=== PATIENT | male | born 1970 | race Caucasian/White ===

== ENCOUNTER → 2016-12-04 | Outpatient (REF) ==
--- NOTE | 2016-12-04 15:22 | REP ---
LUMBAR SPINE SERIES: Three views. HISTORY: Degenerative disc disease. Comparison study is from December 08, 2007. FINDINGS: Lumbar vertebral body heights are preserved. Disc spaces are maintained. Alignment is normal. There is minimal discogenic spurring anteriorly at L3-4 and L5-S1 . Pedicles and posterior elements are intact. Psoas margins are symmetric. Sacrum and SI joints are unremarkable. IMPRESSION: Minimal discogenic spurring anteriorly at L3-4 and L5-S1 . Otherwise negative. Signed by Geronimo Roger MD 12/04/2016 05:04 P
== END ==
LOC: M SMT 14:45
PROVIDERS: ATTEND Internal Medicine
DX: M54.16 Radiculopathy, lumbar region (principal)

== ENCOUNTER 2018-01-02 22:17 | Inpatient (IN) | payer OTHER ==
[2018-01-02 23:32] LABS: BASO % 0.4 % (0.0-1.0); EOS # 0.2 10^3/uL (0.0-0.50); IMMATURE GRANULOCYTE % 0.2 % (0-3.0); LYMPH # 2.9 10^3/uL (1.5-4.5); LYMPH % 31.8 % (24.0-44.0); MEAN CORPUSCULAR HEMOGLOBIN 30.8 pg (27.0-33.0); MEAN CORPUSCULAR HGB CONC 33.3 g/dl (32.0-36.5); MEAN CORPUSCULAR VOLUME 92.3 fl (80.0-96.0); MONO # 0.7 10^3/uL (0.0-0.8); MONO % 7.6 % (0.0-5.0); NEUTROPHILS # 5.3 10^3/uL (1.8-7.7); PLATELET COUNT, AUTOMATED 261 10^3/uL (150-450); RED BLOOD COUNT 4.55 10^6/uL (4.30-6.10); RED CELL DISTRIBUTION WIDTH 12.7 % (11.5-14.5); WHITE BLOOD COUNT 9.1 10^3/uL (4.0-10.0)
[2018-01-02 23:45] LABS: ALBUMIN 4.1 GM/DL (3.2-5.2); ALKALINE PHOSPHATASE 58 U/L (45-117); ALT/SGPT 14 U/L (12-78); ANION GAP 7 MEQ/L (8-16); AST/SGOT 13 U/L (7-37); BILIRUBIN,DIRECT < 0.1 MG/DL (0.0-0.2); BILIRUBIN,TOTAL 0.5 MG/DL (0.2-1.0); BLOOD UREA NITROGEN 20 MG/DL (7-18); CALCIUM LEVEL 9.2 MG/DL (8.5-10.1); CARBON DIOXIDE LEVEL 28 MEQ/L (21-32); CHLORIDE LEVEL 109 MEQ/L (98-107); CPK CREATINE PHOSPHOKINASE 137 U/L (39-308); CREATININE FOR GFR 0.88 MG/DL (0.70-1.30); ETHYL ALCOHOL (ETHANOL) 0.004 % (0.000-0.010); GLOMERULAR FILTRATION RATE > 60.0 (>60); GLUCOSE, FASTING 97 MG/DL (70-100); POTASSIUM SERUM 3.8 MEQ/L (3.5-5.1); SALICYLATE LEVEL < 1.7 MG/DL (5.0-30.0); SODIUM LEVEL 144 MEQ/L (136-145); TOTAL PROTEIN 8.2 GM/DL (6.4-8.2); TROPONIN I < 0.02 NG/ML (< 0.10)
[2018-01-02 23:51] LABS: CK-MB VALUE MASS 2.1 NG/ML (<3.6); MB/CK RELATIVE INDEX 1.53 (< OR =4)
[2018-01-02 23:53] LABS: ACETAMINOPHEN LEVEL < 2.0 UG/ML (10.0-30.0)
[2018-01-03 01:03] LABS: KETONE, URINE AUTO RFX TRACE mg/dL (NEGATIVE); LEUKOCYTE ESTERASE UR AUTO RFX NEGATIVE (NEGATIVE); MUCUS, URINE RFX SMALL (NEGATIVE); NITRITE, URINE AUTO RFX NEGATIVE (NEGATIVE); RBC, URINE AUTO RFX 4 /HPF (0-3); SPECIFIC GRAVITY UR AUTO RFX 1.025 (1.002-1.035); SQUAM EPITHELIAL CELL UR AURFX 0 /HPF (0-6); WBC, URINE AUTO RFX 0 /HPF (0-3)
[2018-01-03 01:06] LABS: AMMONIA < 10 uMOL/L (<32)
[2018-01-03 01:19] LABS: AMPHETAMINES LEVEL URINE NEGATIVE (NEGATIVE); BARBITURATES URINE NEGATIVE (NEGATIVE); BENZODIAZEPINES URINE NEGATIVE (NEGATIVE); CANNABINOIDS URINE NEGATIVE (NEGATIVE); COCAINE METABOLITE URINE NEGATIVE (NEGATIVE); METHADONE URINE NEGATIVE (NEGATIVE); OPIATES URINE NEGATIVE (NEGATIVE); PHENCYCLIDINE URINE NEGATIVE (NEGATIVE)
[2018-01-03] MEDS ORDERED: MOM 30ML SUSPENSION UDC PO (02:15)
[2018-01-03] MEDS ORDERED: traZODone 50 MG TAB PO (02:15)
[2018-01-03] MEDS ORDERED: ACETAMINOPHEN TAB 650MG DOSE (2X325MG) PO (02:15)
[2018-01-03] MEDS ORDERED: MAALOX 30 ML SUSP *UDC PO (02:15)
[2018-01-03] MEDS ORDERED: OLANZapine ORAL DISINTEGRATING TAB 5MG PO (15:30)
[2018-01-03] MEDS: PALIPERIDONE 3 MG ER TAB (INVEGA) PO (21:00)
[2018-01-04] MEDS: PALIPERIDONE 3 MG ER TAB (INVEGA) PO ×2 (08:52→21:00)
[2018-01-05] MEDS: PALIPERIDONE 3 MG ER TAB (INVEGA) PO ×2 (09:00→21:00)
[2018-01-06] MEDS: PALIPERIDONE 3 MG ER TAB (INVEGA) PO ×2 (09:00→20:47)
[2018-01-07] MEDS: PALIPERIDONE 3 MG ER TAB (INVEGA) PO ×2 (09:00→21:00)
[2018-01-07] MEDS: PALIPERIDONE 6 MG ER TAB (INVEGA) PO (12:30)
[2018-01-08] MEDS: PALIPERIDONE 3 MG ER TAB (INVEGA) PO ×3 (08:43→21:00)
[2018-01-08 11:10] LABS: BEDSIDE GLUCOSE 88 MG/DL (70-105)
[2018-01-09] MEDS: PALIPERIDONE 3 MG ER TAB (INVEGA) PO ×2 (08:51→21:00)
[2018-01-10] MEDS: PALIPERIDONE 3 MG ER TAB (INVEGA) PO ×2 (08:56→21:00)
[2018-01-11] MEDS: PALIPERIDONE 3 MG ER TAB (INVEGA) PO ×2 (08:19→20:04)
[2018-01-12] MEDS: PALIPERIDONE 3 MG ER TAB (INVEGA) PO ×2 (09:00→20:17)
[2018-01-13] MEDS: PALIPERIDONE 3 MG ER TAB (INVEGA) PO ×4 (09:00→21:00)
[2018-01-14] MEDS: PALIPERIDONE PALMITATE 234 MG/1.5 ML INJ (INVEGA SUSTENNA)(J2426) IM (11:00)
[2018-01-14] MEDS: PALIPERIDONE 3 MG ER TAB (INVEGA) PO (21:00)
[2018-01-15] MEDS: PALIPERIDONE 3 MG ER TAB (INVEGA) PO (21:00)
== END 2018-01-16 07:05 | disposition home or self-care (01) | DRG 750 ==
LOC: M PSY 01-12 19:11 → M ED 22:17 → M ED INP 01-03 02:06 → M PSY 01-03 02:51
DX: F20.9 Schizophrenia, unspecified (principal); Z91.14 Patient's other noncompliance with medication regimen; F41.9 Anxiety disorder, unspecified; Z65.2 Problems related to release from prison; Z88.0 Allergy status to penicillin

== ENCOUNTER 2018-02-23 15:20 | Inpatient (IN) | payer MEDICARE, MEDICAID, OTHER ==
[2018-02-23 17:42] LABS: HEMATOCRIT 41.4 % (42.0-52.0); HEMOGLOBIN 13.7 g/dl (13.5-17.5); MEAN CORPUSCULAR HGB CONC 33.1 g/dl (32.0-36.5); MEAN CORPUSCULAR VOLUME 90.8 fl (80.0-96.0); PLATELET COUNT, AUTOMATED 241 10^3/uL (150-450); RED BLOOD COUNT 4.56 10^6/uL (4.30-6.10); RED CELL DISTRIBUTION WIDTH 12.5 % (11.5-14.5); WHITE BLOOD COUNT 9.4 10^3/uL (4.0-10.0)
[2018-02-23 18:16] LABS: ALBUMIN 4.3 GM/DL (3.2-5.2); ALKALINE PHOSPHATASE 54 U/L (45-117); ALT/SGPT 24 U/L (12-78); ANION GAP 6 MEQ/L (8-16); AST/SGOT 9 U/L (7-37); BILIRUBIN,DIRECT 0.2 MG/DL (0.0-0.2); BILIRUBIN,TOTAL 0.6 MG/DL (0.2-1.0); BLOOD UREA NITROGEN 13 MG/DL (7-18); CALCIUM LEVEL 9.4 MG/DL (8.5-10.1); CARBON DIOXIDE LEVEL 28 MEQ/L (21-32); CHLORIDE LEVEL 109 MEQ/L (98-107); CREATININE FOR GFR 0.82 MG/DL (0.70-1.30); ETHYL ALCOHOL (ETHANOL) 0.003 % (0.000-0.010); GLOMERULAR FILTRATION RATE > 60.0 (>60); GLUCOSE, FASTING 82 MG/DL (70-100); POTASSIUM SERUM 4.5 MEQ/L (3.5-5.1); SALICYLATE LEVEL < 1.7 MG/DL (5.0-30.0); SODIUM LEVEL 143 MEQ/L (136-145); THYROID STIMULATING HORMONE 0.722 uIU/ML (0.358-3.740); TOTAL PROTEIN 7.6 GM/DL (6.4-8.2)
[2018-02-23 18:22] LABS: ACETAMINOPHEN LEVEL < 2.0 UG/ML (10.0-30.0)
[2018-02-23 19:57] LABS: AMPHETAMINES LEVEL URINE NEGATIVE (NEGATIVE); BARBITURATES URINE NEGATIVE (NEGATIVE); BENZODIAZEPINES URINE NEGATIVE (NEGATIVE); CANNABINOIDS URINE NEGATIVE (NEGATIVE); COCAINE METABOLITE URINE NEGATIVE (NEGATIVE); METHADONE URINE NEGATIVE (NEGATIVE); OPIATES URINE NEGATIVE (NEGATIVE); PHENCYCLIDINE URINE NEGATIVE (NEGATIVE)
[2018-02-23] MEDS ORDERED: MAALOX 30 ML SUSP *UDC PO (20:15)
[2018-02-23] MEDS ORDERED: OLANZapine ORAL DISINTEGRATING TAB 5MG PO (20:15)
[2018-02-23] MEDS ORDERED: ACETAMINOPHEN TAB 650MG DOSE (2X325MG) PO (20:15)
[2018-02-23] MEDS ORDERED: LORazepam 1 MG TAB PO (20:15)
[2018-02-23] MEDS ORDERED: MOM 30ML SUSPENSION UDC PO (20:15)
[2018-02-24] MEDS: risperiDONE 1 MG M-TAB PO ×3 (12:35→20:36)
[2018-02-25] MEDS: risperiDONE 1 MG M-TAB PO ×4 (09:00→21:05)
[2018-02-25] MEDS: traZODone 50 MG TAB PO (21:05)
[2018-02-26] MEDS: risperiDONE 1 MG M-TAB PO ×3 (09:07→21:00)
[2018-02-27] MEDS: risperiDONE 1 MG M-TAB PO ×2 (08:55→20:35)
[2018-02-27] MEDS: TUBERCULIN PPD 5 UNITS/0.1 ML ID (12:22)
[2018-02-28] MEDS: risperiDONE 1 MG M-TAB PO ×2 (08:56→20:25)
[2018-03-01] MEDS: risperiDONE 1 MG M-TAB PO ×2 (09:00→21:00)
[2018-03-01] MEDS: PPD DOCUMENTATION ENTRY MISC XX (13:56)
[2018-03-02] MEDS: risperiDONE 1 MG M-TAB PO ×2 (09:00→21:00)
[2018-03-03] MEDS: risperiDONE 1 MG M-TAB PO ×2 (08:39→21:00)
[2018-03-04] MEDS: risperiDONE 1 MG M-TAB PO ×2 (09:00→20:12)
[2018-03-05] MEDS: risperiDONE 1 MG M-TAB PO ×2 (08:42→20:53)
[2018-03-06] MEDS: risperiDONE 1 MG M-TAB PO ×2 (08:56→21:00)
[2018-03-07] MEDS: risperiDONE 1 MG M-TAB PO ×2 (09:00→20:15)
[2018-03-08] MEDS: risperiDONE 1 MG M-TAB PO ×2 (08:35→21:00)
[2018-03-09] MEDS: risperiDONE 1 MG M-TAB PO ×2 (09:00→21:00)
[2018-03-10] MEDS: risperiDONE 1 MG M-TAB PO ×2 (09:00→21:00)
[2018-03-11] MEDS: risperiDONE 1 MG M-TAB PO ×2 (09:00→21:00)
[2018-03-11] MEDS ORDERED: chlorproMAZINE INJ 50MG/2ML AMP (J3230) IM (11:25)
[2018-03-11] MEDS ORDERED: diphenhydrAMINE INJ 50MG/ML VIAL (J1200) IM (11:25)
[2018-03-11] MEDS: diphenhydrAMINE INJ 50MG/ML VIAL (J1200) IM (11:53)
[2018-03-11] MEDS: chlorproMAZINE INJ 50MG/2ML AMP (J3230) IM (11:53)
[2018-03-12] MEDS: risperiDONE 1 MG M-TAB PO ×2 (09:00→21:00)
[2018-03-13] MEDS: risperiDONE 1 MG M-TAB PO ×2 (08:15→21:00)
[2018-03-14] MEDS: risperiDONE 1 MG M-TAB PO ×2 (09:00→20:14)
[2018-03-15] MEDS: risperiDONE 1 MG M-TAB PO ×2 (08:53→21:00)
[2018-03-16] MEDS: risperiDONE 1 MG M-TAB PO ×2 (08:36→21:00)
[2018-03-17] MEDS: risperiDONE 1 MG M-TAB PO ×2 (08:41→20:41)
[2018-03-18] MEDS: risperiDONE 1 MG M-TAB PO ×2 (09:00→20:48)
[2018-03-19] MEDS: risperiDONE 1 MG M-TAB PO ×2 (09:00→21:55)
[2018-03-19] MEDS: HALOPERIDOL 5 MG/ML VIAL (J1630) IM (10:57)
[2018-03-19] MEDS ORDERED: BENZTROPINE 2 MG TAB PO ×2 (16:00)
[2018-03-19] MEDS ORDERED: diphenhydrAMINE INJ 50MG/ML VIAL (J1200) IM (16:15)
[2018-03-19] MEDS ORDERED: BENZTROPINE MESYLATE 2MG/2ML VIAL IM (16:15)
[2018-03-19] MEDS ORDERED: diphenhydrAMINE 50 MG CAP PO (16:15)
[2018-03-20] MEDS: risperiDONE 1 MG M-TAB PO ×2 (08:55→21:50)
[2018-03-21] MEDS: risperiDONE 1 MG M-TAB PO ×2 (09:11→21:39)
[2018-03-22] MEDS: risperiDONE 1 MG M-TAB PO ×2 (09:05→21:13)
[2018-03-23] MEDS: risperiDONE 1 MG M-TAB PO ×2 (08:42→21:55)
[2018-03-24] MEDS: risperiDONE 1 MG M-TAB PO ×2 (09:40→22:11)
[2018-03-25] MEDS: risperiDONE 1 MG M-TAB PO ×2 (08:35→21:00)
[2018-03-25] MEDS: risperiDONE 2 MG TAB PO (21:46)
[2018-03-26] MEDS: risperiDONE 1 MG M-TAB PO (11:46)
== END 2018-03-26 15:00 | DRG 885 ==
LOC: M PSY 02-26 15:00 → M ED 15:20 → M ED INP 20:10 → M PSY 21:07
DX: F20.0 Paranoid schizophrenia (principal); Z79.899 Other long term (current) drug therapy; Z88.0 Allergy status to penicillin

== ENCOUNTER 2019-05-21 12:54 | Inpatient (IN) | payer MEDICARE, MEDICAID ==
[~2019-05-21] VITALS: Ht 172.7 cm; Wt 93.6 kg
[~2019-05-21 12:54] MED LIST: PATIENT COMMENTS
[2019-05-21 14:31] LABS: HEMATOCRIT 50.9 % (42.0-52.0); HEMOGLOBIN 16.7 g/dl (13.5-17.5); MEAN CORPUSCULAR HEMOGLOBIN 29.9 pg (27.0-33.0); MEAN CORPUSCULAR HGB CONC 32.8 g/dl (32.0-36.5); MEAN CORPUSCULAR VOLUME 91.1 fl (80.0-96.0); PLATELET COUNT, AUTOMATED 298 10^3/uL (150-450); RED BLOOD COUNT 5.59 10^6/uL (4.30-6.10); WHITE BLOOD COUNT 16.5 10^3/uL (4.0-10.0)
[2019-05-21 15:32] LABS: ACETAMINOPHEN LEVEL < 2.0 UG/ML (10.0-30.0); ALT/SGPT 20 U/L (12-78); BILIRUBIN,DIRECT < 0.1 MG/DL (0.0-0.2); BILIRUBIN,TOTAL 0.4 MG/DL (0.2-1.0); BLOOD UREA NITROGEN 9 MG/DL (7-18); CALCIUM LEVEL 9.3 MG/DL (8.5-10.1); CARBON DIOXIDE LEVEL 25 MEQ/L (21-32); CHLORIDE LEVEL 106 MEQ/L (98-107); CREATININE FOR GFR 0.98 MG/DL (0.70-1.30); ETHYL ALCOHOL (ETHANOL) < 0.003 % (0.000-0.010); GLOMERULAR FILTRATION RATE > 60.0 (>60); GLUCOSE, FASTING 83 MG/DL (70-100); POTASSIUM SERUM 3.9 MEQ/L (3.5-5.1); SALICYLATE LEVEL 2.4 MG/DL (5.0-30.0); SODIUM LEVEL 140 MEQ/L (136-145); THYROID STIMULATING HORMONE 0.639 uIU/ML (0.358-3.740); TOTAL PROTEIN 8.3 GM/DL (6.4-8.2)
[2019-05-21 18:05] LABS: AMPHETAMINES LEVEL URINE NEGATIVE (NEGATIVE); BARBITURATES URINE NEGATIVE (NEGATIVE); BENZODIAZEPINES URINE NEGATIVE (NEGATIVE); CANNABINOIDS URINE NEGATIVE (NEGATIVE); COCAINE METABOLITE URINE NEGATIVE (NEGATIVE); METHADONE URINE NEGATIVE (NEGATIVE); OPIATES URINE NEGATIVE (NEGATIVE); PHENCYCLIDINE URINE NEGATIVE (NEGATIVE)
[2019-05-21] MEDS ORDERED: ACETAMINOPHEN TAB 650MG DOSE (2X325MG) PO PRN (18:45)
[2019-05-21] MEDS ORDERED: OLANZapine ORAL DISINTEGRATING TAB 5MG PO PRN (18:45)
[2019-05-21] MEDS ORDERED: MOM 30ML SUSPENSION UDC PO PRN (18:45)
[2019-05-21] MEDS ORDERED: MAALOX 30 ML SUSP *UDC PO PRN (18:45)
[2019-05-21] MEDS ORDERED: traZODone 50 MG TAB PO PRN (18:45)
[2019-05-21] MEDS: PALIPERIDONE 3 MG ER TAB (INVEGA) PO SCH (22:00)
[2019-05-21 23:44] VITALS: BP 125/89
[2019-05-21 23:56] VITALS: BP 125/89
[2019-05-22] MEDS: PALIPERIDONE 3 MG ER TAB (INVEGA) PO SCH ×2 (09:28→21:58)
[2019-05-22] MEDS: ITRACONAZOLE 100 MG CAP (SPORANOX) PO SCH (10:00)
--- NOTE | 2019-05-22 10:04 | HPEPDOC ---
[facility] Medical History & Physical Date of Admission May 22, 2019 Date of Service: May 22, 2019 History and Physical CONSULT FOR: Psych medical H&P HISTORY OF PRESENT ILLNESS: This is a 48-year-old man who sees Jose C Carmona in [place] reveals this with her sister has some long documented history of schizophrenia. Was referred to the emergency room by his sister after was noted he had stopped taking his medication. The evening. He is seen and examined in the inpatient mental health unit today where he provides one-word yes or no answers and is agreeable for medical care. He tells me that he is feeling well other than some itching of his feet. Otherwise patient denies weigh t loss, hair loss, headache, visual changes, chest pain, shortness of breath, cough, nausea, vomiting, diarrhea, abdominal pain, muscle aches, worsening arthritis, change in mood PAST MEDICAL HISTORY: 1. Schizophrenia. 2. Anxiety depression. 3. Bipolar disorder 4. Psychosis. HOME MEDICATIONS: Please see below. ALLERGIES: Please see below PAST SURGICAL HISTORY: 1. None. SOCIAL HISTORY: Lives with: Sr., Employment: Not currently working, Tobacco use: Denies. ETOH: Denies, Illicit drug use: Denies, CODE STATUS: Full code FAMILY HISTORY:Reviewed and noncontributory REVIEW OF SYSTEMS: 10 systems reviewed and negative other than HPI PHYSICAL EXAMINATION: VITAL SIGNS: Please see below GENERAL: Flat affect man appears older than stated agesitting up in bed awake alert speaking in one-word answers] HEENT: Moist mucous membranes no elevation in CVP, port indentation CARDIOVASCULAR: S1 S2 regular no additional heart sounds appreciated. RESPIRATORY: Clear to auscultation bilaterally. ABDOMINAL: Bowel sounds present abdomen soft and nontender, obese EXTREMITIES: No clubbing cyanosis or edema, poor nail care, diffuse tenia pedis NEUROLOGICAL: Spontaneously moves all 4 extremities cranial 2 through 12 grossly intact no gross focal deficits appreciated PSYCHOLOGICAL: Flat LABORATORY DATA: See below. MICROBIOLOGY: Please see below. IMAGING: None ASSESSMENT & PLAN: This is a 48-year-old man admitted with schizophrenia medical nonadherence. PROBLEMS: 1. Schizophrenia: Management as per psychiatry. 2. Tenia pedis. Onychomycosis: We'll start itraconazole 200 mg daily likely 12 weeks. She would likely benefit from close outpatient follow-up with podiatry. We'll check EKG and monitor QT while patient receiving first few doses DVT PROPHYLAXIS: Ambulating Thank you for this interesting consult, we will continue to follow along with you. Please Vocera secure text or call with any specific questions. Vital Signs Vital Signs Date Time Temp Pulse Resp B/P (MAP) Pulse Ox O2 Delivery O2 Flow Rate FiO2 05/22/19 08:48 Room Air 05/21/19 23:56 98.6 82 16 125/89 (101) 99 Laboratory Data Labs 24H Laboratory Tests 2 05/21/19 14:15: Nucleated Red Blood Cells % (auto) 0.0, Anion Gap 9, Glomerular Filtration Rate > 60.0, Calcium Level 9.3, Aspartate Amino Transf (AST/SGOT) 14, Alanine Aminotransferase (ALT/SGPT) 20, Alkaline Phosphatase 75, Total Bilirubin 0.4, Direct Bilirubin < 0.1, Total Protein 8.3H, Albumin 4.0, Albumin/Globulin Ratio 0.93L, Thyroid Stimulating Hormone (TSH) 0.639, Salicylates Level 2.4L, Acetaminophen Level < 2.0L, Ethyl Alcohol Level < 0.003 05/21/19 15:40: Urine Color YELLOW, Urine Appearance CLEAR, Urine pH 5.0, Urine Specific [place] 1.013, Urine Protein NEGATIVE, Urine Glucose (UA) NEGATIVE, Urine Ketones NEGATIVE, Urine Blood 1+H, Urine Nitrite NEGATIVE, Urine Bilirubin NEGATIVE, Urine Urobilinogen 0.2, Urine Leukocyte Esterase NEGATIVE, Urine WBC (Auto) 1, Urine RBC (Auto) 1, Urine Hyaline Casts (Auto) 0, Urine Bacteria (Auto) NEGATIVE, Urine Squamous Epithelial Cells 0, Urine Mucus (Auto) SMALL, Urine Sperm (Auto) , Urine Amphetamines Screen NEGATIVE, Urine Benzodiazepines Screen NEGATIVE, Urine Opiates Screen NEGATIVE, Urine Methadone Screen NEGATIVE, Urine Barbiturates Screen NEGATIVE, Urine Phencyclidine Screen NEGATIVE, Urine Cocaine Metabolite Screen NEGATIVE, Urine Cannabinoids Screen NEGATIVE CBC/BMP Laboratory Tests 05/21/19 14:15 Red Blood Count 5.59, Mean Corpuscular Volume 91.1, Mean Corpuscular Hemoglobin 29.9, Mean Corpuscular Hemoglobin Concent 32.8, Red Cell Distribution Width 14.2 Home Medications No Active Prescriptions or Reported Meds Allergies Coded Allergies: Penicillins (Verified Allergy, Severe, hives, 05/21/19) A-FIB/CHADSVASC A-FIB History Current/History of A-Fib/PAF?: No YARELIS CHRISTIANSON MD May 22, 2019 10:04
[2019-05-22] MEDS ORDERED: LORazepam 1 MG TAB PO STA (14:44)
[2019-05-22] MEDS ORDERED: LORazepam 1 MG TAB PO PRN (14:45)
[2019-05-22 16:05] VITALS: BP 104/68
--- NOTE | 2019-05-22 16:13 | ECGEPIP ---
[facility] Test Date: 2019-05-22 Pat Name: VAL CONTRERAS Department: Room: [place] [address] Gender: Male Security Delivery Specialist: JEANNETTE : 1970 Requested By: YARELIS CHRISTIANSON Order Number: [id number] Reading MD: Parveen Santiago Measurements Intervals [place] Rate: 58 P: 48 SC: 181 QRS: 5 QRSD: 91 T: 40 QT: 387 QTc: 381 Interpretive Statements Sinus bradycardia Somewhat prominent R waves in V1 through V3; consider Right ventricular hypertrophy versus prior PWMI. Normal QT interval No change from 01/03/18 Electronically Signed on 05-22-2019 16:13:11 EDT by Parveen Santiago
[2019-05-23 06:40] VITALS: BP 117/71
[2019-05-23] MEDS: ITRACONAZOLE 100 MG CAP (SPORANOX) PO SCH (08:00)
[2019-05-23] MEDS: PALIPERIDONE 3 MG ER TAB (INVEGA) PO SCH ×2 (08:39→21:00)
[2019-05-23] MEDS: FLUoxetine 10 MG CAP PO SCH (09:00)
--- NOTE | 2019-05-23 12:48 | MHIPNPDOC ---
[facility] Progress Note Progress Note DATE OF SERVICE: 05/23/19 HISTORY: Patient is a 48 year old male who was previously admitted to our Unit (twice in 2018) and transferred the last time to [facility], where he remai modesta hospitalized until January, when he was discharged. According to PSA evaluation in the ED: "Pt. sister requested order picker/assembler order. Pt. has dx of Schizophrenia, has been living with his sister. Sister reported bizarre behavior, pt. decompensating, not taking meds, not showering, verbally aggressive and physically aggressive. Pt. states 'no' when asked if he knows why he is here. He does not communicate besides an occasional 'no'. he is calm and cooperative. He is quite unkempt, stares out of door window, does not show any emotion, blank stare. Pt. was d/c from [facility] 01/2019 after 10 months there. Pt. has not been keeping appt or seeing his AP worker." VITAL SIGNS: See below. NEW TEST RESULTS: New ECG from 05/23/19 shows Sinus rhythm with sinus Arrhythmia, Normal EC G, Unconfirmed Report. Qt-Qtc is 367/392. CURRENT MEDICATIONS: See below. MENTAL STATUS EXAMINATION: Patient is a 48 year old male, who is alert, walking the hallways, wearing hospital clothes, disheveled, with poor hygiene. Speech: Is almost none. He responds with a single word and that word is mostly "no". Impoverished speech. Language skills are impaired at this time Thought processes including: very disorganized, he is psychotic Thought content: Delusional, psychotic, he responds to internal stimuli. Abstract reasoning, and computation: Poor Description of associations: Poor, loose Description of abnormal or psychotic thoughts: Delusional, disorganized, he responds to internal stimuli. Denies HI/SI. Judgment: poor. Insight: poor. Orientation: not oriented, his thought is disorganized. Recent and remote memory: impaired. Attention span and concentration: poor. Fund of knowledge: unable to assess Mood: "i don't know". Affect: flat, constricted DIAGNOSES: 1. Schizophrenia, chronic, severe ASSESSMENT: Patient's presentation is similar to previous hospitalizations. he has not been aggressive or violent,. He can be re directed. He seems to be depressed. I will start treatment with Prozac 10 mgs PO daily. MANAGEMENT PLAN: 1. Paliperidone 3 mgs PO BID 2. Prozac 10 mgs PO daily TIME SPENT: 30 minutes. Vital Signs Vital Signs Date Time Temp Pulse Resp B/P (MAP) Pulse Ox O2 Delivery O2 Flow Rate FiO2 05/23/19 06:40 97.4 61 16 117/71 (86) 05/22/19 08:48 Room Air 05/21/19 23:56 99 Current Medications Current Medications Medications (Trade) Dose Ordered Sig/Ana Route PRN Reason Start Time Stop Time Status Last Admin Dose Admin Acetaminophen (Tylenol Tab) 650 mg Q6HP PRN PO HEADACHE or DISCOMFORT 05/21/19 18:45 Al Hydrox/Mg Hydrox/Simethicone (Mylanta) 30 ml Q4HP PRN PO HEARTBURN/INDIGESTION 05/21/19 18:45 Home Med (Med Rec Complete!) ASDIRECTED XX 05/21/19 18:00 05/21/19 17:58 DC Home Med (Med Rec Complete!) ASDIRECTED XX 05/21/19 19:30 05/21/19 19:31 DC Itraconazole (Sporanox) 200 mg DAILY@0800 PO 05/22/19 10:00 05/29/19 09:59 Lorazepam (Ativan) 1 mg STAT STAT PO 05/22/19 14:44 05/22/19 14:45 Cancel Lorazepam (Ativan) 1 mg TID PRN PO ANXIETY 05/22/19 14:45 Cancel Magnesium Hydroxide (Milk Of Magnesia) 30 ml DAILYPRN PRN PO CONSTIPATION 05/21/19 18:45 Olanzapine (ZyPREXA ZYDIS) 5 mg Q6HP PRN PO ANXIETY/AGITATION 05/21/19 18:45 Paliperidone (Invega) 3 mg BID PO 05/21/19 21:00 05/23/19 08:39 Trazodone HCl (Desyrel) 50 mg QHSP PRN PO INSOMNIA 05/21/19 18:45 Allergies Coded Allergies: Penicillins (Verified Allergy, Severe, hives, 05/21/19) ZURI BASSETT MD May 23, 2019 12:47
--- NOTE | 2019-05-23 12:49 | MHHPEPDOC ---
[facility] History & Physical History and Physical DATE OF ADMISSION: May 21, 2019 at 18:38 LEGAL STATUS AT ADMISSION: . CHIEF COMPLAINT: genetic supervisor order issued from [facility] for dangerous behavior History of Present Illness HISTORY OF THE PRESENT ILLNESS: Patient is a 48 year old male who was previously admitted to our Unit (twice in 2018) and transferred the last time to [facility], where he remained hospitalized until January, when he was discharged. According to PSA evaluation in the ED: "Pt. sister requested supervisor picking crew order. Pt. has dx of Schizophrenia, has been living with his sister. Sister reported bizarre behavior, pt. decompensating, not taking meds, not showering, verbally aggressive and physically aggressive. Pt. states 'no' when asked if he knows why he is here. He does not communicate besides an occassional 'no'. he is calm and cooperative. He is quite unkempt, stares out of door window, does not show any emotion, blank stare. Pt. was d/c from [facility] 01/2019 after 10 months there. Pt. has not been keeping appt or seeing his AP worker." Psychiatric Review of Systems Depression (2 or more weeks): denies (Patient is a por historian but he says he is not depressed and has not been depressed. He denies having suicidal thoughts or intentions and added: How would I kill myself? How do you that?) Trish (4 or more days of): other (Patient is a poor historian) Psychosis: denies PTSD: other (Patient is a poor historian, he is not answering to all the questions) Anxiety: other (Patient is a poor historian, he didn't answer most of the questions ) Anxiety/ 6 months or more of: other (Patient is appor historian) Past Psychiatric History Previous Psychiatric Diagnosis: Previous diagnosis of schizophrenia Previous Psychiatric Admissions: Twice during 2018, the last time, he was transferred to [facility], where he was treated for 10 months and recently (January 2019) discharged. Suicide Attempts: "No" Psychiatric Follow-up: According to h/o he has not been compliant with medications, nor f/u appointments Psychiatric medications: Unknown, he has not been compliant. Past Medical History Medical Problems Patient is a poor historian, Family Medical/Psychiatric HX Medical Problems Denies Psychiatric Disorders: H/O Schizophrenia, medications and f/u non compliance. Addiction: No Suicide Attemps/Completions: "No" Addiction History denies Social History Childhood: Patient is a poor historian, he denies having problems with his parents or his siblings as a child Abuse/Trauma: Denies Current Living Situation: He was living with his sister since he was d/c/d from [facility] in January 2019 but apparently he became aggressive and she became concerned, called the Police because she felt unsafe with him being decompensated. Education: According to previous records, he dropped out of school while he was in 10th. grade. Employment: Unemployed Social Support: Until recently, his sister and last year. Legal: Last year he was in penitentiary because apparently he was aggressive towards fam rosmery members. Marital: Not , has 23 year old daughter Mental Status Examination Mental Status Examination General Appearance: unkempt, disheveled, ds/not appear stated age (He looks older than stated), hospital scubs/clothing Build: thin Demeanor: mistrustful, withdrawn, preoccupied Eye Contact: avoidant Activity: slowed, anxious Behavior: cooperative, resistant Speech: non-spontaneous, impoverished, mild Mood "Nervous" Affect: constricted, anxious Thought Process: blocked, slow Thought Content (Delusions): none reported Thought Content (Other): preoccupied, internal-stimuli Thought Content (Aggressive): none reported Perception (Hallucinations): none reported Perception (Other): none reported Cognition (Impairment of): memory Cognition(Intelligence Est.): other (Patient seems unable to answers most of the questions during his psychiatric interview but he is capable of answering others, and he is oriented x 3. ) Oriented: Awake, Alert, Oriented times three Insight: poor Judgment: Poor Psychosis: Denies Diagnoses 1. R/O Unspecified psychotic disorder 2. R/O Schizophrenia, residual type 3. R/O Anxiety disorder Assement/Plan Assessment Patient has been walking in the hallway,he has not been aggressive or violent. He follows directions. he seems to be responding to internal stimuli. he has not had a shower since he was discharged from [facility] in January and this morning, he went to the shower, got in and got out immediately, he didn't shower. He is very ill and this is very similar to previous presentations. patient has a h/o non compliance. Initial Treatment Plan 1. Patient was admitted on a 9.39 status. 2. Complete history was obtained. 3. With patients permission, family will be contacted and database will be expanded. 4. Patients medication regimen will be reviewed and changed accordingly. 5. Patient will be provided with protected environment. 6. Patient will be treated with individual, group, and milieu therapies. 7. Patient will receive supportive psych-education. 8. Discharge planning will commence immediately. 9. Outpatient follow-up treatment will be strongly recommended. 10. The initial treatment plan will focus initially on: * Depression. * Risk for suicide. * Anxiety * Risk for harming others * Poor impulse control * Altered perceptions? ESTIMATED LENGTH OF STAY: 7-10 DAYS. Vital Signs Vital Signs Date Time Temp Pulse Resp B/P (MAP) Pulse Ox O2 Delivery O2 Flow Rate FiO2 05/22/19 08:48 Room Air 05/21/19 23:56 98.6 82 16 125/89 (101) 99 Laboratory Data 24H Labs Laboratory Tests 2 05/21/19 14:15: Nucleated Red Blood Cells % (auto) 0.0, Anion Gap 9, Glomerular Filtration Rate > 60.0, Calcium Level 9.3, Aspartate Amino Transf (AST/SGOT) 14, Alanine Aminotransferase (ALT/SGPT) 20, Alkaline Phosphatase 75, Total Bilirubin 0.4, Direct Bilirubin < 0.1, Total Protein 8.3H, Albumin 4.0, Albumin/Globulin Ratio 0.93L, Thyroid Stimulating Hormone (TSH) 0.639, Salicylates Level 2.4L, Acetaminophen Level < 2.0L, Ethyl Alcohol Level < 0.003 05/21/19 15:40: Urine Color YELLOW, Urine Appearance CLEAR, Urine pH 5.0, Urine Specific [place] 1.013, Urine Protein NEGATIVE, Urine Glucose (UA) NEGATIVE, Urine Ketones NEGATIVE, Urine Blood 1+H, Urine Nitrite NEGATIVE, Urine Bilirubin NEGATIVE, Urine Urobilinogen 0.2, Urine Leukocyte Esterase NEGATIVE, Urine WBC (Auto) 1, Urine RBC (Auto) 1, Urine Hyaline Casts (Auto) 0, Urine Bacteria (Auto) NEGATIVE, Urine Squamous Epithelial Cells 0, Urine Mucus (Auto) SMALL, Urine Sperm (Auto) , Urine Amphetamines Screen NEGATIVE, Urine Benzodiazepines Screen NEGATIVE, Urine Opiates Screen NEGATIVE, Urine Methadone Screen NEGATIVE, Urine Barbiturates Screen NEGATIVE, Urine Phencyclidine Screen NEGATIVE, Urine Cocaine Metabolite Screen NEGATIVE, Urine Cannabinoids Screen NEGATIVE CBC/BMP Laboratory Tests 05/21/19 14:15 Red Blood Count 5.59, Mean Corpuscular Volume 91.1, Mean Corpuscular Hemoglobin 29.9, Mean Corpuscular Hemoglobin Concent 32.8, Red Cell Distribution Width 14.2 Medications No Active Prescriptions or Reported Meds Allergies Coded Allergies: Penicillins (Verified Allergy, Severe, hives, 05/21/19) A-FIB/CHADSVASC A-FIB History Current/History of A-Fib/PAF?: No Current PO Anticoag Therapy: No Age/Risk Factor Scoring CHADSVASC: CHADSVASC Response (Comments) Value Age Risk Factor Age < 65 years old 0 Gender Risk Factor Male 0 Hx of CHF No 0 Hx of HTN No 0 Hx of Stroke/TIA/or VTE No 0 Hx of Diabetes No 0 Hx of Vascular Disease No 0 Total 0 Treatment Treatment ordered: NONE Reason Anticoagulant not given: Not indicated/[id number] ZURI BASSETT MD May 22, 2019 14:08
--- NOTE | 2019-05-23 15:49 | ECGEPIP ---
[facility] Test Date: 2019-05-23 Pat Name: VAL CONTRERAS Department: Room: [place] [address] Gender: Male Control Systems Specialist: JEANNETTE : 1970 Requested By: YARELIS CHRISTIANSON Order Number: [id number] Reading MD: Parveen Santiago Measurements Intervals [place] Rate: 72 P: 60 MO: 169 QRS: 12 QRSD: 93 T: 43 QT: 367 QTc: 404 Interpretive Statements SINUS RHYTHM WITH SINUS ARRHYTHMIA Incomplete Right bundle branch block with prominent R waves in V1 through V3; consider Right ventricular hypertrophy versus prior PWMI. Increased rate but otherwise unchanged from 05/22/19 Electronically Signed on 05-23-2019 15:48:50 EDT by Parveen Santiago
[2019-05-23 16:05] VITALS: BP 108/68
[2019-05-24 06:23] VITALS: BP 119/78
[2019-05-24] MEDS: ITRACONAZOLE 100 MG CAP (SPORANOX) PO SCH (09:19)
[2019-05-24] MEDS: FLUoxetine 10 MG CAP PO SCH (09:19)
[2019-05-24] MEDS: PALIPERIDONE 3 MG ER TAB (INVEGA) PO SCH ×2 (09:19→23:38)
--- NOTE | 2019-05-24 09:29 | MHIPNPDOC ---
[facility] Progress Note Progress Note Inpatient Progress Note Efren Bettencourt MRN: N/A Date of : N/A Date of Service: 05/24/2019 History of Present Illness The patient is a 48-year-old man who previously was admitted to the inpatient unit in 2018 and transferred last time to [place], presented initially on a pickup order as he had been living with his sister and he had become increasingly bizarre, decompensated, not taking his medications, becoming verbally and physically aggressive. He is noted to be unkempt and had been staring into the window on until assessment in the ER fairly psychotic. Interval History I attempted to meet with the patient, however, he refused to get out of bed. He declined pleasantly, but say that he was "good." I had asked if he has any suicidal or homicidal thoughts and he declined or medication interactions. He has declined to meet with the majority of his treatment team even after significant prompting. He has had no major behavioral problems overnight, but he has been noted to be fairly bizarre, meandering around the unit, not attending groups and has in general been unable to keep his hygiene as he even with prompting is unable to engage. Review Of Systems As above. Psychotherapy None on this visit. Vital Signs Reviewed. Mental Status Examination General: Poor hygiene Speech: Sparse Thought processes: Appears linear MSK: Smooth and coordinated gait, no signs of tremors or involuntary orofacial movements Thought content: Unclear Abstract reasoning, and computation: Impaired Description of associations: Impaired Description of abnormal or psychotic thoughts: Denies any suicidal or homicidal ideation. Denies any auditory or visual hallucinations. Does not appear to be responding to internal stimuli. Judgment: Poor Insight: Poor Orientation: Alert and orientated 3 Cognition: Grossly normal Recent and remote memory: Intact Attention span and concentration: Intact Fund of knowledge: Adequate Mood: "Fine" Affect: Flat with little reactivity Diagnoses Unspecified psychotic disorder. Rule out schizophrenia. Assessment and Plan Unspecified psychotic disorder: Continue the paliperidone 3 mg BID and 10 mg of Prozac started by Dr. Powell over the weekend. Further observation as he appears to have a fairly long and protracted course in the past. Disposition The patient will need a further admission as he is still fairly psychotic and unable to care for himself. He remains unkempt and unable to cooperate with even the most basic prompting to care for himself. Time Spent 10 minutes. Friday Vital Signs Vital Signs Date Time Temp Pulse Resp B/P (MAP) Pulse Ox O2 Delivery O2 Flow Rate FiO2 05/24/19 06:23 98.0 73 18 119/78 (92) 05/22/19 08:48 Room Air 05/21/19 23:56 99 Current Medications Current Medications Medications (Trade) Dose Ordered Sig/Ana Route PRN Reason Start Time Stop Time Status Last Admin Dose Admin Acetaminophen (Tylenol Tab) 650 mg Q6HP PRN PO HEADACHE or DISCOMFORT 05/21/19 18:45 Al Hydrox/Mg Hydrox/Simethicone (Mylanta) 30 ml Q4HP PRN PO HEARTBURN/INDIGESTION 05/21/19 18:45 Fluoxetine HCl (PROzac) 10 mg DAILY PO 05/23/19 09:00 05/24/19 09:19 Home Med (Med Rec Complete!) ASDIRECTED XX 05/21/19 18:00 05/21/19 17:58 DC Home Med (Med Rec Complete!) ASDIRECTED XX 05/21/19 19:30 05/21/19 19:31 DC Itraconazole (Sporanox) 200 mg DAILY@0800 PO 05/22/19 10:00 05/29/19 09:59 05/24/19 09:19 Lorazepam (Ativan) 1 mg STAT STAT PO 05/22/19 14:44 05/22/19 14:45 Cancel Lorazepam (Ativan) 1 mg TID PRN PO ANXIETY 05/22/19 14:45 Cancel Magnesium Hydroxide (Milk Of Magnesia) 30 ml DAILYPRN PRN PO CONSTIPATION 05/21/19 18:45 Olanzapine (ZyPREXA ZYDIS) 5 mg Q6HP PRN PO ANXIETY/AGITATION 05/21/19 18:45 Paliperidone (Invega) 3 mg BID PO 05/21/19 21:00 05/24/19 09:19 Trazodone HCl (Desyrel) 50 mg QHSP PRN PO INSOMNIA 05/21/19 18:45 Allergies Coded Allergies: Penicillins (Verified Allergy, Severe, hives, 05/21/19) RAMIRO VANN DO May 24, 2019 09:29
[2019-05-24 15:44] VITALS: BP 101/62
[2019-05-25 06:29] VITALS: BP 123/84
[2019-05-25] MEDS: ITRACONAZOLE 100 MG CAP (SPORANOX) PO SCH (08:33)
[2019-05-25] MEDS: PALIPERIDONE 3 MG ER TAB (INVEGA) PO SCH ×2 (08:33→23:31)
[2019-05-25] MEDS: FLUoxetine 10 MG CAP PO SCH (08:33)
--- NOTE | 2019-05-25 12:10 | MHIPNPDOC ---
[facility] Progress Note Progress Note Inpatient Progress Note Efren Bettencourt MRN: N/A Date of : N/A Date of Service: 05/25/2019 History of Present Illness The patient is a 48-year-old man who previously was admitted to the inpatient unit in 2018 and transferred last time to [place], presented initially on a pickup order as he had been living with his sister and he had become increasingly bizarre, decompensated, not taking his medications, becoming verbally and physically aggressive. He is noted to be unkempt and had been staring into the window on until assessment in the ER fairly psychotic. Interval History Attempted again to meet with patient today, he declined, sitting in his bed staring unusually into the wall. The patient has been fairly isolative for staff, has not been attending groups, but has no major behavioral problems. When asked if the patient had any medication problems, he declined stating that he did not, however, still attempted to get basic clinical information from patient as he sat in bed. He did not appear to resist my further questioning. He reports that he feels "fine here." Review Of Systems General: Denies fever or appetite changes Cardiovascular: Denies Chest pain or palpitations GI: Denies Nausea, vomiting, or bowel changes Respiratory: Denies shortness of breath or cough Neuro: Denies dizziness, tremors Derm: Denies any rashes or pruritus : Denies any dysuria or urinary problem MSK: Denies any muscle tightness or stiffness HEENT: Denies any vision changes or headaches Heme/Lymph: denies any bruising or bleeding Endo: denies any cold/heat intolerance or water intake changes Psychotherapy None on this visit. Vital Signs Reviewed. Mental Status Examination General: Poor hygiene Speech: Sparse Thought processes: Appears linear MSK: Smooth and coordinated gait, no signs of tremors or involuntary orofacial movements Thought content: Unclear Abstract reasoning, and computation: Impaired Description of associations: Impaired Description of abnormal or psychotic thoughts: Denies any suicidal or homicidal ideation. Denies any auditory or visual hallucinations. Does not appear to be responding to internal stimuli. Judgment: Poor Insight: Poor Orientation: Alert and orientated 3 Cognition: Grossly normal Recent and remote memory: Intact Attention span and concentration: Intact Fund of knowledge: Adequate Mood: "Fine" Affect: Flat with little reactivity Diagnoses Unspecified psychotic disorder. Rule out schizophrenia. Assessment and Plan Unspecified psychotic disorder: Continue paliperidone 3 mg BID. We will consider adding six at night. Later if patient does not make improvement, continue Prozac 10 mg. Disposition The patient will need a further admission as he is still fairly psychotic and unable to care for himself. He remains unkempt and unable to cooperate with even the most basic prompting to care for himself. Time Spent 15 minutes. Friday Vital Signs Vital Signs Date Time Temp Pulse Resp B/P (MAP) Pulse Ox O2 Delivery O2 Flow Rate FiO2 05/25/19 06:29 97.0 60 18 123/84 (97) 05/22/19 08:48 Room Air 05/21/19 23:56 99 Current Medications Current Medications Medications (Trade) Dose Ordered Sig/Ana Route PRN Reason Start Time Stop Time Status Last Admin Dose Admin Acetaminophen (Tylenol Tab) 650 mg Q6HP PRN PO HEADACHE or DISCOMFORT 05/21/19 18:45 Al Hydrox/Mg Hydrox/Simethicone (Mylanta) 30 ml Q4HP PRN PO HEARTBURN/INDIGESTION 05/21/19 18:45 Fluoxetine HCl (PROzac) 10 mg DAILY PO 05/23/19 09:00 05/25/19 08:33 Home Med (Med Rec Complete!) ASDIRECTED XX 05/21/19 18:00 05/21/19 17:58 DC Home Med (Med Rec Complete!) ASDIRECTED XX 05/21/19 19:30 05/21/19 19:31 DC Itraconazole (Sporanox) 200 mg DAILY@0800 PO 05/22/19 10:00 05/29/19 09:59 05/25/19 08:33 Lorazepam (Ativan) 1 mg STAT STAT PO 05/22/19 14:44 05/22/19 14:45 Cancel Lorazepam (Ativan) 1 mg TID PRN PO ANXIETY 05/22/19 14:45 Cancel Magnesium Hydroxide (Milk Of Magnesia) 30 ml DAILYPRN PRN PO CONSTIPATION 05/21/19 18:45 Olanzapine (ZyPREXA ZYDIS) 5 mg Q6HP PRN PO ANXIETY/AGITATION 05/21/19 18:45 Paliperidone (Invega) 3 mg BID PO 05/21/19 21:00 05/25/19 08:33 Trazodone HCl (Desyrel) 50 mg QHSP PRN PO INSOMNIA 05/21/19 18:45 Allergies Coded Allergies: Penicillins (Verified Allergy, Severe, hives, 05/21/19) RAMIRO VANN DO May 25, 2019 12:10
[2019-05-25 17:57] VITALS: BP 111/73
[2019-05-26 06:34] VITALS: BP 122/76
--- NOTE | 2019-05-26 08:12 | ECGEPIP ---
[facility] Test Date: 2019-05-24 Pat Name: VAL CONTRERAS Department: Room: [place] [address] Gender: Male [employer] Letter [employer]rier: DARREN : 1970 Requested By: YARELIS CHRISTIANSON Order Number: [id number] Reading MD: Sade Mckinnon Measurements Intervals [place] Rate: 73 P: 62 IA: 169 QRS: 37 QRSD: 89 T: 44 QT: 340 QTc: 375 Interpretive Statements SINUS RHYTHM INCOMPLETE RIGHT BUNDLE BRANCH BLOCK EARLY R WAVE PROGRESSION SIMILAR TO 05/23/19 Electronically Signed on 05-26-2019 8:12:23 EDT by Sade Mckinnon
[2019-05-26] MEDS: FLUoxetine 10 MG CAP PO SCH (08:47)
[2019-05-26] MEDS: ITRACONAZOLE 100 MG CAP (SPORANOX) PO SCH (08:47)
[2019-05-26] MEDS: PALIPERIDONE 3 MG ER TAB (INVEGA) PO SCH ×2 (08:47→21:00)
--- NOTE | 2019-05-26 16:33 | MHIPNPDOC ---
[facility] Progress Note Progress Note Inpatient Progress Note Efren Bettencourt MRN: N/A Date of : N/A Date of Service: 05/26/2019 History of Present Illness The patient is a 48-year-old man who previously was admitted to the inpatient unit in 2018 and transferred last time to [place], presented initially on a pickup order as he had been living with his sister and he had become increasingly bizarre, decompensated, not taking his medications, becoming verbally and physically aggressive. He is noted to be unkempt and had been staring into the window on until assessment in the ER fairly psychotic. Interval History The patient was attempted to be met with today. However, he declines to meet with this provider. He still remains odd, walks around the unit. Has had no behavioral problems, but at times appears volitional in terms of who he will not interact with. He does not attend groups, but has been noted to be fairly unusual in his affect. He's denies any side effects of medications or other concerns. Review Of Systems As above. Psychotherapy None on this visit. Vital Signs Reviewed. Mental Status Examination General: Poor hygiene Speech: Sparse Thought processes: Appears linear MSK: Smooth and coordinated gait, no signs of tremors or involuntary orofacial movements Thought content: Unclear Abstract reasoning, and computation: Impaired Description of associations: Impaired Description of abnormal or psychotic thoughts: Denies any suicidal or homicidal ideation. Denies any auditory or visual hallucinations. Does not appear to be responding to internal stimuli. Judgment: Poor Insight: Poor Orientation: Alert and orientated 3 Cognition: Grossly normal Recent and remote memory: Intact Attention span and concentration: Intact Fund of knowledge: Adequate Mood: "Fine" Affect: Flat with little reactivity Diagnoses Unspecified psychotic disorder. Rule out schizophrenia. Assessment and Plan Unspecified psychotic disorder: Increase paliperidone to 9 mg QHS. Continue Prozac 10 mg daily. Disposition The patient will need a further admission as he is still fairly psychotic and unable to care for himself. He remains unkempt and unable to cooperate with even the most basic prompting to care for himself. Time Spent 10 minutes [id number]. Friday Vital Signs Vital Signs Date Time Temp Pulse Resp B/P (MAP) Pulse Ox O2 Delivery O2 Flow Rate FiO2 05/26/19 06:34 97.2 74 18 122/76 (91) 05/22/19 08:48 Room Air 05/21/19 23:56 99 Current Medications Current Medications Medications (Trade) Dose Ordered Sig/Ana Route PRN Reason Start Time Stop Time Status Last Admin Dose Admin Acetaminophen (Tylenol Tab) 650 mg Q6HP PRN PO HEADACHE or DISCOMFORT 05/21/19 18:45 Al Hydrox/Mg Hydrox/Simethicone (Mylanta) 30 ml Q4HP PRN PO HEARTBURN/INDIGESTION 05/21/19 18:45 Fluoxetine HCl (PROzac) 10 mg DAILY PO 05/23/19 09:00 05/26/19 08:47 Home Med (Med Rec Complete!) ASDIRECTED XX 05/21/19 18:00 05/21/19 17:58 DC Home Med (Med Rec Complete!) ASDIRECTED XX 05/21/19 19:30 05/21/19 19:31 DC Itraconazole (Sporanox) 200 mg DAILY@0800 PO 05/22/19 10:00 05/29/19 09:59 05/26/19 08:47 Lorazepam (Ativan) 1 mg STAT STAT PO 05/22/19 14:44 05/22/19 14:45 Cancel Lorazepam (Ativan) 1 mg TID PRN PO ANXIETY 05/22/19 14:45 Cancel Magnesium Hydroxide (Milk Of Magnesia) 30 ml DAILYPRN PRN PO CONSTIPATION 05/21/19 18:45 Olanzapine (ZyPREXA ZYDIS) 5 mg Q6HP PRN PO ANXIETY/AGITATION 05/21/19 18:45 Paliperidone (Invega) 3 mg BID PO 05/21/19 21:00 05/26/19 08:47 Trazodone HCl (Desyrel) 50 mg QHSP PRN PO INSOMNIA 05/21/19 18:45 Allergies Coded Allergies: Penicillins (Verified Allergy, Severe, hives, 05/21/19) RAMIRO VANN DO May 26, 2019 16:33
[2019-05-26 17:52] VITALS: BP 103/66
[2019-05-27 06:45] VITALS: BP 105/63
[2019-05-27] MEDS: ITRACONAZOLE 100 MG CAP (SPORANOX) PO SCH (08:58)
[2019-05-27] MEDS: FLUoxetine 10 MG CAP PO SCH (08:59)
[2019-05-27] MEDS: PALIPERIDONE 3 MG ER TAB (INVEGA) PO SCH ×2 (08:59→20:52)
--- NOTE | 2019-05-27 10:52 | MHIPNPDOC ---
[facility] Progress Note Progress Note Inpatient Progress Note Efren Bettencourt MRN: N/A Date of : N/A Date of Service: 05/27/2019 History of Present Illness The patient is a 48-year-old man who previously was admitted to the inpatient unit in 2018 and transferred last time to [place], presented initially on a pickup order as he had been living with his sister and he had become increasingly bizarre, decompensated, not taking his medications, becoming verbally and physically aggressive. He is noted to be unkempt and had been staring into the window on until assessment in the ER fairly psychotic. Interval History The patient was attempted to be met with, however, he declines meeting with this provider. He still walks bizarrely around the unit. Denying any side effects from medications or any acute issues. Observation on the unit appears to show the patient interacts at times, but remains isolative to his room. He has not attended groups and generally remains fairly distorted, needing significant prompting in order to take care of basic necessities or feed himself. Review Of Systems Unknown. Psychotherapy None on this visit. Vital Signs Reviewed. Mental Status Examination General: Poor hygiene Speech: Sparse Thought processes: Appears linear MSK: Smooth and coordinated gait, no signs of tremors or involuntary orofacial movements Thought content: Unclear Abstract reasoning, and computation: Impaired Description of associations: Impaired Description of abnormal or psychotic thoughts: Denies any suicidal or homicidal ideation. Denies any auditory or visual hallucinations. Does not appear to be responding to internal stimuli. Judgment: Poor Insight: Poor Orientation: Alert and orientated 3 Cognition: Grossly normal Recent and remote memory: Intact Attention span and concentration: Intact Fund of knowledge: Adequate Mood: "Fine" Affect: Flat with little reactivity Diagnoses Unspecified psychotic disorder. Rule out schizophrenia. Assessment and Plan Unspecified psychotic disorder: Increase paliperidone to 9 mg QHS. Continue Prozac 10 mg daily. Disposition The patient will need a further admission as he is still fairly psychotic and unable to care for himself. He remains unkempt and unable to cooperate with even the most basic prompting to care for himself. Time Spent 10 minutes. Vital Signs Vital Signs Date Time Temp Pulse Resp B/P (MAP) Pulse Ox O2 Delivery O2 Flow Rate FiO2 05/27/19 06:45 97.8 62 12 105/63 (77) 05/22/19 08:48 Room Air 05/21/19 23:56 99 Current Medications Current Medications Medications (Trade) Dose Ordered Sig/Ana Route PRN Reason Start Time Stop Time Status Last Admin Dose Admin Acetaminophen (Tylenol Tab) 650 mg Q6HP PRN PO HEADACHE or DISCOMFORT 05/21/19 18:45 Al Hydrox/Mg Hydrox/Simethicone (Mylanta) 30 ml Q4HP PRN PO HEARTBURN/INDIGESTION 05/21/19 18:45 Fluoxetine HCl (PROzac) 10 mg DAILY PO 05/23/19 09:00 05/27/19 08:59 Home Med (Med Rec Complete!) ASDIRECTED XX 05/21/19 18:00 05/21/19 17:58 DC Home Med (Med Rec Complete!) ASDIRECTED XX 05/21/19 19:30 05/21/19 19:31 DC Itraconazole (Sporanox) 200 mg DAILY@0800 PO 05/22/19 10:00 05/29/19 09:59 05/27/19 08:58 Lorazepam (Ativan) 1 mg STAT STAT PO 05/22/19 14:44 05/22/19 14:45 Cancel Lorazepam (Ativan) 1 mg TID PRN PO ANXIETY 05/22/19 14:45 Cancel Magnesium Hydroxide (Milk Of Magnesia) 30 ml DAILYPRN PRN PO CONSTIPATION 05/21/19 18:45 Olanzapine (ZyPREXA ZYDIS) 5 mg Q6HP PRN PO ANXIETY/AGITATION 05/21/19 18:45 Paliperidone (Invega) 3 mg BID PO 05/21/19 21:00 05/27/19 08:59 Trazodone HCl (Desyrel) 50 mg QHSP PRN PO INSOMNIA 05/21/19 18:45 Allergies Coded Allergies: Penicillins (Verified Allergy, Severe, hives, 05/21/19) RMAIRO VANN DO May 27, 2019 10:52
[2019-05-28 06:11] VITALS: BP 121/68
[2019-05-28] MEDS: FLUoxetine 10 MG CAP PO SCH (09:25)
[2019-05-28] MEDS: ITRACONAZOLE 100 MG CAP (SPORANOX) PO SCH (09:25)
[2019-05-28 17:28] VITALS: BP 110/72
[2019-05-28] MEDS: PALIPERIDONE 3 MG ER TAB (INVEGA) PO SCH (21:54)
[2019-05-29 06:27] VITALS: BP 110/65
[2019-05-29] MEDS: ITRACONAZOLE 100 MG CAP (SPORANOX) PO SCH (08:00)
[2019-05-29] MEDS: FLUoxetine 10 MG CAP PO SCH (08:50)
[2019-05-29 15:57] VITALS: BP 98/59
[2019-05-29] MEDS: PALIPERIDONE 3 MG ER TAB (INVEGA) PO SCH (21:00)
[2019-05-30 06:19] VITALS: BP 128/86
[2019-05-30] MEDS: FLUoxetine 10 MG CAP PO SCH (08:51)
[2019-05-30 15:53] VITALS: BP 111/67
[2019-05-30] MEDS: PALIPERIDONE 3 MG ER TAB (INVEGA) PO SCH (21:00)
[2019-05-31 06:04] VITALS: BP 117/76
[2019-05-31] MEDS: FLUoxetine 10 MG CAP PO SCH (09:00)
--- NOTE | 2019-05-31 10:19 | MHIPNPDOC ---
[facility] Progress Note Progress Note Inpatient Progress Note Efren Bettencourt MRN: N/A Date of : N/A Date of Service: 05/31/2019 History of Present Illness The patient is a 48-year-old man who previously was admitted to the inpatient unit in 2018 and transferred last time to [place], presented initially on a pickup order as he had been living with his sister and he had become increasingly bizarre, decompensated, not taking his medications, becoming verbally and physically aggressive. He is noted to be unkempt and had been staring into the window on until assessment in the ER fairly psychotic. Interval History The patient is attempted to be met with today. He initially declines, however, he does allow me to ask a few questions. He has been laying in bed, however, he does get up to interact with staff at times. He has been denying any symptoms other than saying "I like it here." He has at times answered appropriately and other times has been bizarre, walking around the unit. He is attending to his very basic needs, but needs significant prompting for hygiene and other activities of daily living. He describes that he is not having any trouble with the medications and has been sleeping well. Review Of Systems General: Denies fever or appetite changes Cardiovascular: Denies chest pain or palpitations GI: Denies Nausea, vomiting, or bowel changes Respiratory: Denies shortness of breath or cough Neuro: Denies dizziness, tremors Derm: Denies any rashes or pruritus : Denies any dysuria or urinary dysfunction MSK: Denies any muscle tightness or stiffness HEENT: Denies any vision changes or headaches Heme/Lymph: Denies any bruising or bleeding Endo: Denies any cold/heat intolerance or water intake changes Psychotherapy None on this visit. Vital Signs Reviewed. Mental Status Examination General: Poor hygiene Speech: Sparse Thought processes: Appears linear MSK: Smooth and coordinated gait, no signs of tremors or involuntary orofacial movements Thought content: Unclear Abstract reasoning, and computation: Impaired Description of associations: Impaired Description of abnormal or psychotic thoughts: Denies any suicidal or homicidal ideation. Denies any auditory or visual hallucinations. Does not appear to be r esponding to internal stimuli. Judgment: Poor Insight: Poor Orientation: Alert and orientated 3 Cognition: Grossly normal Recent and remote memory: Intact Attention span and concentration: Intact Fund of knowledge: Adequate Mood: "Okay" Affect: Flat with little reactivity Diagnoses Unspecified psychotic disorder. Rule out schizophrenia. Assessment and Plan Unspecified psychotic disorder: Continue paliperidone 9 mg QHS and Prozac 10 mg daily. Possible augmentation of clozapine. Considering referral for long-term treatment. Disposition The patient will need a further admission as he is still fairly psychotic and unable to care for himself. He remains unkempt and unable to cooperate with even the most basic prompting to care for himself. Time Spent 15 minutes Friday Vital Signs Vital Signs Date Time Temp Pulse Resp B/P (MAP) Pulse Ox O2 Delivery O2 Flow Rate FiO2 05/31/19 06:04 97.4 67 14 117/76 (90) Current Medications Current Medications Medications (Trade) Dose Ordered Sig/Ana Route PRN Reason Start Time Stop Time Status Last Admin Dose Admin Acetaminophen (Tylenol Tab) 650 mg Q6HP PRN PO HEADACHE or DISCOMFORT 05/21/19 18:45 Al Hydrox/Mg Hydrox/Simethicone (Mylanta) 30 ml Q4HP PRN PO HEARTBURN/INDIGESTION 05/21/19 18:45 Fluoxetine HCl (PROzac) 10 mg DAILY PO 05/23/19 09:00 05/28/19 09:25 Home Med (Med Rec Complete!) ASDIRECTED XX 05/21/19 18:00 05/21/19 17:58 DC Home Med (Med Rec Complete!) ASDIRECTED XX 05/21/19 19:30 05/21/19 19:31 DC Itraconazole (Sporanox) 200 mg DAILY@0800 PO 05/22/19 10:00 05/29/19 09:59 DC 05/28/19 09:25 Lorazepam (Ativan) 1 mg STAT STAT PO 05/22/19 14:44 05/22/19 14:45 Cancel Lorazepam (Ativan) 1 mg TID PRN PO ANXIETY 05/22/19 14:45 Cancel Magnesium Hydroxide (Milk Of Magnesia) 30 ml DAILYPRN PRN PO CONSTIPATION 05/21/19 18:45 Olanzapine (ZyPREXA ZYDIS) 5 mg Q6HP PRN PO ANXIETY/AGITATION 05/21/19 18:45 Paliperidone (Invega) 3 mg BID PO 05/21/19 21:00 05/27/19 10:56 DC 05/27/19 08:59 Paliperidone (Invega) 9 mg QHS PO 05/27/19 21:00 05/28/19 21:54 Trazodone HCl (Desyrel) 50 mg QHSP PRN PO INSOMNIA 05/21/19 18:45 Allergies Coded Allergies: Penicillins (Verified Allergy, Severe, hives, 05/21/19) RAMIRO VANN DO May 31, 2019 10:19
[2019-05-31 15:37] VITALS: BP 95/56
[2019-05-31] MEDS: PALIPERIDONE 3 MG ER TAB (INVEGA) PO SCH (21:25)
[2019-06-01 06:43] VITALS: BP 121/73
[2019-06-01] MEDS: FLUoxetine 10 MG CAP PO SCH (09:15)
--- NOTE | 2019-06-01 11:55 | MHIPNPDOC ---
[facility] Progress Note Progress Note Efren Bettencourt Inpatient Progress Note Efren Bettencourt Select Gender MRN: N/A Date of : MM/DD/YYYY Date of Service: 06/01/2019 History of Present Illness The patient is a 48-year-old man who previously was admitted to the inpatient unit in 2018 and transferred last time to [place], presented initially on a pickup order as he had been living with his sister and he had become increasingly bizarre, decompensated, not taking his medications, becoming verbally and physically aggressive. He is noted to be unkempt and had been staring into the window on initial assessment in the ER, fairly psychotic. Interval History The patient is met with today, he appears to be much more amenable to meeting in the provider's office. He reportedly has been still bizarre, isolative to his room. The patient meets but does not sit down. He stares blankly, answering questions in a yes or no fashion, very concrete in his thought process. The patient reports that he does not know why he is here but does not appear to be overly upset about being here. He has been noted to be sitting in his room bizarrely staring at han, generally not interacting, has not been attending groups. Review Of Systems General: Denies fever or appetite changes Cardiovascular: Denies chest pain or palpitations GI: Denies Nausea, vomiting, or bowel changes Respiratory: Denies shortness of breath or cough Neuro: Denies dizziness, tremors Derm: Denies any rashes or pruritus : Denies any dysuria or urinary dysfunction MSK: Denies any muscle tightness or stiffness HEENT: Denies any vision changes or headaches Heme/Lymph: Denies any bruising or bleeding Endo: Denies any cold/heat intolerance or water intake changes Psychotherapy None on this visit. Vital Signs Reviewed. Mental Status Examination General: Poor hygiene Speech: Sparse Thought processes: Appears linear MSK: Smooth and coordinated gait, no signs of tremors or involuntary orofacial movements Thought content: Unclear Abstract reasoning, and computation: Impaired Description of associations: Impaired Description of abnormal or psychotic thoughts: Denies any suicidal or homicidal ideation. Denies any auditory or visual hallucinations. Does not appear to be responding to internal stimuli. Judgment: Poor Insight: Poor Orientation: Alert and orientated 3 Cognition: Grossly normal Recent and remote memory: Intact Attention span and concentration: Intact Fund of knowledge: Adequate Mood: "Okay" Affect: Flat with little reactivity Diagnoses Unspecified psychotic disorder. Rule out schizophrenia. Assessment and Plan Unspecified psychotic disorder: Continue paliperidone 9 mg QHS and Prozac 10 mg daily. Possible augmentation of clozapine. Considering referral for long-term treatment. Disposition The patient will need a further admission, as he is still fairly psychotic and unable to care for himself. He remains unkempt and unable to cooperate with even the most basic prompting to care for himself. Time Spent 15 minutes [id number]. Vital Signs Vital Signs Date Time Temp Pulse Resp B/P (MAP) Pulse Ox O2 Delivery O2 Flow Rate FiO2 06/01/19 06:43 97.1 58 14 121/73 (89) Current Medications Current Medications Medications (Trade) Dose Ordered Sig/Ana Route PRN Reason Start Time Stop Time Status Last Admin Dose Admin Acetaminophen (Tylenol Tab) 650 mg Q6HP PRN PO HEADACHE or DISCOMFORT 05/21/19 18:45 Al Hydrox/Mg Hydrox/Simethicone (Mylanta) 30 ml Q4HP PRN PO HEARTBURN/INDIGESTION 05/21/19 18:45 Fluoxetine HCl (PROzac) 10 mg DAILY PO 05/23/19 09:00 06/01/19 09:15 Home Med (Med Rec Complete!) ASDIRECTED XX 05/21/19 18:00 05/21/19 17:58 DC Home Med (Med Rec Complete!) ASDIRECTED XX 05/21/19 19:30 05/21/19 19:31 DC Itraconazole (Sporanox) 200 mg DAILY@0800 PO 05/22/19 10:00 05/29/19 09:59 DC 05/28/19 09:25 Lorazepam (Ativan) 1 mg STAT STAT PO 05/22/19 14:44 05/22/19 14:45 Cancel Lorazepam (Ativan) 1 mg TID PRN PO ANXIETY 05/22/19 14:45 Cancel Magnesium Hydroxide (Milk Of Magnesia) 30 ml DAILYPRN PRN PO CONSTIPATION 05/21/19 18:45 Olanzapine (ZyPREXA ZYDIS) 5 mg Q6HP PRN PO ANXIETY/AGITATION 05/21/19 18:45 Paliperidone (Invega) 3 mg BID PO 05/21/19 21:00 05/27/19 10:56 DC 05/27/19 08:59 Paliperidone (Invega) 9 mg QHS PO 05/27/19 21:00 05/31/19 21:25 Trazodone HCl (Desyrel) 50 mg QHSP PRN PO INSOMNIA 05/21/19 18:45 Allergies Coded Allergies: Penicillins (Verified Allergy, Severe, hives, 05/21/19) RAMIRO VANN DO Jun 01, 2019 11:55
[2019-06-01 16:03] VITALS: BP 98/60
[2019-06-01] MEDS: PALIPERIDONE 3 MG ER TAB (INVEGA) PO SCH (21:43)
[2019-06-02 06:20] VITALS: BP 131/72
[2019-06-02] MEDS: FLUoxetine 10 MG CAP PO SCH (09:00)
--- NOTE | 2019-06-02 10:57 | MHIPNPDOC ---
[facility] Progress Note Progress Note Efren Bettencourt Inpatient Progress Note Efren Bettencourt Select Gender MRN: N/A Date of : MM/DD/YYYY Date of Service: 06/02/2019 History of Present Illness The patient is a 48-year-old man who previously was admitted to the inpatient unit in 2018 and transferred last time to [place], presented initially on a pickup order as he had been living with his sister and he had become increasingly bizarre, decompensated, not taking his medications, becoming verbally and physically aggressive. He is noted to be unkempt and had been staring into the window on initial assessment in the ER, fairly psychotic. Interval History The patient is attempted to be met with today. He still remains quite psychotic, not attending groups. He was found to have been taking his medications and disposing off them in the wastebasket. The patient declined to meet with this provider as he stared into the wall near his bed. He did answer a few questions, but appears to continue to be very concrete, answering questions in only a "yes or no" fashion. The patient has not had any major behavioral problems other than the aforementioned disposal of his medications. He reports that he is "fine." Review Of Systems General: Denies fever or appetite changes Cardiovascular: Denies chest pain or palpitations GI: Denies Nausea, vomiting, or bowel changes Respiratory: Denies shortness of breath or cough Neuro: Denies dizziness, tremors Derm: Denies any rashes or pruritus : Denies any dysuria or urinary dysfunction MSK: Denies any muscle tightness or stiffness HEENT: Denies any vision changes or headaches Heme/Lymph: Denies any bruising or bleeding Endo: Denies any cold/heat intolerance or water intake changes Psychotherapy None on this visit. Vital Signs Reviewed. Mental Status Examination General: Poor hygiene Speech: Sparse Thought processes: Appears linear MSK: Smooth and coordinated gait, no signs of tremors or involuntary orofacial movements Thought content: Unclear Abstract reasoning, and computation: Impaired Description of associations: Impaired Description of abnormal or psychotic thoughts: Denies any suicidal or homicidal ideation. Denies any auditory or visual hallucinations. Does not appear to be r esponding to internal stimuli. Judgment: Poor Insight: Poor Orientation: Alert and orientated 3 Cognition: Grossly normal Recent and remote memory: Intact Attention span and concentration: Intact Fund of knowledge: Adequate Mood: "Okay" Affect: Flat with little reactivity Diagnoses Unspecified psychotic disorder. Rule out schizophrenia. Assessment and Plan Unspecified psychotic disorder: Continue paliperidone 9 mg QHS and Prozac 10 mg daily. Possible augmentation of clozapine. Considering referral for long-term treatment. his medications. If he continues to do this we'll consider alternatives such as dissolving or liquid forms, but would require changing him off of the previously well-tolerated paliperidone. Disposition The patient will need a further admission, as he is still fairly psychotic and unable to care for himself. He remains unkempt and unable to cooperate with even the most basic prompting to care for himself. Time Spent 15 minutes. Vital Signs Vital Signs Date Time Temp Pulse Resp B/P (MAP) Pulse Ox O2 Delivery O2 Flow Rate FiO2 06/02/19 08:19 Room Air 06/02/19 06:20 97.4 61 14 131/72 (91) Current Medications Current Medications Medications (Trade) Dose Ordered Sig/Ana Route PRN Reason Start Time Stop Time Status Last Admin Dose Admin Acetaminophen (Tylenol Tab) 650 mg Q6HP PRN PO HEADACHE or DISCOMFORT 05/21/19 18:45 Al Hydrox/Mg Hydrox/Simethicone (Mylanta) 30 ml Q4HP PRN PO HEARTBURN/INDIGESTION 05/21/19 18:45 Fluoxetine HCl (PROzac) 10 mg DAILY PO 05/23/19 09:00 06/01/19 09:15 Home Med (Med Rec Complete!) ASDIRECTED XX 05/21/19 18:00 05/21/19 17:58 DC Home Med (Med Rec Complete!) ASDIRECTED XX 05/21/19 19:30 05/21/19 19:31 DC Itraconazole (Sporanox) 200 mg DAILY@0800 PO 05/22/19 10:00 05/29/19 09:59 DC 05/28/19 09:25 Lorazepam (Ativan) 1 mg STAT STAT PO 05/22/19 14:44 05/22/19 14:45 Cancel Lorazepam (Ativan) 1 mg TID PRN PO ANXIETY 05/22/19 14:45 Cancel Magnesium Hydroxide (Milk Of Magnesia) 30 ml DAILYPRN PRN PO CONSTIPATION 05/21/19 18:45 Olanzapine (ZyPREXA ZYDIS) 5 mg Q6HP PRN PO ANXIETY/AGITATION 05/21/19 18:45 Paliperidone (Invega) 3 mg BID PO 05/21/19 21:00 05/27/19 10:56 DC 05/27/19 08:59 Paliperidone (Invega) 9 mg QHS PO 05/27/19 21:00 06/01/19 21:43 Trazodone HCl (Desyrel) 50 mg QHSP PRN PO INSOMNIA 05/21/19 18:45 Allergies Coded Allergies: Penicillins (Verified Allergy, Severe, hives, 05/21/19) RAMIRO VANN DO Jun 02, 2019 10:57
[2019-06-02 16:09] VITALS: BP 103/66
[2019-06-02] MEDS: PALIPERIDONE 3 MG ER TAB (INVEGA) PO SCH (21:00)
[2019-06-03 06:00] VITALS: BP 107/63
[2019-06-03] MEDS: FLUoxetine 10 MG CAP PO SCH (09:00)
--- NOTE | 2019-06-03 11:44 | MHIPNPDOC ---
[facility] Progress Note Progress Note Efren Bettencourt Inpatient Progress Note Efren Bettencourt Select Gender MRN: N/A Date of : MM/DD/YYYY Date of Service: 06/03/2019 History of Present Illness The patient is a 48-year-old man who previously was admitted to the inpatient unit in 2018 and transferred last time to [place], presented initially on a pickup order as he had been living with his sister and he had become increasingly bizarre, decompensated, not taking his medications, becoming verbally and physically aggressive. He is noted to be unkempt and had been staring into the window on initial assessment in the ER, fairly psychotic. Interval History The patient is met with today. He refuses to meet, instead stares off into the distance. He answers only a few questions before refusing to answer any more questions. He is laying in his bed. He generally only comes out to eat. He still remains difficult, as he has been starting to refuse his medications and has been noted to cheek them. The patient has been still bizarre, unable to care for himself, and takes significant prompting for basic hygiene or other activities of daily living. No major behavioral problems overnight. Review Of Systems Patient declines to answer. Psychotherapy None on this visit. Vital Signs Reviewed. Mental Status Examination General: Poor hygiene Speech: Sparse Thought processes: Appears linear MSK: Smooth and coordinated gait, no signs of tremors or involuntary orofacial movements Thought content: Unclear Abstract reasoning, and computation: Impaired Description of associations: Impaired Description of abnormal or psychotic thoughts: Denies any suicidal or homicidal ideation. Denies any auditory or visual hallucinations. Does not appear to be responding to internal stimuli. Judgment: Poor Insight: Poor Orientation: Alert and orientated 3 Cognition: Grossly normal Recent and remote memory: Intact Attention span and concentration: Intact Fund of knowledge: Adequate Mood: "Okay" Affect: Flat with little reactivity Diagnoses Unspecified psychotic disorder. Rule out schizophrenia. Assessment and Plan Unspecified psychotic disorder: Discontinue paliperidone at this time. Will start Zyprexa Zydis 5 mg BID. Will likely need treatment over objection. Will consider discontinuing Prozac, as likely unhelpful. Disposition The patient will need a further admission, as he is still fairly psychotic and unable to care for himself. He remains unkempt and unable to cooperate with even the most basic prompting to care for himself. Time Spent 10 minutes [id number]. Vital Signs Vital Signs Date Time Temp Pulse Resp B/P (MAP) Pulse Ox O2 Delivery O2 Flow Rate FiO2 06/03/19 06:00 98.4 65 14 107/63 (78) 06/02/19 08:19 Room Air Current Medications Current Medications Medications (Trade) Dose Ordered Sig/Ana Route PRN Reason Start Time Stop Time Status Last Admin Dose Admin Acetaminophen (Tylenol Tab) 650 mg Q6HP PRN PO HEADACHE or DISCOMFORT 05/21/19 18:45 Al Hydrox/Mg Hydrox/Simethicone (Mylanta) 30 ml Q4HP PRN PO HEARTBURN/INDIGESTION 05/21/19 18:45 Fluoxetine HCl (PROzac) 10 mg DAILY PO 05/23/19 09:00 06/01/19 09:15 Home Med (Med Rec Complete!) ASDIRECTED XX 05/21/19 18:00 05/21/19 17:58 DC Home Med (Med Rec Complete!) ASDIRECTED XX 05/21/19 19:30 05/21/19 19:31 DC Itraconazole (Sporanox) 200 mg DAILY@0800 PO 05/22/19 10:00 05/29/19 09:59 DC 05/28/19 09:25 Lorazepam (Ativan) 1 mg STAT STAT PO 05/22/19 14:44 05/22/19 14:45 Cancel Lorazepam (Ativan) 1 mg TID PRN PO ANXIETY 05/22/19 14:45 Cancel Magnesium Hydroxide (Milk Of Magnesia) 30 ml DAILYPRN PRN PO CONSTIPATION 05/21/19 18:45 Olanzapine (ZyPREXA ZYDIS) 5 mg Q6HP PRN PO ANXIETY/AGITATION 05/21/19 18:45 Paliperidone (Invega) 3 mg BID PO 05/21/19 21:00 05/27/19 10:56 DC 05/27/19 08:59 Paliperidone (Invega) 9 mg QHS PO 05/27/19 21:00 06/01/19 21:43 Trazodone HCl (Desyrel) 50 mg QHSP PRN PO INSOMNIA 05/21/19 18:45 Allergies Coded Allergies: Penicillins (Verified Allergy, Severe, hives, 05/21/19) RAMIRO VANN DO Jun 03, 2019 11:44
[2019-06-03 17:40] VITALS: BP 110/66
[2019-06-03] MEDS: OLANZapine ORAL DISINTEGRATING TAB 5MG PO SCH (21:00)
[2019-06-04 06:10] VITALS: BP 120/82
[2019-06-04] MEDS: OLANZapine ORAL DISINTEGRATING TAB 5MG PO SCH ×2 (09:00→20:51)
[2019-06-04] MEDS: FLUoxetine 10 MG CAP PO SCH (09:00)
--- NOTE | 2019-06-04 09:52 | MHIPNPDOC ---
[facility] Progress Note Progress Note Efren Bettencourt Inpatient Progress Note Efren Bettencourt Select Gender MRN: N/A Date of : MM/DD/YYYY Date of Service: 06/04/2019 History of Present Illness The patient is a 48-year-old man who previously was admitted to the inpatient unit in 2018 and transferred last time to [place], presented initially on a pickup order as he had been living with his sister and he had become increasingly bizarre, decompensated, not taking his medications, becoming verbally and physically aggressive. He is noted to be unkempt and had been staring into the window on initial assessment in the ER, fairly psychotic. Interval History The patient is attempted to be met with today. He still reports that he does not want to take the medications, but cannot give a reason why. He reports it makes him feel "different." He lays on his bed, refusing to get out of his bed to meet with this provider. He answers some questions and otherwise stares into the wall. He describes that he feels "fine," but has refused transfer to [place]. Review Of Systems General: Denies fever or appetite changes Cardiovascular: Denies chest pain or palpitations GI: Denies Nausea, vomiting, or bowel changes Respiratory: Denies shortness of breath or cough Neuro: Denies dizziness, tremors Derm: Denies any rashes or pruritus : Denies any dysuria or sexual dysfunction MSK: Denies any muscle tightness or stiffness HEENT: Denies any vision changes or headaches Heme/Lymph: Denies any bruising or bleeding Endo: Denies any cold/heat intolerance or water intake changes Psychotherapy None on this visit. Vital Signs Reviewed. Mental Status Examination General: Well dressed with good hygiene Speech: Spontaneous and fluid Thought processes: Linear and logical MSK: Smooth and coordinated gait, no signs of tremors or involuntary orofacial movements Thought content: Future orientated Abstract reasoning, and computation: Intact Description of associations: Intact Description of abnormal or psychotic thoughts: Denies any suicidal or homicidal ideation. Denies any auditory or visual hallucinations. Does not appear to be responding to internal stimuli. Does not appear to be endorsing any bizarre or paranoid ideation. Judgment: fair Insight: fair Orientation: Alert and orientated 3 Cognition: Grossly normal Recent and remote memory: Intact Attention span and concentration: Intact Fund of knowledge: Adequate Mood: "okay" Affect: Euthymic with a full range Diagnoses Unspecified psychotic disorder. Rule out schizophrenia. Assessment and Plan Unspecified psychotic disorder: Discontinue paliperidone at this time. Will start Zyprexa Zydis 5 mg BID. Will likely need treatment over objection. Will consider discontinuing Prozac, as likely unhelpful. Disposition The patient will need a further admission, as he is still fairly psychotic and unable to care for himself. He remains unkempt and unable to cooperate with even the most basic prompting to care for himself. Time Spent 10 minutes [id number]. Vital Signs Vital Signs Date Time Temp Pulse Resp B/P (MAP) Pulse Ox O2 Delivery O2 Flow Rate FiO2 06/04/19 06:10 97.4 68 14 120/82 (95) Room Air Current Medications Current Medications Medications (Trade) Dose Ordered Sig/Ana Route PRN Reason Start Time Stop Time Status Last Admin Dose Admin Acetaminophen (Tylenol Tab) 650 mg Q6HP PRN PO HEADACHE or DISCOMFORT 05/21/19 18:45 Al Hydrox/Mg Hydrox/Simethicone (Mylanta) 30 ml Q4HP PRN PO HEARTBURN/INDIGESTION 05/21/19 18:45 Fluoxetine HCl (PROzac) 10 mg DAILY PO 05/23/19 09:00 06/01/19 09:15 Home Med (Med Rec Complete!) ASDIRECTED XX 05/21/19 18:00 05/21/19 17:58 DC Home Med (Med Rec Complete!) ASDIRECTED XX 05/21/19 19:30 05/21/19 19:31 DC Itraconazole (Sporanox) 200 mg DAILY@0800 PO 05/22/19 10:00 05/29/19 09:59 DC 05/28/19 09:25 Lorazepam (Ativan) 1 mg STAT STAT PO 05/22/19 14:44 05/22/19 14:45 Cancel Lorazepam (Ativan) 1 mg TID PRN PO ANXIETY 05/22/19 14:45 Cancel Magnesium Hydroxide (Milk Of Magnesia) 30 ml DAILYPRN PRN PO CONSTIPATION 05/21/19 18:45 Olanzapine (ZyPREXA ZYDIS) 5 mg BID PO 06/03/19 21:00 Olanzapine (ZyPREXA ZYDIS) 5 mg Q6HP PRN PO ANXIETY/AGITATION 05/21/19 18:45 Paliperidone (Invega) 3 mg BID PO 05/21/19 21:00 05/27/19 10:56 DC 05/27/19 08:59 Paliperidone (Invega) 9 mg QHS PO 05/27/19 21:00 06/03/19 19:34 DC 06/01/19 21:43 Trazodone HCl (Desyrel) 50 mg QHSP PRN PO INSOMNIA 05/21/19 18:45 Allergies Coded Allergies: Penicillins (Verified Allergy, Severe, hives, 05/21/19) RAMIRO VANN DO Jun 04, 2019 09:52
[2019-06-04 16:39] VITALS: BP 106/79
[2019-06-05 06:49] VITALS: BP 122/75
[2019-06-05] MEDS: FLUoxetine 10 MG CAP PO SCH (08:47)
[2019-06-05] MEDS: OLANZapine ORAL DISINTEGRATING TAB 5MG PO SCH ×2 (08:48→21:00)
[2019-06-05 16:28] VITALS: BP 98/58
[2019-06-06 06:35] VITALS: BP 122/81
[2019-06-06] MEDS: OLANZapine ORAL DISINTEGRATING TAB 5MG PO SCH ×2 (09:00→20:49)
[2019-06-06] MEDS: FLUoxetine 10 MG CAP PO SCH (09:00)
[2019-06-06 16:36] VITALS: BP 100/58
[2019-06-07 06:38] VITALS: BP 113/66
[2019-06-07] MEDS: FLUoxetine 10 MG CAP PO SCH (08:35)
[2019-06-07] MEDS: OLANZapine ORAL DISINTEGRATING TAB 5MG PO SCH ×2 (08:35→20:47)
--- NOTE | 2019-06-07 09:51 | MHIPNPDOC ---
[facility] Progress Note Progress Note Efren Bettencourt Inpatient Progress Note Efren Bettencourt Select Gender MRN: N/A Date of : MM/DD/YYYY Date of Service: 06/07/2019 History of Present Illness The patient is a 48-year-old man who previously was admitted to the inpatient unit in 2018 and transferred last time to [place], presented initially on a pickup order as he had been living with his sister and he had become increasingly bizarre, decompensated, not taking his medications, becoming verbally and physically aggressive. He is noted to be unkempt and had been staring into the window on initial assessment in the ER, fairly psychotic. Interval History The patient is met with today with his party planner. The patient has not been taking medications over the weekend, he has refused. He stays in his room, he is isolative and does not engage with nursing staff for his 1:1 or attend groups. When he is met with, he is still fairly bizarre, staring, without any coherent answers to any questions posed to him. He has not had any major behavioral problems or has lashed out at anyone, however he still remains fairly bizarre. He is unable to describe any symptoms and does not answer direct questions when posed today. We informed him that he would likely need treatment over objection if he does not participate in treatment, he had no response. Review Of Systems Patient declines to respond. Psychotherapy None on this visit. Vital Signs Reviewed. Mental Status Examination General: Poor hygiene Speech: Sparse Thought processes: Appears linear MSK: Smooth and coordinated gait, no signs of tremors or involuntary orofacial movements Thought content: Unclear Abstract reasoning, and computation: Impaired Description of associations: Impaired Description of abnormal or psychotic thoughts: Unknown. Judgment: Poor Insight: Poor Orientation: Alert and orientated 3 Cognition: Grossly normal Recent and remote memory: Intact Attention span and concentration: Intact Fund of knowledge: Adequate Mood: "..." Affect: Flat with little reactivity Diagnoses Unspecified psychotic disorder. Rule out schizophrenia. Assessment and Plan Unspecified psychotic disorder: Continue to offer Zyprexa Zydis 5 mg BID. Will pursue treatment over objection. Continue Prozac as possibly helpful once he resumes taking medications. Disposition The patient will need a further admission, as he is still fairly psychotic and unable to care for himself. He remains unkempt and unable to cooperate with even the most basic prompting to care for himself. Time Spent 10 minutes [id number], 30 minutes coordinating care. Vital Signs Vital Signs Date Time Temp Pulse Resp B/P (MAP) Pulse Ox O2 Delivery O2 Flow Rate FiO2 06/07/19 06:38 97.0 59 16 113/66 (82) 06/06/19 06:35 Room Air Current Medications Current Medications Medications (Trade) Dose Ordered Sig/Ana Route PRN Reason Start Time Stop Time Status Last Admin Dose Admin Acetaminophen (Tylenol Tab) 650 mg Q6HP PRN PO HEADACHE or DISCOMFORT 05/21/19 18:45 Al Hydrox/Mg Hydrox/Simethicone (Mylanta) 30 ml Q4HP PRN PO HEARTBURN/INDIGESTION 05/21/19 18:45 Fluoxetine HCl (PROzac) 10 mg DAILY PO 05/23/19 09:00 06/01/19 09:15 Home Med (Med Rec Complete!) ASDIRECTED XX 05/21/19 18:00 05/21/19 17:58 DC Home Med (Med Rec Complete!) ASDIRECTED XX 05/21/19 19:30 05/21/19 19:31 DC Itraconazole (Sporanox) 200 mg DAILY@0800 PO 05/22/19 10:00 05/29/19 09:59 DC 05/28/19 09:25 Lorazepam (Ativan) 1 mg STAT STAT PO 05/22/19 14:44 05/22/19 14:45 Cancel Lorazepam (Ativan) 1 mg TID PRN PO ANXIETY 05/22/19 14:45 Cancel Magnesium Hydroxide (Milk Of Magnesia) 30 ml DAILYPRN PRN PO CONSTIPATION 05/21/19 18:45 Olanzapine (ZyPREXA ZYDIS) 5 mg BID PO 06/03/19 21:00 Olanzapine (ZyPREXA ZYDIS) 5 mg Q6HP PRN PO ANXIETY/AGITATION 05/21/19 18:45 Paliperidone (Invega) 3 mg BID PO 05/21/19 21:00 05/27/19 10:56 DC 05/27/19 08:59 Paliperidone (Invega) 9 mg QHS PO 05/27/19 21:00 06/03/19 19:34 DC 06/01/19 21:43 Trazodone HCl (Desyrel) 50 mg QHSP PRN PO INSOMNIA 05/21/19 18:45 Allergies Coded Allergies: Penicillins (Verified Allergy, Severe, hives, 05/21/19) RAMIRO VANN DO Jun 07, 2019 09:51
[2019-06-07 15:28] VITALS: BP 105/66
[2019-06-08 06:53] VITALS: BP 119/74
[2019-06-08] MEDS: FLUoxetine 10 MG CAP PO SCH (08:36)
[2019-06-08] MEDS: OLANZapine ORAL DISINTEGRATING TAB 5MG PO SCH ×2 (08:37→21:00)
--- NOTE | 2019-06-08 09:34 | MHIPNPDOC ---
[facility] Progress Note Progress Note Efren Bettencourt Inpatient Progress Note Efren Bettencourt Select Gender MRN: N/A Date of : MM/DD/YYYY Date of Service: 06/08/2019 History of Present Illness The patient is a 48-year-old man who previously was admitted to the inpatient unit in 2018 and transferred last time to [place], presented initially on a pickup order as he had been living with his sister and he had become increasingly bizarre, decompensated, not taking his medications, becoming verbally and physically aggressive. He is noted to be unkempt and had been staring into the window on initial assessment in the ER, fairly psychotic. Interval History The patient is met with today. He refuses to answer the majority of the questions posed to him, especially when speaking to him about the potential for a court hearing related to treatment over objection as he has made poor progress. He continues to refuse the medication, offering no reason as to why he refuses it. He continues to remain in bed without any engagement and appears generally lifeless without prompting he would likely starve to . The patient appears generally apathetic per staff report for the majority of any interventions, although has had no major behavioral problems overnight. Review Of Systems Patient declines to respond. Psychotherapy None on this visit. Vital Signs Reviewed. Mental Status Examination General: Poor hygiene Speech: Sparse Thought processes: Appears linear MSK: Smooth and coordinated gait, no signs of tremors or involuntary orofacial movements Thought content: Unclear Abstract reasoning, and computation: Impaired Description of associations: Impaired Description of abnormal or psychotic thoughts: Unknown. Judgment: Poor Insight: Poor Orientation: Alert and orientated 3 Cognition: Grossly normal Recent and remote memory: Intact Attention span and concentration: Intact Fund of knowledge: Adequate Mood: "..." Affect: Flat with little reactivity Diagnoses Schizophrenia. Assessment and Plan Unspecified psychotic disorder: Continue to offer Zyprexa Zydis 5 mg BID. Will pursue treatment over objection. Continue Prozac as possibly helpful once he resumes taking medications. Disposition Treatment over objection being pursued due to severe impairment in self-care putting the patient in danger of . Time Spent 10 minutes [id number]. Vital Signs Vital Signs Date Time Temp Pulse Resp B/P (MAP) Pulse Ox O2 Delivery O2 Flow Rate FiO2 06/08/19 06:53 96.8 58 14 119/74 (89) 10/20/19 06:35 Room Air Current Medications Current Medications Medications (Trade) Dose Ordered Sig/Ana Route PRN Reason Start Time Stop Time Status Last Admin Dose Admin Acetaminophen (Tylenol Tab) 650 mg Q6HP PRN PO HEADACHE or DISCOMFORT 05/21/19 18:45 Al Hydrox/Mg Hydrox/Simethicone (Mylanta) 30 ml Q4HP PRN PO HEARTBURN/INDIGESTION 05/21/19 18:45 Fluoxetine HCl (PROzac) 10 mg DAILY PO 05/23/19 09:00 06/01/19 09:15 Home Med (Med Rec Complete!) ASDIRECTED XX 05/21/19 18:00 05/21/19 17:58 DC Home Med (Med Rec Complete!) ASDIRECTED XX 05/21/19 19:30 05/21/19 19:31 DC Itraconazole (Sporanox) 200 mg DAILY@0800 PO 05/22/19 10:00 05/29/19 09:59 DC 05/28/19 09:25 Lorazepam (Ativan) 1 mg STAT STAT PO 05/22/19 14:44 05/22/19 14:45 Cancel Lorazepam (Ativan) 1 mg TID PRN PO ANXIETY 05/22/19 14:45 Cancel Magnesium Hydroxide (Milk Of Magnesia) 30 ml DAILYPRN PRN PO CONSTIPATION 05/21/19 18:45 Olanzapine (ZyPREXA ZYDIS) 5 mg BID PO 06/03/19 21:00 Olanzapine (ZyPREXA ZYDIS) 5 mg Q6HP PRN PO ANXIETY/AGITATION 05/21/19 18:45 Paliperidone (Invega) 3 mg BID PO 05/21/19 21:00 05/27/19 10:56 DC 05/27/19 08:59 Paliperidone (Invega) 9 mg QHS PO 05/27/19 21:00 06/03/19 19:34 DC 06/01/19 21:43 Trazodone HCl (Desyrel) 50 mg QHSP PRN PO INSOMNIA 05/21/19 18:45 Allergies Coded Allergies: Penicillins (Verified Allergy, Severe, hives, 05/21/19) RAMIRO VANN DO Jun 08, 2019 09:34
[2019-06-08 18:00] VITALS: BP 110/59
[2019-06-09 07:31] VITALS: BP 113/77
[2019-06-09] MEDS: FLUoxetine 10 MG CAP PO SCH (09:00)
[2019-06-09] MEDS: OLANZapine ORAL DISINTEGRATING TAB 5MG PO SCH ×2 (09:00→21:00)
--- NOTE | 2019-06-09 10:07 | MHIPNPDOC ---
[facility] Progress Note Progress Note Inpatient Progress Note Efren Bettencourt MRN: N/A Date of : N/A Date of Service: 06/09/2019 History of Present Illness The patient is a 48-year-old man who previously was admitted to the inpatient unit in 2018 and transferred last time to [place], presented initially on a pickup order as he had been living with his sister and he had become increasingly bizarre, decompensated, not taking his medications, becoming verbally and physically aggressive. He is noted to be unkempt and had been staring into the window on initial assessment in the ER, fairly psychotic. Interval History The patient was attempted to be met with, however, he was laying in bed. He has not gotten out of bed for anything other than food. He refuses to meet, refusing to answer any of my questions. Staff note that he does not bathe or engage in any hygiene behavior. A TOO is being pursued at this time due to the patient's significant impairment. He does not attend to ADLs and appear still quite psychotic. Other patients have been reporting that he stares at them in a bizarre away. No major behavioral problems overnight. Review Of Systems Refuses to answer. Psychotherapy None on this visit. Vital Signs Reviewed. Mental Status Examination General: Poor hygiene Speech: Sparse Thought processes: Appears linear MSK: Smooth and coordinated gait, no signs of tremors or involuntary orofacial movements Thought content: Unclear Abstract reasoning, and computation: Impaired Description of associations: Impaired Description of abnormal or psychotic thoughts: Unknown. Judgment: Poor Insight: Poor Orientation: Alert and orientated 3 Cognition: Grossly normal Recent and remote memory: Intact Attention span and concentration: Intact Fund of knowledge: Adequate Mood: "..." Affect: Flat with little reactivity Diagnoses Schizophrenia. Assessment and Plan Unspecified psychotic disorder: Continue to offer Zyprexa Zydis 5 mg BID. Will pursue treatment over objection. Continue Prozac as possibly helpful once he resumes taking medications. Disposition Treatment over objection being pursued due to severe impairment in self-care putting the patient in danger of . Time Spent 10 minutes [id number]. Friday Vital Signs Vital Signs Date Time Temp Pulse Resp B/P (MAP) Pulse Ox O2 Delivery O2 Flow Rate FiO2 06/09/19 07:49 Room Air 06/09/19 07:31 96.8 66 14 113/77 (89) Current Medications Current Medications Medications (Trade) Dose Ordered Sig/Ana Route PRN Reason Start Time Stop Time Status Last Admin Dose Admin Acetaminophen (Tylenol Tab) 650 mg Q6HP PRN PO HEADACHE or DISCOMFORT 05/21/19 18:45 Al Hydrox/Mg Hydrox/Simethicone (Mylanta) 30 ml Q4HP PRN PO HEARTBURN/INDIGESTION 05/21/19 18:45 Fluoxetine HCl (PROzac) 10 mg DAILY PO 05/23/19 09:00 06/01/19 09:15 Home Med (Med Rec Complete!) ASDIRECTED XX 05/21/19 18:00 05/21/19 17:58 DC Home Med (Med Rec Complete!) ASDIRECTED XX 05/21/19 19:30 05/21/19 19:31 DC Itraconazole (Sporanox) 200 mg DAILY@0800 PO 05/22/19 10:00 05/29/19 09:59 DC 05/28/19 09:25 Lorazepam (Ativan) 1 mg STAT STAT PO 05/22/19 14:44 05/22/19 14:45 Cancel Lorazepam (Ativan) 1 mg TID PRN PO ANXIETY 05/22/19 14:45 Cancel Magnesium Hydroxide (Milk Of Magnesia) 30 ml DAILYPRN PRN PO CONSTIPATION 05/21/19 18:45 Olanzapine (ZyPREXA ZYDIS) 5 mg BID PO 06/03/19 21:00 Olanzapine (ZyPREXA ZYDIS) 5 mg Q6HP PRN PO ANXIETY/AGITATION 05/21/19 18:45 Paliperidone (Invega) 3 mg BID PO 05/21/19 21:00 05/27/19 10:56 DC 05/27/19 08:59 Paliperidone (Invega) 9 mg QHS PO 05/27/19 21:00 06/03/19 19:34 DC 06/01/19 21:43 Trazodone HCl (Desyrel) 50 mg QHSP PRN PO INSOMNIA 05/21/19 18:45 Allergies Coded Allergies: Penicillins (Verified Allergy, Severe, hives, 05/21/19) RAMIRO VANN DO Jun 09, 2019 10:07
[2019-06-09 18:01] VITALS: BP 101/60
[2019-06-10 06:33] VITALS: BP 110/68
--- NOTE | 2019-06-10 07:54 | MHIPNPDOC ---
[facility] Progress Note Progress Note TREATMENT OVER OBJECTION DATE OF ADMISSION: 05/21/19 DATE OF SERVICE: 06/10/19 ATTENDING DOCTOR: Ramiro Sam DO FAMILY CONTACTS: Sister, AP worker SECTION I: CLINICAL SUMMARY: The patient a 48-year-old man with a history of schizophrenia presents after engaging in dangerous and aggressive behavior after leaving a long-term psychiatric care facility, he had refused to follow up with any outpatient treatment and decompensated becoming bizarre and had stop showering unable to engage in even the most basic everyday care for himself. The patient presented to [facility] on a pickup order, where he was unable to engage in a meaningful interview to psychotic in order to understand. He has been refusing medications, at first he appeared to be taking medications but had in actuality been collecting them and throwing them into the garbage until we found them when he confronted him he refused to take the medication that was given to him that would not allow him to do this. DIAGNOSIS: Schizophrenia SECTION II: Proposed Treatment. 1. Course of treatment recommended by treating physician: To prescribe either an antipsychotic or mood stabilizer or both - Invega 3 mg twice a day with the option of increasing this dose progressively up to 6 or 9 mg twice a day as tolerated for signs and symptoms of psychosis. Initiate Invega Sustenna 234mg loading dose IM injection and then, pending medication tolerance, Invega Sustenna 156mg maintenance dose IM injection for medication compliance 3 days later. If the patient refuses treatment by mouth, the patient should receive Zyprexa IM 10 mg at various doses up to a total of 30 mg per day. The patient will then be maintained on Invega Sustenna monthly injection with doses up to 234 mg IM every month once he is discharged - Cogentin 0.5 to 1mg daily up to a total of 4 mg per day in divided doses if Parkinsonian symptoms are evident. 2. Reasonable alternatives if any are: Haldol 5 to 10mg IM and Ativan 2mg IM in the event patient becomes a danger to herself or others during her treatment. The patient requires an antipsychotic medication for the treatment of her bipolar condition. 3. Reasonable alternatives if any are: Thorazine 50-100mg IM and Ativan 2mg IM in the event patient becomes a danger to herself or others during her treatment. The patient requires an antipsychotic medication for the treatment of her bipolar condition. Has the patient been tried on the proposed treatment: The patient has been on trials of invega, olanzapine with good results while taking them 4. Anticipated benefits to proposed treatment: This treatment will allow the patient to gain control over symptoms so that they can have success as an outp atient 5. Reasonable foreseeable adverse side effects: Parkinsonian symptoms, weight gain, sedation, side effects of neuroleptics. In rare cases, neuroleptic malignant syndrome and tardive dyskinesia may develop. 6. Prognosis without treatment:The patient's prognosis of the treatment is very grim, she will likely continue to pose a danger to himself or others SECTION III: Patient's capacity. 1. Explained to the patient: A. Condition: No B. Proposed treatment: No C. Anticipated benefits of treatment: No D. Risks of adverse side effects of treatment: No E. Availability of other treatments and comparison of benefits and risks: No F. Risk of no treatment: No The patient was attempted to be spoken to, however he stares blankly not engagin g in any conversation, even when explain the danger of a situation the need for medications he has "no reason" to not take medications but appears to have extreme ambivalence 2. State the nature of the patient's objections to treatment: has no reason (a ppears due to extreme loss of insight) 3. The patient's capacity: Lacks any capacity to understand him condition or the danger that he places herself in by her behavior or lack of compliance with treatment. SECTION IV: LIKELIHOOD FOR DANGEROUS BEHAVIOR: 1. The patient is believed to be dangerous to others at the hospital unless treated: Yes. 2. Is the patient believed to be likely dangerous to self if not treated: Yes. SECTION V: ANY OTHER INFORMATION:N/A Vital Signs Vital Signs Date Time Temp Pulse Resp B/P (MAP) Pulse Ox O2 Delivery O2 Flow Rate FiO2 06/10/19 06:33 97.5 60 16 110/68 (82) 06/09/19 07:49 Room Air Current Medications Current Medications Medications (Trade) Dose Ordered Sig/Ana Route PRN Reason Start Time Stop Time Status Last Admin Dose Admin Acetaminophen (Tylenol Tab) 650 mg Q6HP PRN PO HEADACHE or DISCOMFORT 05/21/19 18:45 Al Hydrox/Mg Hydrox/Simethicone (Mylanta) 30 ml Q4HP PRN PO HEARTBURN/INDIGESTION 05/21/19 18:45 Fluoxetine HCl (PROzac) 10 mg DAILY PO 05/23/19 09:00 06/01/19 09:15 Home Med (Med Rec Complete!) ASDIRECTED XX 05/21/19 18:00 05/21/19 17:58 DC Home Med (Med Rec Complete!) ASDIRECTED XX 05/21/19 19:30 05/21/19 19:31 DC Itraconazole (Sporanox) 200 mg DAILY@0800 PO 05/22/19 10:00 05/29/19 09:59 DC 05/28/19 09:25 Lorazepam (Ativan) 1 mg STAT STAT PO 05/22/19 14:44 05/22/19 14:45 Cancel Lorazepam (Ativan) 1 mg TID PRN PO ANXIETY 05/22/19 14:45 Cancel Magnesium Hydroxide (Milk Of Magnesia) 30 ml DAILYPRN PRN PO CONSTIPATION 05/21/19 18:45 Olanzapine (ZyPREXA ZYDIS) 5 mg BID PO 06/03/19 21:00 Olanzapine (ZyPREXA ZYDIS) 5 mg Q6HP PRN PO ANXIETY/AGITATION 05/21/19 18:45 Paliperidone (Invega) 3 mg BID PO 05/21/19 21:00 05/27/19 10:56 DC 05/27/19 08:59 Paliperidone (Invega) 9 mg QHS PO 05/27/19 21:00 06/03/19 19:34 DC 06/01/19 21:43 Trazodone HCl (Desyrel) 50 mg QHSP PRN PO INSOMNIA 05/21/19 18:45 Allergies Coded Allergies: Penicillins (Verified Allergy, Severe, hives, 05/21/19) RAMIRO SAM DO Jun 10, 2019 07:54 AGNIESZKA PAREDES DO Jun 15, 2019 10:58
[2019-06-10] MEDS: FLUoxetine 10 MG CAP PO SCH (09:00)
[2019-06-10] MEDS: OLANZapine ORAL DISINTEGRATING TAB 5MG PO SCH ×2 (09:00→20:25)
--- NOTE | 2019-06-10 10:20 | MHIPNPDOC ---
[facility] Progress Note Progress Note Efren Bettencourt Inpatient Progress Note Efren Bettencourt Select Gender MRN: N/A Date of : MM/DD/YYYY Date of Service: 06/10/2019 History of Present Illness The patient is a 48-year-old man who previously was admitted to the inpatient unit in 2018 and transferred last time to [place], presented initially on a pickup order as he had been living with his sister and he had become increasingly bizarre, decompensated, not taking his medications, becoming verbally and physically aggressive. He is noted to be unkempt and had been staring into the window on initial assessment in the ER, fairly psychotic. Interval History The patient is met with today. He refuses to discusses anything and walks away from this provider. He has been fairly bizarre, has not been showering and has been urinating in the hallways. The patient's mental status continues to decline. He refuses to take any medications and does not respond to any redirection. He does walk bizarrely, waving at various female patients and he has notably been difficult to engage in even the most basic hygiene. After room lockout today in order to engage the patient in more treatment, he walks around aimlessly. He's had no major episodes of agitation overnight. Review Of Systems Declines to answer. Psychotherapy None on this visit. Vital Signs Reviewed. Mental Status Examination General: Poor hygiene Speech: Sparse Thought processes: Appears linear MSK: Smooth and coordinated gait, no signs of tremors or involuntary orofacial movements Thought content: Unclear Abstract reasoning, and computation: Impaired Description of associations: Impaired Description of abnormal or psychotic thoughts: Unknown. Judgment: Poor Insight: Poor Orientation: Alert and orientated 3 Cognition: Grossly normal Recent and remote memory: Intact Attention span and concentration: Intact Fund of knowledge: Adequate Mood: "..." Affect: Flat with little reactivity Diagnoses Schizophrenia. Assessment and Plan Unspecified psychotic disorder: Continue to offer Zyprexa Zydis 5 mg BID. Will pursue treatment over objection. Continue Prozac as possibly helpful once he resumes taking medications. Disposition Treatment over objection being pursued due to severe impairment in self-care putting the patient in danger of . Time Spent 10 minutes [id number]. Vital Signs Vital Signs Date Time Temp Pulse Resp B/P (MAP) Pulse Ox O2 Delivery O2 Flow Rate FiO2 10/24/19 06:33 97.5 60 16 110/68 (82) 06/09/19 07:49 Room Air Current Medications Current Medications Medications (Trade) Dose Ordered Sig/Ana Route PRN Reason Start Time Stop Time Status Last Admin Dose Admin Acetaminophen (Tylenol Tab) 650 mg Q6HP PRN PO HEADACHE or DISCOMFORT 05/21/19 18:45 Al Hydrox/Mg Hydrox/Simethicone (Mylanta) 30 ml Q4HP PRN PO HEARTBURN/INDIGESTION 05/21/19 18:45 Fluoxetine HCl (PROzac) 10 mg DAILY PO 05/23/19 09:00 06/01/19 09:15 Home Med (Med Rec Complete!) ASDIRECTED XX 05/21/19 18:00 05/21/19 17:58 DC Home Med (Med Rec Complete!) ASDIRECTED XX 05/21/19 19:30 05/21/19 19:31 DC Itraconazole (Sporanox) 200 mg DAILY@0800 PO 05/22/19 10:00 05/29/19 09:59 DC 05/28/19 09:25 Lorazepam (Ativan) 1 mg STAT STAT PO 05/22/19 14:44 05/22/19 14:45 Cancel Lorazepam (Ativan) 1 mg TID PRN PO ANXIETY 05/22/19 14:45 Cancel Magnesium Hydroxide (Milk Of Magnesia) 30 ml DAILYPRN PRN PO CONSTIPATION 05/21/19 18:45 Olanzapine (ZyPREXA ZYDIS) 5 mg BID PO 06/03/19 21:00 Olanzapine (ZyPREXA ZYDIS) 5 mg Q6HP PRN PO ANXIETY/AGITATION 05/21/19 18:45 Paliperidone (Invega) 3 mg BID PO 05/21/19 21:00 05/27/19 10:56 DC 05/27/19 08:59 Paliperidone (Invega) 9 mg QHS PO 05/27/19 21:00 06/03/19 19:34 DC 06/01/19 21:43 Trazodone HCl (Desyrel) 50 mg QHSP PRN PO INSOMNIA 05/21/19 18:45 Allergies Coded Allergies: Penicillins (Verified Allergy, Severe, hives, 05/21/19) RAMIRO VANN DO Jun 10, 2019 10:20
[2019-06-10 18:00] VITALS: BP 122/88
[2019-06-11 06:16] VITALS: BP 118/76
[2019-06-11] MEDS: OLANZapine ORAL DISINTEGRATING TAB 5MG PO SCH ×2 (09:00→21:00)
[2019-06-11] MEDS: FLUoxetine 10 MG CAP PO SCH (09:00)
--- NOTE | 2019-06-11 10:02 | MHIPNPDOC ---
[facility] Progress Note Progress Note Efren Bettencourt Inpatient Progress Note Efren Bettencourt Select Gender MRN: N/A Date of : MM/DD/YYYY Date of Service: 06/11/2019 History of Present Illness The patient is a 48-year-old man who previously was admitted to the inpatient unit in 2018 and transferred last time to [place], presented initially on a pickup order as he had been living with his sister and he had become increasingly bizarre, decompensated, not taking his medications, becoming verbally and physically aggressive. He is noted to be unkempt and had been staring into the window on initial assessment in the ER, fairly psychotic. Interval History The patient was met with today where he was attempted to be met with, however, he has been under a room lockout where he has been able to walk around the unit. He has extremely poor hygiene, but was able with extreme effort of the staff able to get a shower after being prompted significantly, however, he still has difficulty urinating in the hallway requiring prompting in order to be taken to the bathroom. The patient still is fairly psychotic, walking away whenever we approach to talk to him. He still has been refusing the medications and the treatment over objection will be on Friday. He's had no major behavioral problems overnight. Nursing staff still notice that he walks around bizarrely. He declines to answer any questions by this provider. Review Of Systems Declines to answer. Psychotherapy None on this visit. Vital Signs Reviewed. Mental Status Examination General: Poor hygiene Speech: Sparse Thought processes: Appears linear MSK: Smooth and coordinated gait, no signs of tremors or involuntary orofacial movements Thought content: Unclear Abstract reasoning, and computation: Impaired Description of associations: Impaired Description of abnormal or psychotic thoughts: Unknown. Judgment: Poor Insight: Poor Orientation: Alert and orientated 3 Cognition: Grossly normal Recent and remote memory: Intact Attention span and concentration: Intact Fund of knowledge: Adequate Mood: "..." Affect: Flat with little reactivity Diagnoses Schizophrenia. Assessment and Plan Schizophrenia: Continue to offer Zyprexa Zydis 5 mg BID. Treatment over objection will continue to be pursued. Disposition Treatment over objection being pursued due to severe impairment in self-care putting the patient in danger of . Time Spent 10 minutes. Vital Signs Vital Signs Date Time Temp Pulse Resp B/P (MAP) Pulse Ox O2 Delivery O2 Flow Rate FiO2 06/11/19 06:16 97.3 62 16 118/76 (90) 06/09/19 07:49 Room Air Current Medications Current Medications Medications (Trade) Dose Ordered Sig/Ana Route PRN Reason Start Time Stop Time Status Last Admin Dose Admin Acetaminophen (Tylenol Tab) 650 mg Q6HP PRN PO HEADACHE or DISCOMFORT 05/21/19 18:45 Al Hydrox/Mg Hydrox/Simethicone (Mylanta) 30 ml Q4HP PRN PO HEARTBURN/INDIGESTION 05/21/19 18:45 Fluoxetine HCl (PROzac) 10 mg DAILY PO 05/23/19 09:00 06/01/19 09:15 Home Med (Med Rec Complete!) ASDIRECTED XX 05/21/19 18:00 05/21/19 17:58 DC Home Med (Med Rec Complete!) ASDIRECTED XX 05/21/19 19:30 05/21/19 19:31 DC Itraconazole (Sporanox) 200 mg DAILY@0800 PO 05/22/19 10:00 05/29/19 09:59 DC 05/28/19 09:25 Lorazepam (Ativan) 1 mg STAT STAT PO 05/22/19 14:44 05/22/19 14:45 Cancel Lorazepam (Ativan) 1 mg TID PRN PO ANXIETY 05/22/19 14:45 Cancel Magnesium Hydroxide (Milk Of Magnesia) 30 ml DAILYPRN PRN PO CONSTIPATION 05/21/19 18:45 Olanzapine (ZyPREXA ZYDIS) 5 mg BID PO 06/03/19 21:00 Olanzapine (ZyPREXA ZYDIS) 5 mg Q6HP PRN PO ANXIETY/AGITATION 05/21/19 18:45 Paliperidone (Invega) 3 mg BID PO 05/21/19 21:00 05/27/19 10:56 DC 05/27/19 08:59 Paliperidone (Invega) 9 mg QHS PO 05/27/19 21:00 06/03/19 19:34 DC 06/01/19 21:43 Trazodone HCl (Desyrel) 50 mg QHSP PRN PO INSOMNIA 05/21/19 18:45 Allergies Coded Allergies: Penicillins (Verified Allergy, Severe, hives, 05/21/19) RAMIRO VANN DO Jun 11, 2019 10:02
[2019-06-11 18:00] VITALS: BP 111/77
[2019-06-12 06:37] VITALS: BP 132/81
[2019-06-12] MEDS: OLANZapine ORAL DISINTEGRATING TAB 5MG PO SCH ×2 (09:00→22:20)
[2019-06-12] MEDS: FLUoxetine 10 MG CAP PO SCH (09:00)
[2019-06-12 16:08] VITALS: BP 103/66
[2019-06-13 06:22] VITALS: BP 116/69
[2019-06-13] MEDS: FLUoxetine 10 MG CAP PO SCH (08:08)
[2019-06-13] MEDS: OLANZapine ORAL DISINTEGRATING TAB 5MG PO SCH ×2 (08:08→21:00)
[2019-06-13 16:18] VITALS: BP 100/66
[2019-06-14 06:52] VITALS: BP 126/78
[2019-06-14] MEDS: OLANZapine ORAL DISINTEGRATING TAB 5MG PO SCH ×2 (09:00→21:00)
[2019-06-14] MEDS: FLUoxetine 10 MG CAP PO SCH (09:00)
[2019-06-14 16:00] VITALS: BP 112/80
--- NOTE | 2019-06-14 19:25 | MHIPNPDOC ---
[facility] Progress Note Progress Note Efren Bettencourt Inpatient Progress Note Efren Bettencourt Select Gender MRN: N/A Date of : MM/DD/YYYY Date of Service: 06/14/2019 History of Present Illness The patient is a 48-year-old man who previously was admitted to the inpatient unit in 2018 and transferred last time to [place], presented initially on a pickup order as he had been living with his sister and he had become increasingly bizarre, decompensated, not taking his medications, becoming verbally and physically aggressive. He is noted to be unkempt and had been staring into the window on initial assessment in the ER, fairly psychotic. Interval History The patient is met with today, he declines any interview and continues to walk bizarrely down the hallway. He still has difficulty engaging in any meaningful activities of daily living. He will have the treatment over objection hearing tomorrow. No major behavioral problems other than notably trying to get past staff in order to get around other patients, namely a particular female patient. He has been restricted to the newer part of the hospital away from the said patient as he's notably been making some female patients uncomfortable with his stares. Review Of Systems Declines to answer. Psychotherapy None on this visit. Vital Signs Reviewed. Mental Status Examination General: Poor hygiene Speech: Sparse Thought processes: Appears linear MSK: Smooth and coordinated gait, no signs of tremors or involuntary orofacial m ovements Thought content: Unclear Abstract reasoning, and computation: Impaired Description of associations: Impaired Description of abnormal or psychotic thoughts: Unknown. Judgment: Poor Insight: Poor Orientation: Alert and orientated 3 Cognition: Grossly normal Recent and remote memory: Intact Attention span and concentration: Intact Fund of knowledge: Adequate Mood: "..." Affect: Flat with little reactivity Diagnoses Schizophrenia. Assessment and Plan Schizophrenia: Continue to offer Zyprexa Zydis 5 mg BID. Treatment over objection will continue to be pursued. Disposition Treatment over objection being pursued due to severe impairment in self-care putting the patient in danger of . Time Spent 10 minutes. Vital Signs Vital Signs Date Time Temp Pulse Resp B/P (MAP) Pulse Ox O2 Delivery O2 Flow Rate FiO2 06/14/19 16:00 98.8 90 16 112/80 (91) 06/11/19 18:00 Room Air Current Medications Current Medications Medications (Trade) Dose Ordered Sig/Ana Route PRN Reason Start Time Stop Time Status Last Admin Dose Admin Acetaminophen (Tylenol Tab) 650 mg Q6HP PRN PO HEADACHE or DISCOMFORT 05/21/19 18:45 Al Hydrox/Mg Hydrox/Simethicone (Mylanta) 30 ml Q4HP PRN PO HEARTBURN/INDIGESTION 05/21/19 18:45 Fluoxetine HCl (PROzac) 10 mg DAILY PO 05/23/19 09:00 06/01/19 09:15 Home Med (Med Rec Complete!) ASDIRECTED XX 05/21/19 18:00 05/21/19 17:58 DC Home Med (Med Rec Complete!) ASDIRECTED XX 05/21/19 19:30 05/21/19 19:31 DC Itraconazole (Sporanox) 200 mg DAILY@0800 PO 05/22/19 10:00 05/29/19 09:59 DC 05/28/19 09:25 Lorazepam (Ativan) 1 mg STAT STAT PO 05/22/19 14:44 05/22/19 14:45 Cancel Lorazepam (Ativan) 1 mg TID PRN PO ANXIETY 05/22/19 14:45 Cancel Magnesium Hydroxide (Milk Of Magnesia) 30 ml DAILYPRN PRN PO CONSTIPATION 05/21/19 18:45 Olanzapine (ZyPREXA ZYDIS) 5 mg BID PO 06/03/19 21:00 Olanzapine (ZyPREXA ZYDIS) 5 mg Q6HP PRN PO ANXIETY/AGITATION 05/21/19 18:45 Paliperidone (Invega) 3 mg BID PO 05/21/19 21:00 05/27/19 10:56 DC 05/27/19 08:59 Paliperidone (Invega) 9 mg QHS PO 05/27/19 21:00 06/03/19 19:34 DC 06/01/19 21:43 Trazodone HCl (Desyrel) 50 mg QHSP PRN PO INSOMNIA 05/21/19 18:45 Allergies Coded Allergies: Penicillins (Verified Allergy, Severe, hives, 05/21/19) RAMIRO VANN DO Jun 14, 2019 19:25
[2019-06-15 06:31] VITALS: BP 111/69
[2019-06-15] MEDS: OLANZapine ORAL DISINTEGRATING TAB 5MG PO SCH ×2 (09:00→20:29)
[2019-06-15] MEDS: FLUoxetine 10 MG CAP PO SCH (09:00)
--- NOTE | 2019-06-15 11:26 | MHIPNPDOC ---
[facility] Progress Note Progress Note Efren Bettencourt Inpatient Progress Note Efren Bettencourt Select Gender MRN: N/A Date of : MM/DD/YYYY Date of Service: 06/15/2019 History of Present Illness The patient is a 48-year-old man who previously was admitted to the inpatient unit in 2018 and transferred last time to [place], presented initially on a pickup order as he had been living with his sister and he had become increasingly bizarre, decompensated, not taking his medications, becoming verbally and physically aggressive. He is noted to be unkempt and had been staring into the window on initial assessment in the ER, fairly psychotic. Interval History The patient is met with today. He still is bizarre and refuses to answer any questions, walking around the hallways. He has had notable behavioral problems and has urinated in the hallway before. He is engaged in unusual behavior, staring at other patients, but has had no episodes of agitation. He is unable to care for himself, requiring significant prompting for activities of daily living, and only leaves his room to eat. Review Of Systems Declines to answer. Psychotherapy None on this visit. Vital Signs Reviewed. Mental Status Examination General: Poor hygiene Speech: Sparse Thought processes: Appears linear MSK: Smooth and coordinated gait, no signs of tremors or involuntary orofacial movements Thought content: Unclear Abstract reasoning, and computation: Impaired Description of associations: Impaired Description of abnormal or psychotic thoughts: Unknown. Judgment: Poor Insight: Poor Orientation: Alert and orientated 3 Cognition: Grossly normal Recent and remote memory: Intact Attention span and concentration: Intact Fund of knowledge: Adequate Mood: "..." Affect: Flat with little reactivity Diagnoses Schizophrenia. Assessment and Plan Schizophrenia: Continue to offer Zyprexa Zydis 5 mg BID. Treatment over objection will continue to be pursued. Disposition Treatment over objection being pursued due to severe impairment in self-care putting the patient in danger of . Time Spent 10 minutes [id number] Vital Signs Vital Signs Date Time Temp Pulse Resp B/P (MAP) Pulse Ox O2 Delivery O2 Flow Rate FiO2 06/15/19 06:31 97.5 82 14 111/69 (83) Room Air Current Medications Current Medications Medications (Trade) Dose Ordered Sig/Ana Route PRN Reason Start Time Stop Time Status Last Admin Dose Admin Acetaminophen (Tylenol Tab) 650 mg Q6HP PRN PO HEADACHE or DISCOMFORT 05/21/19 18:45 Al Hydrox/Mg Hydrox/Simethicone (Mylanta) 30 ml Q4HP PRN PO HEARTBURN/INDIGESTION 05/21/19 18:45 Fluoxetine HCl (PROzac) 10 mg DAILY PO 05/23/19 09:00 06/01/19 09:15 Home Med (Med Rec Complete!) ASDIRECTED XX 05/21/19 18:00 05/21/19 17:58 DC Home Med (Med Rec Complete!) ASDIRECTED XX 05/21/19 19:30 05/21/19 19:31 DC Itraconazole (Sporanox) 200 mg DAILY@0800 PO 05/22/19 10:00 05/29/19 09:59 DC 05/28/19 09:25 Lorazepam (Ativan) 1 mg STAT STAT PO 05/22/19 14:44 05/22/19 14:45 Cancel Lorazepam (Ativan) 1 mg TID PRN PO ANXIETY 05/22/19 14:45 Cancel Magnesium Hydroxide (Milk Of Magnesia) 30 ml DAILYPRN PRN PO CONSTIPATION 05/21/19 18:45 Olanzapine (ZyPREXA ZYDIS) 5 mg BID PO 06/03/19 21:00 Olanzapine (ZyPREXA ZYDIS) 5 mg Q6HP PRN PO ANXIETY/AGITATION 05/21/19 18:45 Paliperidone (Invega) 3 mg BID PO 05/21/19 21:00 05/27/19 10:56 DC 05/27/19 08:59 Paliperidone (Invega) 9 mg QHS PO 05/27/19 21:00 06/03/19 19:34 DC 06/01/19 21:43 Trazodone HCl (Desyrel) 50 mg QHSP PRN PO INSOMNIA 05/21/19 18:45 Allergies Coded Allergies: Penicillins (Verified Allergy, Severe, hives, 05/21/19) RAMIRO VANN DO Jun 15, 2019 11:26
--- NOTE | 2019-06-15 11:47 | MHIPNPDOC ---
[facility] Progress Note Progress Note DATE OF SERVICE: 06/15/19 TREATMENT OVER OBJECTION DATE OF ADMISSION: 05/21/19 DATE OF SERVICE: 06/15/19 ATTENDING DOCTOR: Samantha Treadwell DO FAMILY CONTACTS: Sister, AP worker SECTION I: CLINICAL SUMMARY: The patient a 48-year-old man with a history of schizophrenia presents after engaging in dangerous and aggressive behavior after leaving a long-term psychiatric care facility, he had refused to follow up with any outpatient treatment and decompensated becoming bizarre and had stop showering unable to engage in even the most basic everyday care for himself. The patient presented to [facility] on a pickup order, where he was unable to engage in a meaningful interview to psychotic in order to understand. He has been refusing medications, at first he appeared to be taking medications but had in actuality been collecting them and throwing them into the garbage until we found them when he confronted him he refused to take the medication that was given to him that would not allow him to do this. DIAGNOSIS: Schizophrenia SECTION II: Proposed Treatment. 1. Course of treatment recommended by treating physician: To prescribe either an antipsychotic or mood stabilizer or both - Invega 3 mg twice a day with the option of increasing this dose progressively up to 6 or 9 mg twice a day as tolerated for signs and symptoms of psychosis. Initiate Invega Sustenna 234mg loading dose IM injection and then, pending medication tolerance, Invega Sustenna 156mg maintenance dose IM injection for medication compliance 3 days later. If the patient refuses treatment by mouth, the patient should receive Zyprexa IM 10 mg at various doses up to a total of 30 mg per day. The patient will then be maintained on Invega Sustenna monthly injection with doses up to 234 mg IM every month once he is discharged - Cogentin 0.5 to 1mg daily up to a total of 4 mg per day in divided doses if Parkinsonian symptoms are evident. 2. Reasonable alternatives if any are: Haldol 5 to 10mg IM and Ativan 2mg IM in the event patient becomes a danger to herself or others during her treatment. The patient requires an antipsychotic medication for the treatment of her bipolar condition. 3. Reasonable alternatives if any are: Thorazine 50-100mg IM and Ativan 2mg IM in the event patient becomes a danger to herself or others during her treatment. The patient requires an antipsychotic medication for the treatment of her bipolar condition. Has the patient been tried on the proposed treatment: The patient has been on trials of invega, olanzapine with good results while taking them 4. Anticipated benefits to proposed treatment: This treatment will allow the patient to gain control over symptoms so that they can have success as an outpatient 5. Reasonable foreseeable adverse side effects: Parkinsonian symptoms, weight gain, sedation, side effects of neuroleptics. In rare cases, neuroleptic malignant syndrome and tardive dyskinesia may develop. 6. Prognosis without treatment:The patient's prognosis of the treatment is very grim, she will likely continue to pose a danger to himself or others SECTION III: Patient's capacity. 1. Explained to the patient: A. Condition: No B. Proposed treatment: No C. Anticipated benefits of treatment: No D. Risks of adverse side effects of treatment: No E. Availability of other treatments and comparison of benefits and risks: No F. Risk of no treatment: No The patient was attempted to be spoken to, however he stares blankly not engaging in any conversation, even when explain the danger of a situation the need for medications he has "no reason" to not take medications but appears to have extreme ambivalence 2. State the nature of the patient's objections to treatment: has no reason (appears due to extreme loss of insight) 3. The patient's capacity: Lacks any capacity to understand him condition or the danger that he places herself in by her behavior or lack of compliance with treatment. SECTION IV: LIKELIHOOD FOR DANGEROUS BEHAVIOR: 1. The patient is believed to be dangerous to others at the hospital unless treated: Yes. 2. Is the patient believed to be likely dangerous to self if not treated: Yes. SECTION V: ANY OTHER INFORMATION:N/A Vital Signs Vital Signs Date Time Temp Pulse Resp B/P (MAP) Pulse Ox O2 Delivery O2 Flow Rate FiO2 06/15/19 06:31 97.5 82 14 111/69 (83) Room Air Current Medications Current Medications Medications (Trade) Dose Ordered Sig/Ana Route PRN Reason Start Time Stop Time Status Last Admin Dose Admin Acetaminophen (Tylenol Tab) 650 mg Q6HP PRN PO HEADACHE or DISCOMFORT 05/21/19 18:45 Al Hydrox/Mg Hydrox/Simethicone (Mylanta) 30 ml Q4HP PRN PO HEARTBURN/INDIGESTION 05/21/19 18:45 Fluoxetine HCl (PROzac) 10 mg DAILY PO 05/23/19 09:00 06/01/19 09:15 Home Med (Med Rec Complete!) ASDIRECTED XX 05/21/19 18:00 05/21/19 17:58 DC Home Med (Med Rec Complete!) ASDIRECTED XX 05/21/19 19:30 05/21/19 19:31 DC Itraconazole (Sporanox) 200 mg DAILY@0800 PO 05/22/19 10:00 05/29/19 09:59 DC 05/28/19 09:25 Lorazepam (Ativan) 1 mg STAT STAT PO 05/22/19 14:44 05/22/19 14:45 Cancel Lorazepam (Ativan) 1 mg TID PRN PO ANXIETY 05/22/19 14:45 Cancel Magnesium Hydroxide (Milk Of Magnesia) 30 ml DAILYPRN PRN PO CONSTIPATION 05/21/19 18:45 Olanzapine (ZyPREXA ZYDIS) 5 mg BID PO 06/03/19 21:00 Olanzapine (ZyPREXA ZYDIS) 5 mg Q6HP PRN PO ANXIETY/AGITATION 05/21/19 18:45 Paliperidone (Invega) 3 mg BID PO 05/21/19 21:00 05/27/19 10:56 DC 05/27/19 08:59 Paliperidone (Invega) 9 mg QHS PO 05/27/19 21:00 06/03/19 19:34 DC 06/01/19 21:43 Trazodone HCl (Desyrel) 50 mg QHSP PRN PO INSOMNIA 05/21/19 18:45 Allergies Coded Allergies: Penicillins (Verified Allergy, Severe, hives, 05/21/19) SAMANTHA TREADWELL DO Jun 15, 2019 11:47
[2019-06-15 16:08] VITALS: BP 120/76
[2019-06-16 06:32] VITALS: BP 121/80
[2019-06-16] MEDS: OLANZapine ORAL DISINTEGRATING TAB 5MG PO SCH ×2 (09:00→21:00)
[2019-06-16] MEDS: FLUoxetine 10 MG CAP PO SCH (09:00)
--- NOTE | 2019-06-16 11:53 | MHIPNPDOC ---
[facility] Progress Note Progress Note Inpatient Progress Note Efren Bettencourt MRN: N/A Date of : N/A Date of Service: 06/16/2019 History of Present Illness The patient is a 48-year-old man who previously was admitted to the inpatient unit in 2018 and transferred last time to [place], presented initially on a pickup order as he had been living with his sister and he had become increasingly bizarre, decompensated, not taking his medications, becoming verbally and physically aggressive. He is noted to be unkempt and had been staring into the window on initial assessment in the ER, fairly psychotic. Interval History The patient is attempted to be met with today, however, he refused to meet, saying simply yes "to everything that is asked of him." He still remains bizarre. He has urinated in the hallway multiple times and has become difficult to control as he does not control his bowel movements. He continues to need prompting for basic hygiene and taking care of himself. He has generally been unable to socialize or attend any groups. He remains bizarre, staring into other patients' rooms. Review Of Systems Declines to answer. Psychotherapy None on this visit. Vital Signs Reviewed. Mental Status Examination General: Poor hygiene Speech: Sparse Thought processes: Appears linear MSK: Smooth and coordinated gait, no signs of tremors or involuntary orofacial movements Thought content: Unclear Abstract reasoning, and computation: Impaired Description of associations: Impaired Description of abnormal or psychotic thoughts: Unknown. Judgment: Poor Insight: Poor Orientation: Alert and orientated 3 Cognition: Grossly normal Recent and remote memory: Intact Attention span and concentration: Intact Fund of knowledge: Adequate Mood: "..." Affect: Flat with little reactivity Diagnoses Schizophrenia. Assessment and Plan Schizophrenia: Continue to offer Zyprexa Zydis 5 mg BID. Treatment over objection will continue to be pursued. Disposition Treatment over objection being pursued due to severe impairment in self-care putting the patient in danger of . Time Spent 10 minutes [id number]. Friday Vital Signs Vital Signs Date Time Temp Pulse Resp B/P (MAP) Pulse Ox O2 Delivery O2 Flow Rate FiO2 06/16/19 06:32 97.0 67 18 121/80 (94) 06/15/19 06:31 Room Air Current Medications Current Medications Medications (Trade) Dose Ordered Sig/Ana Route PRN Reason Start Time Stop Time Status Last Admin Dose Admin Acetaminophen (Tylenol Tab) 650 mg Q6HP PRN PO HEADACHE or DISCOMFORT 05/21/19 18:45 Al Hydrox/Mg Hydrox/Simethicone (Mylanta) 30 ml Q4HP PRN PO HEARTBURN/INDIGESTION 05/21/19 18:45 Fluoxetine HCl (PROzac) 10 mg DAILY PO 05/23/19 09:00 06/01/19 09:15 Home Med (Med Rec Complete!) ASDIRECTED XX 05/21/19 18:00 05/21/19 17:58 DC Home Med (Med Rec Complete!) ASDIRECTED XX 05/21/19 19:30 05/21/19 19:31 DC Itraconazole (Sporanox) 200 mg DAILY@0800 PO 05/22/19 10:00 05/29/19 09:59 DC 05/28/19 09:25 Lorazepam (Ativan) 1 mg STAT STAT PO 05/22/19 14:44 05/22/19 14:45 Cancel Lorazepam (Ativan) 1 mg TID PRN PO ANXIETY 05/22/19 14:45 Cancel Magnesium Hydroxide (Milk Of Magnesia) 30 ml DAILYPRN PRN PO CONSTIPATION 05/21/19 18:45 Olanzapine (ZyPREXA ZYDIS) 5 mg BID PO 06/03/19 21:00 Olanzapine (ZyPREXA ZYDIS) 5 mg Q6HP PRN PO ANXIETY/AGITATION 05/21/19 18:45 Paliperidone (Invega) 3 mg BID PO 05/21/19 21:00 05/27/19 10:56 DC 05/27/19 08:59 Paliperidone (Invega) 9 mg QHS PO 05/27/19 21:00 06/03/19 19:34 DC 06/01/19 21:43 Trazodone HCl (Desyrel) 50 mg QHSP PRN PO INSOMNIA 05/21/19 18:45 Allergies Coded Allergies: Penicillins (Verified Allergy, Severe, hives, 05/21/19) RAMIRO VANN DO Jun 16, 2019 11:53
[2019-06-16 16:52] VITALS: BP 103/63
[2019-06-17 06:17] VITALS: BP 125/91
[2019-06-17] MEDS: OLANZapine ORAL DISINTEGRATING TAB 5MG PO SCH ×2 (09:00→20:17)
[2019-06-17] MEDS: FLUoxetine 10 MG CAP PO SCH (09:00)
--- NOTE | 2019-06-17 11:28 | MHIPNPDOC ---
[facility] Progress Note Progress Note Inpatient Progress Note Efren Bettencourt MRN: N/A Date of : N/A Date of Service: 06/17/2019 History of Present Illness The patient is a 48-year-old man who previously was admitted to the inpatient unit in 2018 and transferred last time to [place], presented initially on a pickup order as he had been living with his sister and he had become increasingly bizarre, decompensated, not taking his medications, becoming verbally and physically aggressive. He is noted to be unkempt and had been staring into the window on initial assessment in the ER, fairly psychotic. Interval History The patient is attempted to be met with today. He has been pacing the hallways requiring observation as he has been going into others rooms. He still has problems urinating in the hallways. He has been placed in a solo room due to his severe incontinence. He declines an interview today, walking by staring bizarrely. He has had difficulty focusing on different female peers and the concern is that he will act inappropriately with them. Review Of Systems Declines to answer. Psychotherapy None on this visit. Vital Signs Reviewed. Mental Status Examination General: Poor hygiene Speech: No speech Thought processes: Linear and logical MSK: Smooth and coordinated gait, no signs of tremors or involuntary orofacial movements Thought content: Unknown. Abstract reasoning, and computation: Impaired Description of associations: Impaired Description of abnormal or psychotic thoughts: Unknown Judgment: Poor Insight: Poor Orientation: Alert and orientated 3 Cognition: Grossly normal Recent and remote memory: Intact Attention span and concentration: Intact Fund of knowledge: Adequate Mood: "..." Affect: Flat with a constricted range Diagnoses Schizophrenia. Assessment and Plan Schizophrenia: Continue to offer Zyprexa Zydis 5 mg BID. Treatment over objection will continue to be pursued. Disposition Treatment over objection being pursued due to severe impairment in self-care putting the patient in danger of . Time Spent 10 minutes [id number]. Vital Signs Vital Signs Date Time Temp Pulse Resp B/P (MAP) Pulse Ox O2 Delivery O2 Flow Rate FiO2 06/17/19 06:17 97.0 71 125/91 (102) 06/16/19 16:52 16 06/15/19 06:31 Room Air Current Medications Current Medications Medications (Trade) Dose Ordered Sig/Ana Route PRN Reason Start Time Stop Time Status Last Admin Dose Admin Acetaminophen (Tylenol Tab) 650 mg Q6HP PRN PO HEADACHE or DISCOMFORT 05/21/19 18:45 Al Hydrox/Mg Hydrox/Simethicone (Mylanta) 30 ml Q4HP PRN PO HEARTBURN/INDIGESTION 05/21/19 18:45 Fluoxetine HCl (PROzac) 10 mg DAILY PO 05/23/19 09:00 06/01/19 09:15 Home Med (Med Rec Complete!) ASDIRECTED XX 05/21/19 18:00 05/21/19 17:58 DC Home Med (Med Rec Complete!) ASDIRECTED XX 05/21/19 19:30 05/21/19 19:31 DC Itraconazole (Sporanox) 200 mg DAILY@0800 PO 05/22/19 10:00 05/29/19 09:59 DC 05/28/19 09:25 Lorazepam (Ativan) 1 mg STAT STAT PO 05/22/19 14:44 05/22/19 14:45 Cancel Lorazepam (Ativan) 1 mg TID PRN PO ANXIETY 05/22/19 14:45 Cancel Magnesium Hydroxide (Milk Of Magnesia) 30 ml DAILYPRN PRN PO CONSTIPATION 05/21/19 18:45 Olanzapine (ZyPREXA ZYDIS) 5 mg BID PO 06/03/19 21:00 Olanzapine (ZyPREXA ZYDIS) 5 mg Q6HP PRN PO ANXIETY/AGITATION 05/21/19 18:45 Paliperidone (Invega) 3 mg BID PO 05/21/19 21:00 05/27/19 10:56 DC 05/27/19 08:59 Paliperidone (Invega) 9 mg QHS PO 05/27/19 21:00 06/03/19 19:34 DC 06/01/19 21:43 Trazodone HCl (Desyrel) 50 mg QHSP PRN PO INSOMNIA 05/21/19 18:45 Allergies Coded Allergies: Penicillins (Verified Allergy, Severe, hives, 05/21/19) RAMIRO VANN DO Jun 17, 2019 11:28
[2019-06-17 18:00] VITALS: BP 112/72
[2019-06-18] MEDS: FLUoxetine 10 MG CAP PO SCH (09:00)
[2019-06-18] MEDS: OLANZapine ORAL DISINTEGRATING TAB 5MG PO SCH ×2 (09:00→20:27)
--- NOTE | 2019-06-18 09:07 | MHIPNPDOC ---
[facility] Progress Note Progress Note Efren Bettencourt Inpatient Progress Note Efren Bettencourt Select Gender MRN: N/A Date of : MM/DD/YYYY Date of Service: 06/18/2019 History of Present Illness The patient is a 48-year-old man who previously was admitted to the inpatient unit in 2018 and transferred last time to [place], presented initially on a pickup order as he had been living with his sister and he had become increasingly bizarre, decompensated, not taking his medications, becoming verbally and physically aggressive. He is noted to be unkempt and had been staring into the window on initial assessment in the ER, fairly psychotic. Interval History The patient is attempted to be met with today. He refuses interview today, lying in bed. 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 He is notably even staring into the rooms and has been unable to care for himself. He still urinates in the hallway and has to be placed in a private room due to his frequent urination. He is unable to care for himself, does not shower without significant prompting and other than eating, does not engage in any social activity. He has had no major behavioral problems overnight. Review Of Systems Declines interview. Psychotherapy None on this visit. Vital Signs Reviewed. Mental Status Examination General: Poor hygiene Speech: Mute Thought processes: Unknown MSK: Smooth and coordinated gait, no signs of tremors or involuntary orofacial movements Thought content: Unknown Abstract reasoning, and computation: Unknown Description of associations: Unknown Description of abnormal or psychotic thoughts: Unknown Judgment: Impaired Insight: Impaired Orientation: Appears alert Cognition: Grossly normal Recent and remote memory: Intact Attention span and concentration: Intact Fund of knowledge: Adequate Mood: "..." Affect: Flat with no reactivity Diagnoses Schizophrenia. Assessment and Plan Schizophrenia: Continue to offer Zyprexa Zydis 5 mg BID. Treatment over objection will continue to be pursued. Disposition Treatment over objection being pursued due to severe impairment in self-care putting the patient in danger of . Time Spent 10 minutes [id number]. Vital Signs Vital Signs Date Time Temp Pulse Resp B/P (MAP) Pulse Ox O2 Delivery O2 Flow Rate FiO2 06/17/19 18:00 98.1 88 14 112/72 (85) 06/15/19 06:31 Room Air Current Medications Current Medications Medications (Trade) Dose Ordered Sig/Ana Route PRN Reason Start Time Stop Time Status Last Admin Dose Admin Acetaminophen (Tylenol Tab) 650 mg Q6HP PRN PO HEADACHE or DISCOMFORT 05/21/19 18:45 Al Hydrox/Mg Hydrox/Simethicone (Mylanta) 30 ml Q4HP PRN PO HEARTBURN/INDIGESTION 05/21/19 18:45 Fluoxetine HCl (PROzac) 10 mg DAILY PO 05/23/19 09:00 06/01/19 09:15 Home Med (Med Rec Complete!) ASDIRECTED XX 05/21/19 18:00 05/21/19 17:58 DC Home Med (Med Rec Complete!) ASDIRECTED XX 05/21/19 19:30 05/21/19 19:31 DC Itraconazole (Sporanox) 200 mg DAILY@0800 PO 05/22/19 10:00 05/29/19 09:59 DC 05/28/19 09:25 Lorazepam (Ativan) 1 mg STAT STAT PO 05/22/19 14:44 05/22/19 14:45 Cancel Lorazepam (Ativan) 1 mg TID PRN PO ANXIETY 05/22/19 14:45 Cancel Magnesium Hydroxide (Milk Of Magnesia) 30 ml DAILYPRN PRN PO CONSTIPATION 05/21/19 18:45 Olanzapine (ZyPREXA ZYDIS) 5 mg BID PO 06/03/19 21:00 Olanzapine (ZyPREXA ZYDIS) 5 mg Q6HP PRN PO ANXIETY/AGITATION 05/21/19 18:45 Paliperidone (Invega) 3 mg BID PO 05/21/19 21:00 05/27/19 10:56 DC 05/27/19 08:59 Paliperidone (Invega) 9 mg QHS PO 05/27/19 21:00 06/03/19 19:34 DC 06/01/19 21:43 Trazodone HCl (Desyrel) 50 mg QHSP PRN PO INSOMNIA 05/21/19 18:45 Allergies Coded Allergies: Penicillins (Verified Allergy, Severe, hives, 05/21/19) RAMIRO VANN DO Jun 18, 2019 09:07
[2019-06-18 16:10] VITALS: BP 140/83
[2019-06-19 07:05] VITALS: BP 119/81
[2019-06-19] MEDS: FLUoxetine 10 MG CAP PO SCH (08:46)
[2019-06-19] MEDS: OLANZapine ORAL DISINTEGRATING TAB 5MG PO SCH ×2 (09:00→20:39)
[2019-06-19 16:14] VITALS: BP 113/62
[2019-06-20 06:48] VITALS: BP 111/79
[2019-06-20] MEDS: FLUoxetine 10 MG CAP PO SCH (08:56)
[2019-06-20] MEDS: OLANZapine ORAL DISINTEGRATING TAB 5MG PO SCH ×2 (08:57→20:30)
[2019-06-20 16:27] VITALS: BP 120/61
[2019-06-21 06:39] VITALS: BP 113/79
[2019-06-21] MEDS: FLUoxetine 10 MG CAP PO SCH (09:00)
[2019-06-21] MEDS: OLANZapine ORAL DISINTEGRATING TAB 5MG PO SCH ×2 (09:00→21:00)
--- NOTE | 2019-06-21 10:14 | MHIPNPDOC ---
[facility] Progress Note Progress Note Inpatient Progress Note Efren Bettencourt MRN: N/A Date of : N/A Date of Service: 06/21/2019 History of Present Illness The patient is a 48-year-old man who previously was admitted to the inpatient unit in 2018 and transferred last time to [place], presented initially on a pickup order as he had been living with his sister and he had become increasingly bizarre, decompensated, not taking his medications, becoming verbally and physically aggressive. He is noted to be unkempt and had been staring into the window on initial assessment in the ER, fairly psychotic. Interval History The patient has attempted to be met with today, however, he is laying in bed. He continues on a 1:1 as he has made multiple incursions into the women's bathroom and continues to be preoccupied with various female patients. When asked about any of these events, he just states "yup" and does not engage. He still remains bizarre requiring significant prompting for simple hygiene. It is noted that it took 3-4 individuals in order to get the patient to shower. He eats, but is unable to be toilet himself at this time, still heavily disturbed, he lies in his bed staring off into the distance. Review Of Systems Declines to answer. Psychotherapy None on this visit. Vital Signs Reviewed. Mental Status Examination General: Poor hygiene Speech: Mute Thought processes: Unknown MSK: Smooth and coordinated gait, no signs of tremors or involuntary orofacial movements Thought content: Unknown Abstract reasoning, and computation: Unknown Description of associations: Unknown Description of abnormal or psychotic thoughts: Unknown Judgment: Impaired Insight: Impaired Orientation: Appears alert Cognition: Grossly normal Recent and remote memory: Intact Attention span and concentration: Intact Fund of knowledge: Adequate Mood: "..." Affect: Flat with no reactivity Diagnoses Schizophrenia. Assessment and Plan Schizophrenia: Continue to offer Zyprexa Zydis 5 mg BID. Treatment over objection will continue to be pursued. Disposition Treatment over objection being pursued due to severe impairment in self-care putting the patient in danger of . Time Spent 10 minutes [id number]. Friday Vital Signs Vital Signs Date Time Temp Pulse Resp B/P (MAP) Pulse Ox O2 Delivery O2 Flow Rate FiO2 06/21/19 06:39 97.7 76 18 113/79 (90) 11/3/19 06:48 Room Air Current Medications Current Medications Medications (Trade) Dose Ordered Sig/Ana Route PRN Reason Start Time Stop Time Status Last Admin Dose Admin Acetaminophen (Tylenol Tab) 650 mg Q6HP PRN PO HEADACHE or DISCOMFORT 05/21/19 18:45 Al Hydrox/Mg Hydrox/Simethicone (Mylanta) 30 ml Q4HP PRN PO HEARTBURN/INDIGESTION 05/21/19 18:45 Fluoxetine HCl (PROzac) 10 mg DAILY PO 05/23/19 09:00 06/01/19 09:15 Home Med (Med Rec Complete!) ASDIRECTED XX 05/21/19 18:00 05/21/19 17:58 DC Home Med (Med Rec Complete!) ASDIRECTED XX 05/21/19 19:30 05/21/19 19:31 DC Itraconazole (Sporanox) 200 mg DAILY@0800 PO 05/22/19 10:00 05/29/19 09:59 DC 05/28/19 09:25 Lorazepam (Ativan) 1 mg STAT STAT PO 05/22/19 14:44 05/22/19 14:45 Cancel Lorazepam (Ativan) 1 mg TID PRN PO ANXIETY 05/22/19 14:45 Cancel Magnesium Hydroxide (Milk Of Magnesia) 30 ml DAILYPRN PRN PO CONSTIPATION 05/21/19 18:45 Miscellaneous (Unresolved Clarification Entry) SEE LABEL COMMENTS DAILY XX 06/19/19 09:00 06/20/19 12:02 DC Olanzapine (ZyPREXA ZYDIS) 5 mg BID PO 06/03/19 21:00 Olanzapine (ZyPREXA ZYDIS) 5 mg Q6HP PRN PO ANXIETY/AGITATION 05/21/19 18:45 Paliperidone (Invega) 3 mg BID PO 05/21/19 21:00 05/27/19 10:56 DC 05/27/19 08:59 Paliperidone (Invega) 9 mg QHS PO 05/27/19 21:00 06/03/19 19:34 DC 06/01/19 21:43 Trazodone HCl (Desyrel) 50 mg QHSP PRN PO INSOMNIA 05/21/19 18:45 Allergies Coded Allergies: Penicillins (Verified Allergy, Severe, hives, 05/21/19) RAMIRO VANN DO Jun 21, 2019 10:14
[2019-06-21 16:27] VITALS: BP 115/68
[2019-06-22 06:37] VITALS: BP 108/63
[2019-06-22] MEDS: OLANZapine ORAL DISINTEGRATING TAB 5MG PO SCH ×2 (09:00→20:34)
[2019-06-22] MEDS: FLUoxetine 10 MG CAP PO SCH (09:00)
--- NOTE | 2019-06-22 10:17 | MHIPNPDOC ---
[facility] Progress Note Progress Note Efren Bettencourt Inpatient Progress Note Efren Bettencourt Select Gender MRN: N/A Date of : MM/DD/YYYY Date of Service: 06/22/2019 History of Present Illness The patient is a 48-year-old man who previously was admitted to the inpatient unit in 2018 and transferred last time to [place], presented initially on a pickup order as he had been living with his sister and he had become increasingly bizarre, decompensated, not taking his medications, becoming verbally and physically aggressive. He is noted to be unkempt and had been staring into the window on initial assessment in the ER, fairly psychotic. Interval History The patient is attempted to be met with again today, however, he's still fairly distorted and does not answer any of my questions, simply nodding yes and no in an uncoordinated fashion. He has had some difficulty with his behavior as he has been attempting to get into various females' rooms. He still continues to urinate in various spots around the unit, having very poor hygiene, unable to care for himself only present to eat at times and then stays in his bed. He doesn't sleep and has been walking around the unit bizarrely staring at others. Review Of Systems Declines to answer Psychotherapy None on this visit. Vital Signs Reviewed. Mental Status Examination General: Poor hygiene Speech: Mute Thought processes: Unknown MSK: Smooth and coordinated gait, no signs of tremors or involuntary orofacial movements Thought content: Unknown Abstract reasoning, and computation: Unknown Description of associations: Unknown Description of abnormal or psychotic thoughts: Unknown Judgment: Impaired Insight: Impaired Orientation: Appears alert Cognition: Grossly normal Recent and remote memory: Intact Attention span and concentration: Intact Fund of knowledge: Adequate Mood: "..." Affect: Flat with no reactivity Diagnoses Schizophrenia. Assessment and Plan Schizophrenia: Continue to offer Zyprexa Zydis 5 mg BID. Treatment over objection will continue to be pursued. Disposition Treatment over objection being pursued due to severe impairment in self-care putting the patient in danger of . Time Spent 10 minutes [id number]. Vital Signs Vital Signs Date Time Temp Pulse Resp B/P (MAP) Pulse Ox O2 Delivery O2 Flow Rate FiO2 06/22/19 06:37 97.9 66 12 108/63 (78) 06/21/19 16:27 97 06/20/19 06:48 Room Air Current Medications Current Medications Medications (Trade) Dose Ordered Sig/Ana Route PRN Reason Start Time Stop Time Status Last Admin Dose Admin Acetaminophen (Tylenol Tab) 650 mg Q6HP PRN PO HEADACHE or DISCOMFORT 05/21/19 18:45 Al Hydrox/Mg Hydrox/Simethicone (Mylanta) 30 ml Q4HP PRN PO HEARTBURN/INDIGESTION 05/21/19 18:45 Fluoxetine HCl (PROzac) 10 mg DAILY PO 05/23/19 09:00 06/01/19 09:15 Home Med (Med Rec Complete!) ASDIRECTED XX 05/21/19 18:00 05/21/19 17:58 DC Home Med (Med Rec Complete!) ASDIRECTED XX 05/21/19 19:30 05/21/19 19:31 DC Itraconazole (Sporanox) 200 mg DAILY@0800 PO 05/22/19 10:00 05/29/19 09:59 DC 05/28/19 09:25 Lorazepam (Ativan) 1 mg STAT STAT PO 05/22/19 14:44 05/22/19 14:45 Cancel Lorazepam (Ativan) 1 mg TID PRN PO ANXIETY 05/22/19 14:45 Cancel Magnesium Hydroxide (Milk Of Magnesia) 30 ml DAILYPRN PRN PO CONSTIPATION 05/21/19 18:45 Miscellaneous (Unresolved Clarification Entry) SEE LABEL COMMENTS DAILY XX 06/19/19 09:00 06/20/19 12:02 DC Olanzapine (ZyPREXA ZYDIS) 5 mg BID PO 06/03/19 21:00 Olanzapine (ZyPREXA ZYDIS) 5 mg Q6HP PRN PO ANXIETY/AGITATION 05/21/19 18:45 Paliperidone (Invega) 3 mg BID PO 05/21/19 21:00 05/27/19 10:56 DC 05/27/19 08:59 Paliperidone (Invega) 9 mg QHS PO 05/27/19 21:00 06/03/19 19:34 DC 06/01/19 21:43 Trazodone HCl (Desyrel) 50 mg QHSP PRN PO INSOMNIA 05/21/19 18:45 06/22/19 01:39 Allergies Coded Allergies: Penicillins (Verified Allergy, Severe, hives, 05/21/19) RAMIRO VANN DO Jun 22, 2019 10:17
[2019-06-23 06:48] VITALS: BP 107/61
[2019-06-23] MEDS: OLANZapine ORAL DISINTEGRATING TAB 5MG PO SCH ×2 (09:00→21:00)
--- NOTE | 2019-06-23 10:14 | MHIPNPDOC ---
[facility] Progress Note Progress Note Inpatient Progress Note Efren Bettencourt MRN: N/A Date of : N/A Date of Service: 06/23/2019 History of Present Illness The patient is a 48-year-old man who previously was admitted to the inpatient unit in 2018 and transferred last time to [place], presented initially on a pickup order as he had been living with his sister and he had become increasingly bizarre, decompensated, not taking his medications, becoming verbally and physically aggressive. He is noted to be unkempt and had been staring into the window on initial assessment in the ER, fairly psychotic. Interval History The patient is met with today, however, he still remains bizarre, lying in his bed. He has had difficulties trying to the women's shower. He continues to be bizarre, refusing to talk. At times, he will smile when a joke is undertaken, however, he still remains bizarre, unable to care for himself, urinating in the hallways. He consumes food when offered to him, however, otherwise he remains bizarre, staring off into a wall. It is unclear if he is responding to internal stimuli as he continues to stare at various patients. He still attempts to get access to various female patients for as yet unknown reasons, however, he has not got to any aggressive level and did not need to be coded last night. Review Of Systems Declines to answer. Psychotherapy None on this visit. Vital Signs Reviewed. Mental Status Examination General: Poor hygiene Speech: Mute Thought processes: Unknown MSK: Smooth and coordinated gait, no signs of tremors or involuntary orofacial movements Thought content: Unknown Abstract reasoning, and computation: Unknown Description of associations: Unknown Description of abnormal or psychotic thoughts: Unknown Judgment: Impaired Insight: Impaired Orientation: Appears alert Cognition: Grossly normal Recent and remote memory: Intact Attention span and concentration: Intact Fund of knowledge: Adequate Mood: "..." Affect: Flat with no reactivity Diagnoses Schizophrenia. Assessment and Plan Schizophrenia: Continue to offer Zyprexa Zydis 5 mg BID. Treatment over objection will continue to be pursued. Disposition Treatment over objection being pursued due to severe impairment in self-care putting the patient in danger of . Time Spent 10 minutes [id number]. Friday Vital Signs Vital Signs Date Time Temp Pulse Resp B/P (MAP) Pulse Ox O2 Delivery O2 Flow Rate FiO2 06/23/19 08:01 Room Air 06/23/19 06:48 97.6 88 14 107/61 (76) 06/21/19 16:27 97 Current Medications Current Medications Medications (Trade) Dose Ordered Sig/Ana Route PRN Reason Start Time Stop Time Status Last Admin Dose Admin Acetaminophen (Tylenol Tab) 650 mg Q6HP PRN PO HEADACHE or DISCOMFORT 05/21/19 18:45 Al Hydrox/Mg Hydrox/Simethicone (Mylanta) 30 ml Q4HP PRN PO HEARTBURN/INDIGESTION 05/21/19 18:45 Fluoxetine HCl (PROzac) 10 mg DAILY PO 05/23/19 09:00 06/22/19 11:05 DC 06/01/19 09:15 Home Med (Med Rec Complete!) ASDIRECTED XX 05/21/19 18:00 05/21/19 17:58 DC Home Med (Med Rec Complete!) ASDIRECTED XX 05/21/19 19:30 05/21/19 19:31 DC Itraconazole (Sporanox) 200 mg DAILY@0800 PO 05/22/19 10:00 05/29/19 09:59 DC 05/28/19 09:25 Lorazepam (Ativan) 1 mg STAT STAT PO 05/22/19 14:44 05/22/19 14:45 Cancel Lorazepam (Ativan) 1 mg TID PRN PO ANXIETY 05/22/19 14:45 Cancel Magnesium Hydroxide (Milk Of Magnesia) 30 ml DAILYPRN PRN PO CONSTIPATION 05/21/19 18:45 Miscellaneous (Unresolved Clarification Entry) SEE LABEL COMMENTS DAILY XX 06/19/19 09:00 06/20/19 12:02 DC Olanzapine (ZyPREXA ZYDIS) 5 mg BID PO 06/03/19 21:00 Olanzapine (ZyPREXA ZYDIS) 5 mg Q6HP PRN PO ANXIETY/AGITATION 05/21/19 18:45 Paliperidone (Invega) 3 mg BID PO 05/21/19 21:00 05/27/19 10:56 DC 05/27/19 08:59 Paliperidone (Invega) 9 mg QHS PO 05/27/19 21:00 06/03/19 19:34 DC 06/01/19 21:43 Trazodone HCl (Desyrel) 50 mg QHSP PRN PO INSOMNIA 05/21/19 18:45 06/22/19 01:39 Allergies Coded Allergies: Penicillins (Verified Allergy, Severe, hives, 05/21/19) RAMIRO VANN DO Jun 23, 2019 10:14
[2019-06-24 06:40] VITALS: BP 110/75
[2019-06-24] MEDS: OLANZapine ORAL DISINTEGRATING TAB 5MG PO SCH ×2 (09:00→20:34)
--- NOTE | 2019-06-24 16:39 | MHIPNPDOC ---
[facility] Progress Note Progress Note Inpatient Progress Note Efren Bettencourt MRN: N/A Date of : N/A Date of Service: 06/24/2019 History of Present Illness The patient is a 48-year-old man who previously was admitted to the inpatient unit in 2018 and transferred last time to [place], presented initially on a pickup order as he had been living with his sister and he had become increasingly bizarre, decompensated, not taking his medications, becoming verbally and physically aggressive. He is noted to be unkempt and had been staring into the window on initial assessment in the ER, fairly psychotic. Interval History Patient is attempted to be met with today, however, he is still quite distorted and does not answer questions. He still has difficulty urinating around the unit, distorted and staring blankly into space. He does respond at times, but is essentially nonverbal. He has had some behavioral problems the previous evening, engaging in unusual and inappropriate behavior. A female staff remains on a one-to-one in order to prevent him from going into female peers rooms. Review Of Systems Declines to answer. Psychotherapy None on this visit. Vital Signs Reviewed. Mental Status Examination General: Poor hygiene Speech: Mute Thought processes: Unknown MSK: Smooth and coordinated gait, no signs of tremors or involuntary orofacial movements Thought content: Unknown Abstract reasoning, and computation: Unknown Description of associations: Unknown Description of abnormal or psychotic thoughts: Unknown Judgment: Impaired Insight: Impaired Orientation: Appears alert Cognition: Grossly normal Recent and remote memory: Intact Attention span and concentration: Intact Fund of knowledge: Adequate Mood: "..." Affect: Flat with no reactivity Diagnoses Schizophrenia. Assessment and Plan Schizophrenia: Continue to offer Zyprexa Zydis 5 mg BID. Treatment over objection will continue to be pursued. Disposition Treatment over objection being pursued due to severe impairment in self-care putting the patient in danger of . Time Spent 15 minutes [id number]. Vital Signs Vital Signs Date Time Temp Pulse Resp B/P (MAP) Pulse Ox O2 Delivery O2 Flow Rate FiO2 06/24/19 06:40 98.0 66 14 110/75 (87) 06/23/19 08:01 Room Air 06/21/19 16:27 97 Current Medications Current Medications Medications (Trade) Dose Ordered Sig/Ana Route PRN Reason Start Time Stop Time Status Last Admin Dose Admin Acetaminophen (Tylenol Tab) 650 mg Q6HP PRN PO HEADACHE or DISCOMFORT 05/21/19 18:45 Al Hydrox/Mg Hydrox/Simethicone (Mylanta) 30 ml Q4HP PRN PO HEARTBURN/INDIGESTION 05/21/19 18:45 Fluoxetine HCl (PROzac) 10 mg DAILY PO 05/23/19 09:00 06/22/19 11:05 DC 06/01/19 09:15 Home Med (Med Rec Complete!) ASDIRECTED XX 05/21/19 18:00 05/21/19 17:58 DC Home Med (Med Rec Complete!) ASDIRECTED XX 05/21/19 19:30 05/21/19 19:31 DC Itraconazole (Sporanox) 200 mg DAILY@0800 PO 05/22/19 10:00 05/29/19 09:59 DC 05/28/19 09:25 Lorazepam (Ativan) 1 mg STAT STAT PO 05/22/19 14:44 05/22/19 14:45 Cancel Lorazepam (Ativan) 1 mg TID PRN PO ANXIETY 05/22/19 14:45 Cancel Magnesium Hydroxide (Milk Of Magnesia) 30 ml DAILYPRN PRN PO CONSTIPATION 05/21/19 18:45 Miscellaneous (Unresolved Clarification Entry) SEE LABEL COMMENTS DAILY XX 06/19/19 09:00 06/20/19 12:02 DC Olanzapine (ZyPREXA ZYDIS) 5 mg BID PO 06/03/19 21:00 Olanzapine (ZyPREXA ZYDIS) 5 mg Q6HP PRN PO ANXIETY/AGITATION 05/21/19 18:45 Paliperidone (Invega) 3 mg BID PO 05/21/19 21:00 05/27/19 10:56 DC 05/27/19 08:59 Paliperidone (Invega) 9 mg QHS PO 05/27/19 21:00 06/03/19 19:34 DC 06/01/19 21:43 Trazodone HCl (Desyrel) 50 mg QHSP PRN PO INSOMNIA 05/21/19 18:45 06/22/19 01:39 Allergies Coded Allergies: Penicillins (Verified Allergy, Severe, hives, 05/21/19) RAMIRO VANN DO Jun 24, 2019 16:39
[2019-06-24 18:00] VITALS: BP 132/72
[2019-06-25 06:50] VITALS: BP 117/73
--- NOTE | 2019-06-25 07:16 | MHIPNPDOC ---
[facility] Progress Note Progress Note Inpatient Progress Note Efren Bettencourt MRN: N/A Date of : N/A Date of Service: 06/25/2019 History of Present Illness The patient is a 48-year-old man who previously was admitted to the inpatient unit in 2018 and transferred last time to [place], presented initially on a pickup order as he had been living with his sister and he had become increasingly bizarre, decompensated, not taking his medications, becoming verbally and physically aggressive. He is noted to be unkempt and had been staring into the window on initial assessment in the ER, fairly psychotic. Interval History The patient declined to go to court today. I attempted to meet with him, however, he still remains mute and does not answer any of my questions. The treatment over objection was granted and I informed the patient that it had been discussed with him as much as I could that he'd need to take the oral medication or he'd be required to take the medication by injection. He still remains mute and urinates around his room, bizarre, still on a 1:1, but has had no major issues going into others' rooms in the last few days. Review Of Systems Declines to answer. Psychotherapy None on this visit. Vital Signs Reviewed. Mental Status Examination General: Poor hygiene Speech: Mute Thought processes: Unknown MSK: Smooth and coordinated gait, no signs of tremors or involuntary orofacial movements Thought content: Unknown Abstract reasoning, and computation: Unknown Description of associations: Unknown Description of abnormal or psychotic thoughts: Unknown Judgment: Impaired Insight: Impaired Orientation: Appears alert Cognition: Grossly normal Recent and remote memory: Intact Attention span and concentration: Intact Fund of knowledge: Adequate Mood: "..." Affect: Flat with no reactivity Diagnoses Schizophrenia. Assessment and Plan Schizophrenia: Start Invega 3 mg nightly with injection alternative as Zyprexa 10 mg IM. Disposition Patient will need a further inpatient admission to treat his severely impairing psychosis. He's court ordered to continue with treatment, will pursue long-term treatment at [place]. Time Spent 15 minutes [id number], 60 minutes coordinating care Friday Vital Signs Vital Signs Date Time Temp Pulse Resp B/P (MAP) Pulse Ox O2 Delivery O2 Flow Rate FiO2 06/25/19 06:50 98.5 74 14 117/73 (88) Room Air 06/21/19 16:27 97 Current Medications Current Medications Medications (Trade) Dose Ordered Sig/Ana Route PRN Reason Start Time Stop Time Status Last Admin Dose Admin Acetaminophen (Tylenol Tab) 650 mg Q6HP PRN PO HEADACHE or DISCOMFORT 05/21/19 18:45 Al Hydrox/Mg Hydrox/Simethicone (Mylanta) 30 ml Q4HP PRN PO HEARTBURN/INDIGESTION 05/21/19 18:45 Fluoxetine HCl (PROzac) 10 mg DAILY PO 05/23/19 09:00 06/22/19 11:05 DC 06/01/19 09:15 Home Med (Med Rec Complete!) ASDIRECTED XX 05/21/19 18:00 05/21/19 17:58 DC Home Med (Med Rec Complete!) ASDIRECTED XX 05/21/19 19:30 05/21/19 19:31 DC Itraconazole (Sporanox) 200 mg DAILY@0800 PO 05/22/19 10:00 05/29/19 09:59 DC 05/28/19 09:25 Lorazepam (Ativan) 1 mg STAT STAT PO 05/22/19 14:44 05/22/19 14:45 Cancel Lorazepam (Ativan) 1 mg TID PRN PO ANXIETY 05/22/19 14:45 Cancel Magnesium Hydroxide (Milk Of Magnesia) 30 ml DAILYPRN PRN PO CONSTIPATION 05/21/19 18:45 Miscellaneous (Unresolved Clarification Entry) SEE LABEL COMMENTS DAILY XX 06/19/19 09:00 06/20/19 12:02 DC Olanzapine (ZyPREXA ZYDIS) 5 mg BID PO 06/03/19 21:00 Olanzapine (ZyPREXA ZYDIS) 5 mg Q6HP PRN PO ANXIETY/AGITATION 05/21/19 18:45 Paliperidone (Invega) 3 mg BID PO 05/21/19 21:00 05/27/19 10:56 DC 05/27/19 08:59 Paliperidone (Invega) 9 mg QHS PO 05/27/19 21:00 06/03/19 19:34 DC 06/01/19 21:43 Trazodone HCl (Desyrel) 50 mg QHSP PRN PO INSOMNIA 05/21/19 18:45 06/22/19 01:39 Allergies Coded Allergies: Penicillins (Verified Allergy, Severe, hives, 05/21/19) RAMIRO VANN DO Jun 25, 2019 07:16
[2019-06-25] MEDS: OLANZapine ORAL DISINTEGRATING TAB 5MG PO SCH (09:00)
[2019-06-25] MEDS: PALIPERIDONE 3 MG ER TAB (INVEGA) PO SCH (21:45)
[2019-06-25] MEDS: OLANZapine INTRAMUSCULAR 10 MG VIAL (S0166) IM SCH (22:07)
[2019-06-26 07:35] VITALS: BP 138/70
[2019-06-26] MEDS ORDERED: PALIPERIDONE 3 MG ER TAB (INVEGA) PO SCH (09:00)
[2019-06-26 18:00] VITALS: BP 92/63
[2019-06-26] MEDS: OLANZapine INTRAMUSCULAR 10 MG VIAL (S0166) IM SCH (21:00)
[2019-06-26] MEDS: PALIPERIDONE 3 MG ER TAB (INVEGA) PO SCH (21:39)
[2019-06-27 06:30] VITALS: BP 99/61
[2019-06-27 15:26] VITALS: BP 99/59
[2019-06-27] MEDS: PALIPERIDONE 3 MG ER TAB (INVEGA) PO SCH (20:17)
[2019-06-27] MEDS: OLANZapine INTRAMUSCULAR 10 MG VIAL (S0166) IM SCH (20:18)
[2019-06-28 06:38] VITALS: BP 108/57
--- NOTE | 2019-06-28 10:20 | MHIPNPDOC ---
[facility] Progress Note Progress Note Inpatient Progress Note Efren Bettencourt MRN: N/A Date of : N/A Date of Service: 06/28/2019 History of Present Illness The patient is a 48-year-old man who previously was admitted to the inpatient unit in 2018 and transferred last time to [place], presented initially on a pickup order as he had been living with his sister and he had become increasingly bizarre, decompensated, not taking his medications, becoming verbally and physically aggressive. He is noted to be unkempt and had been staring into the window on initial assessment in the ER, fairly psychotic. Interval History Attempted to meet with patient, he refused to meet with me again and did not talk. He's notably per nursing been more talkative, he is taking his medications after initially getting an injection of olanzapine per his treatment over objection. He reportedly has become more talkative and more able to engage in basic activities of daily living, still requires significant prompting for showering and other hygiene activities. He notably has been talking more and making unusual and bizarre sexual statements, previously being completely silent when approached. He's had some notable behavioral statements as mentioned above, but no major behavioral issues. No needing for any coding over the weekend and has been generally isolative to his room. Review Of Systems Declines to answer. Psychotherapy None on this visit. Vital Signs Reviewed. Mental Status Examination General: Poor hygiene Speech: Mute Thought processes: Unknown MSK: Smooth and coordinated gait, no signs of tremors or involuntary orofacial movements Thought content: Unknown Abstract reasoning, and computation: Unknown Description of associations: Unknown Description of abnormal or psychotic thoughts: Unknown Judgment: Impaired Insight: Impaired Orientation: Appears alert Cognition: Grossly normal Recent and remote memory: Intact Attention span and concentration: Intact Fund of knowledge: Adequate Mood: "..." Affect: Flat with no reactivity Diagnoses Schizophrenia. Assessment and Plan Schizophrenia: Increase Invega to 6 mg nightly with treatment over objection 10 mg IM of Zyprexa. Disposition Patient will need a further inpatient admission to treat his severely impairing psychosis. He's court ordered to continue with treatment, will pursue long-term treatment at [place]. Time Spent 10 minutes. Friday Vital Signs Vital Signs Date Time Temp Pulse Resp B/P (MAP) Pulse Ox O2 Delivery O2 Flow Rate FiO2 06/28/19 06:38 97.6 76 16 108/57 (74) 06/25/19 06:50 Room Air Current Medications Current Medications Medications (Trade) Dose Ordered Sig/Ana Route PRN Reason Start Time Stop Time Status Last Admin Dose Admin Acetaminophen (Tylenol Tab) 650 mg Q6HP PRN PO HEADACHE or DISCOMFORT 05/21/19 18:45 Al Hydrox/Mg Hydrox/Simethicone (Mylanta) 30 ml Q4HP PRN PO HEARTBURN/INDIGESTION 05/21/19 18:45 Fluoxetine HCl (PROzac) 10 mg DAILY PO 05/23/19 09:00 06/22/19 11:05 DC 06/01/19 09:15 Home Med (Med Rec Complete!) ASDIRECTED XX 05/21/19 18:00 05/21/19 17:58 DC Home Med (Med Rec Complete!) ASDIRECTED XX 05/21/19 19:30 05/21/19 19:31 DC Itraconazole (Sporanox) 200 mg DAILY@0800 PO 05/22/19 10:00 05/29/19 09:59 DC 05/28/19 09:25 Lorazepam (Ativan) 1 mg STAT STAT PO 05/22/19 14:44 05/22/19 14:45 Cancel Lorazepam (Ativan) 1 mg TID PRN PO ANXIETY 05/22/19 14:45 Cancel Magnesium Hydroxide (Milk Of Magnesia) 30 ml DAILYPRN PRN PO CONSTIPATION 05/21/19 18:45 Miscellaneous (Unresolved Clarification Entry) SEE LABEL COMMENTS DAILY XX 06/19/19 09:00 06/20/19 12:02 DC Olanzapine (ZyPREXA ZYDIS) 5 mg BID PO 06/03/19 21:00 06/25/19 18:45 DC Olanzapine (ZyPREXA ZYDIS) 5 mg Q6HP PRN PO ANXIETY/AGITATION 05/21/19 18:45 Olanzapine (Zyprexa Intramuscular) 10 mg QHS IM 06/25/19 21:00 06/25/19 22:07 Paliperidone (Invega) 3 mg BID PO 05/21/19 21:00 05/27/19 10:56 DC 05/27/19 08:59 Paliperidone (Invega) 3 mg QAM PO 11/9/19 09:00 06/25/19 21:47 DC Paliperidone (Invega) 3 mg QHS PO 06/25/19 21:45 06/27/19 20:17 Paliperidone (Invega) 9 mg QHS PO 05/27/19 21:00 06/03/19 19:34 DC 06/01/19 21:43 Trazodone HCl (Desyrel) 50 mg QHSP PRN PO INSOMNIA 05/21/19 18:45 06/22/19 01:39 Allergies Coded Allergies: Penicillins (Verified Allergy, Severe, hives, 05/21/19) RAMIRO AVNN DO Jun 28, 2019 10:20
[2019-06-28 18:38] VITALS: BP 89/55
[2019-06-28] MEDS: OLANZapine INTRAMUSCULAR 10 MG VIAL (S0166) IM SCH (21:00)
[2019-06-28] MEDS: PALIPERIDONE 3 MG ER TAB (INVEGA) PO SCH (21:48)
[2019-06-29 06:33] VITALS: BP 101/58
[2019-06-29] MEDS ORDERED: MAALOX 30 ML SUSP *UDC PO PRN (06:45)
[2019-06-29] MEDS ORDERED: NICOTINE 21MG/24HR 1 EA TRANSDERMAL TD PRN (06:45)
[2019-06-29] MEDS ORDERED: MOM 30ML SUSPENSION UDC PO PRN (06:45)
[2019-06-29] MEDS ORDERED: ACETAMINOPHEN TAB 650MG DOSE (2X325MG) PO PRN (06:45)
[2019-06-29] MEDS ORDERED: OLANZapine ORAL DISINTEGRATING TAB 5MG PO PRN (06:45)
[2019-06-29] MEDS ORDERED: traZODone 50 MG TAB PO PRN (06:45)
--- NOTE | 2019-06-29 09:52 | MHIPNPDOC ---
[facility] Progress Note Progress Note Inpatient Progress Note Efren Bettencourt MRN: N/A Date of : N/A Date of Service: 06/29/2019 History of Present Illness The patient is a 48-year-old man who previously was admitted to the inpatient unit in 2018 and transferred last time to [place], presented initially on a pickup order as he had been living with his sister and he had become increasingly bizarre, decompensated, not taking his medications, becoming verbally and physically aggressive. He is noted to be unkempt and had been staring into the window on initial assessment in the ER, fairly psychotic. Interval History The patient is attempted to be met with today. He reportedly is more talkative to others, but appears to be quite angry with his provider as he has been forced to take his medications. On post questions whether he is having any side effects, he refused to answer, shifting his attentional way for me. He appears to be continually improving, talking more and engaging in some small activities of daily living. He hasn't had any more incidences of wandering into others rooms and has had notably less urination in his room. He still has difficulty attending to even the most basic of his needs and has significant difficulty being made to shower. He has had no major behavioral problems overnight. Review Of Systems Declines to answer. Psychotherapy None on this visit. Vital Signs Reviewed. Mental Status Examination General: Poor hygiene Speech: Mute Thought processes: Unknown MSK: Smooth and coordinated gait, no signs of tremors or involuntary orofacial movements Thought content: Unknown Abstract reasoning, and computation: Unknown Description of associations: Unknown Description of abnormal or psychotic thoughts: Unknown Judgment: Impaired Insight: Impaired Orientation: Appears alert Cognition: Grossly normal Recent and remote memory: Intact Attention span and concentration: Intact Fund of knowledge: Adequate Mood: "..." Affect: Flat with no reactivity Diagnoses Schizophrenia. Assessment and Plan Schizophrenia: Increase Invega to 6 mg nightly with treatment over objection 10 mg IM of Zyprexa. Disposition Patient will need a further inpatient admission to treat his severely impairing psychosis. He's court ordered to continue with treatment, will pursue long-term treatment at [facility]. Time Spent 10 minutes. Friday Vital Signs Vital Signs Date Time Temp Pulse Resp B/P (MAP) Pulse Ox O2 Delivery O2 Flow Rate FiO2 06/29/19 06:33 97.6 77 14 101/58 (72) Room Air Current Medications Current Medications Medications (Trade) Dose Ordered Sig/Ana Route PRN Reason Start Time Stop Time Status Last Admin Dose Admin Acetaminophen (Tylenol Tab) 650 mg Q6HP PRN PO HEADACHE or DISCOMFORT 05/21/19 18:45 Acetaminophen (Tylenol Tab) 650 mg Q6HP PRN PO HEADACHE or DISCOMFORT 06/29/19 06:45 06/29/19 07:02 DC Al Hydrox/Mg Hydrox/Simethicone (Mylanta) 30 ml Q4HP PRN PO HEARTBURN/INDIGESTION 05/21/19 18:45 Al Hydrox/Mg Hydrox/Simethicone (Mylanta) 30 ml Q4HP PRN PO HEARTBURN/INDIGESTION 06/29/19 06:45 06/29/19 07:02 DC Fluoxetine HCl (PROzac) 10 mg DAILY PO 05/23/19 09:00 06/22/19 11:05 DC 06/01/19 09:15 Home Med (Med Rec Complete!) ASDIRECTED XX 05/21/19 18:00 05/21/19 17:58 DC Home Med (Med Rec Complete!) ASDIRECTED XX 05/21/19 19:30 05/21/19 19:31 DC Itraconazole (Sporanox) 200 mg DAILY@0800 PO 05/22/19 10:00 05/29/19 09:59 DC 05/28/19 09:25 Lorazepam (Ativan) 1 mg STAT STAT PO 05/22/19 14:44 05/22/19 14:45 Cancel Lorazepam (Ativan) 1 mg TID PRN PO ANXIETY 05/22/19 14:45 Cancel Magnesium Hydroxide (Milk Of Magnesia) 30 ml DAILYPRN PRN PO CONSTIPATION 05/21/19 18:45 Magnesium Hydroxide (Milk Of Magnesia) 30 ml DAILYPRN PRN PO CONSTIPATION 06/29/19 06:45 06/29/19 07:02 DC Miscellaneous (Unresolved Clarification Entry) SEE LABEL COMMENTS DAILY XX 06/19/19 09:00 06/20/19 12:02 DC Nicotine (Nicoderm Cq 21mg) 1 patch DAILY PRN TD NICOTINE WITHDRAWAL 06/29/19 06:45 Cancel Olanzapine (ZyPREXA ZYDIS) 5 mg BID PO 06/03/19 21:00 06/25/19 18:45 DC Olanzapine (ZyPREXA ZYDIS) 5 mg Q6HP PRN PO ANXIETY/AGITATION 05/21/19 18:45 Olanzapine (ZyPREXA ZYDIS) 5 mg Q6HP PRN PO AGITATION 06/29/19 06:45 06/29/19 07:02 DC Olanzapine (Zyprexa Intramuscular) 10 mg QHS IM 06/25/19 21:00 06/25/19 22:07 Paliperidone (Invega) 3 mg BID PO 05/21/19 21:00 05/27/19 10:56 DC 05/27/19 08:59 Paliperidone (Invega) 3 mg QAM PO 06/26/19 09:00 06/25/19 21:47 DC Paliperidone (Invega) 3 mg QHS PO 06/25/19 21:45 06/28/19 12:55 DC 06/27/19 20:17 Paliperidone (Invega) 6 mg QHS PO 06/28/19 21:00 06/28/19 21:48 Paliperidone (Invega) 9 mg QHS PO 05/27/19 21:00 06/03/19 19:34 DC 06/01/19 21:43 Trazodone HCl (Desyrel) 50 mg QHSP PRN PO INSOMNIA 05/21/19 18:45 06/22/19 01:39 Trazodone HCl (Desyrel) 50 mg QHSP PRN PO INSOMNIA 06/29/19 06:45 06/29/19 07:02 DC Allergies Coded Allergies: Penicillins (Verified Allergy, Severe, hives, 05/21/19) RAMIRO VANN DO Jun 29, 2019 09:52
[2019-06-29 16:14] VITALS: BP 100/58
[2019-06-29] MEDS: OLANZapine INTRAMUSCULAR 10 MG VIAL (S0166) IM SCH (21:00)
[2019-06-29] MEDS: PALIPERIDONE 3 MG ER TAB (INVEGA) PO SCH (21:02)
[2019-06-30 06:34] VITALS: BP 132/82
--- NOTE | 2019-06-30 10:54 | MHIPNPDOC ---
[facility] Progress Note Progress Note Inpatient Progress Note Efren Bettencourt MRN: N/A Date of : N/A Date of Service: 06/30/2019 History of Present Illness The patient is a 48-year-old man who previously was admitted to the inpatient unit in 2018 and transferred last time to [place], presented initially on a pickup order as he had been living with his sister and he had become increasingly bizarre, decompensated, not taking his medications, becoming verbally and physically aggressive. He is noted to be unkempt and had been staring into the window on initial assessment in the ER, fairly psychotic. Interval History The patient was attempted to be met with today, however he refuses to meet. When asked about any questions, he walks away from this provider. Staff have noticed that he has become more talkative and more engaged, able to order food at times, however he requires significant assistance. He has had no behavioral problems overnight, but still remains highly distorted and urinates on the side of his room. Review Of Systems Declines to answer. Psychotherapy None on this visit. Vital Signs Reviewed. Mental Status Examination General: Poor hygiene Speech: Mute Thought processes: Unknown MSK: Smooth and coordinated gait, no signs of tremors or involuntary orofacial movements Thought content: Unknown Abstract reasoning, and computation: Unknown Description of associations: Unknown Description of abnormal or psychotic thoughts: Unknown Judgment: Impaired Insight: Impaired Orientation: Appears alert Cognition: Grossly normal Recent and remote memory: Intact Attention span and concentration: Intact Fund of knowledge: Adequate Mood: "..." Affect: Flat with no reactivity Diagnoses Schizophrenia. Assessment and Plan Schizophrenia: To continue Invega 6 mg nightly with [id number], 10 mg of Zyprexa if refuses. Disposition Patient will need a further inpatient admission to treat his severely impairing psychosis. He's court ordered to continue with treatment, will pursue long-term treatment at [place]. Time Spent 10 minutes. Friday Vital Signs Vital Signs Date Time Temp Pulse Resp B/P (MAP) Pulse Ox O2 Delivery O2 Flow Rate FiO2 06/30/19 06:34 97.8 60 16 132/82 (99) 06/29/19 06:33 Room Air Current Medications Current Medications Medications (Trade) Dose Ordered Sig/Ana Route PRN Reason Start Time Stop Time Status Last Admin Dose Admin Acetaminophen (Tylenol Tab) 650 mg Q6HP PRN PO HEADACHE or DISCOMFORT 05/21/19 18:45 Acetaminophen (Tylenol Tab) 650 mg Q6HP PRN PO HEADACHE or DISCOMFORT 06/29/19 06:45 06/29/19 07:02 DC Al Hydrox/Mg Hydrox/Simethicone (Mylanta) 30 ml Q4HP PRN PO HEARTBURN/INDIGESTION 05/21/19 18:45 Al Hydrox/Mg Hydrox/Simethicone (Mylanta) 30 ml Q4HP PRN PO HEARTBURN/INDIGESTION 06/29/19 06:45 06/29/19 07:02 DC Fluoxetine HCl (PROzac) 10 mg DAILY PO 05/23/19 09:00 06/22/19 11:05 DC 06/01/19 09:15 Home Med (Med Rec Complete!) ASDIRECTED XX 05/21/19 18:00 05/21/19 17:58 DC Home Med (Med Rec Complete!) ASDIRECTED XX 05/21/19 19:30 05/21/19 19:31 DC Itraconazole (Sporanox) 200 mg DAILY@0800 PO 05/22/19 10:00 05/29/19 09:59 DC 05/28/19 09:25 Lorazepam (Ativan) 1 mg STAT STAT PO 05/22/19 14:44 05/22/19 14:45 Cancel Lorazepam (Ativan) 1 mg TID PRN PO ANXIETY 05/22/19 14:45 Cancel Magnesium Hydroxide (Milk Of Magnesia) 30 ml DAILYPRN PRN PO CONSTIPATION 05/21/19 18:45 Magnesium Hydroxide (Milk Of Magnesia) 30 ml DAILYPRN PRN PO CONSTIPATION 06/29/19 06:45 06/29/19 07:02 DC Miscellaneous (Unresolved Clarification Entry) SEE LABEL COMMENTS DAILY XX 06/19/19 09:00 06/20/19 12:02 DC Nicotine (Nicoderm Cq 21mg) 1 patch DAILY PRN TD NICOTINE WITHDRAWAL 06/29/19 06:45 Cancel Olanzapine (ZyPREXA ZYDIS) 5 mg BID PO 06/03/19 21:00 06/25/19 18:45 DC Olanzapine (ZyPREXA ZYDIS) 5 mg Q6HP PRN PO ANXIETY/AGITATION 05/21/19 18:45 Olanzapine (ZyPREXA ZYDIS) 5 mg Q6HP PRN PO AGITATION 06/29/19 06:45 06/29/19 07:02 DC Olanzapine (Zyprexa Intramuscular) 10 mg QHS IM 06/25/19 21:00 06/25/19 22:07 Paliperidone (Invega) 3 mg BID PO 05/21/19 21:00 05/27/19 10:56 DC 05/27/19 08:59 Paliperidone (Invega) 3 mg QAM PO 06/26/19 09:00 06/25/19 21:47 DC Paliperidone (Invega) 3 mg QHS PO 06/25/19 21:45 06/28/19 12:55 DC 06/27/19 20:17 Paliperidone (Invega) 6 mg QHS PO 06/28/19 21:00 06/29/19 21:02 Paliperidone (Invega) 9 mg QHS PO 05/27/19 21:00 06/03/19 19:34 DC 06/01/19 21:43 Trazodone HCl (Desyrel) 50 mg QHSP PRN PO INSOMNIA 05/21/19 18:45 06/22/19 01:39 Trazodone HCl (Desyrel) 50 mg QHSP PRN PO INSOMNIA 06/29/19 06:45 06/29/19 07:02 DC Allergies Coded Allergies: Penicillins (Verified Allergy, Severe, hives, 05/21/19) RAMIRO VANN DO Jun 30, 2019 10:54
[2019-06-30 16:30] VITALS: BP 103/58
[2019-06-30] MEDS: PALIPERIDONE 3 MG ER TAB (INVEGA) PO SCH (20:54)
[2019-06-30] MEDS: OLANZapine INTRAMUSCULAR 10 MG VIAL (S0166) IM SCH (21:00)
[2019-07-01 06:21] VITALS: BP 126/71
[2019-07-01 15:35] VITALS: BP 88/49
--- NOTE | 2019-07-01 16:21 | MHIPN ---
DATE: 07/01/2019 VITAL SIGNS: Temperature 97.1, pulse 70, respirations 16, blood pressure 126/71. CURRENT MEDICATIONS: - Invega 6 mg nightly - trazodone 50 mg nightly as needed HISTORY OF PRESENT ILLNESS: This is a 48-year-old white male with a history of schizophrenia. Patient had been hospitalized on inpatient mental health unit (IM) back in 2017 and was transferred to [facility]. He was discharged from that facility in January but quickly decompensated. He did not take his medications upon discharge. He did not followup with outpatient treatment. Patient decompensated and was hospitalized again under the care of Dr. Sam. Patient is pending transfer back to [facility]. Patient's behavior on the unit has been inappropriate. He is urinating in public spaces. He is not responding to appropriate staff intervention. He is requiring one-on-one male supervision again. Patient minimizes his psychiatric issues, claiming that he feels sad. He is unable to give any precipitating stressors or to give any clinical history. Patient has not verbal with Dr. Sam. MENTAL STATUS EXAM: Patient's grooming and hygiene are quite poor. Patient has a big tan, which he states is new. Speech: Patient volunteers little. He is often nonresponsive. Thought processes: Patient denies psychotic symptoms, but may well be covering. Insight and judgment markedly impaired. Patient appears alert and oriented, but is minimally cooperative. Affect appears flat, but patient states that he feels sad. ASSESSMENT AND PLAN: Patient will continue on pharmacotherapy and is being sent to long-term care [facility]. DIAGNOSIS: Schizophrenia.
[2019-07-01] MEDS: PALIPERIDONE 3 MG ER TAB (INVEGA) PO SCH (21:00)
[2019-07-01] MEDS: OLANZapine INTRAMUSCULAR 10 MG VIAL (S0166) IM SCH (21:21)
[2019-07-02 07:00] VITALS: BP 103/59
--- NOTE | 2019-07-02 15:46 | MHIPN ---
DATE: 07/02/2019 VITAL SIGNS: Temperature 97.8, pulse 63, respirations 14, blood pressure 103/59. CURRENT MEDICATIONS: - paliperidone 6 mg at night, patient refused yesterday - Zyprexa 10 mg intramuscularly HISTORY OF PRESENT ILLNESS: The patient is still showing bizarre behavior, such as spreading his feces all over the floor. He is having urinary bladder accidents as well, even despite close monitoring by staff. He claims that it is accidental, which does not appear credible. The patient has no major complaints. He states that his appetite is fine. He cannot say if he sleeps well or not, he is a poor historian. He volunteers little. The patient refused his paliperidone yesterday and had to receive the intramuscular Zyprexa. The patient has been accepted to [facility] on Friday. MENTAL STATUS EXAMINATION: Grooming and hygiene are still quite poor. The patient is mostly nonresponsive to any questioning. The patient denies psychotic symptoms but appears quite paranoid and is likely covering psychotic symptoms. Insight and judgment remain markedly impaired. The patient appears alert and oriented but does not cooperate with full mental status examination. The patient's affect appears flat and blunted. He is not volunteering any suicidal thoughts. No signs of cognitive deficits. 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 DIAGNOSIS: 1. Schizophrenia. PLAN: Continue present management. Discharge Friday to [facility].
[2019-07-02 16:20] VITALS: BP 98/56
[2019-07-02] MEDS: OLANZapine INTRAMUSCULAR 10 MG VIAL (S0166) IM SCH (21:00)
[2019-07-02] MEDS: PALIPERIDONE 3 MG ER TAB (INVEGA) PO SCH (22:37)
[2019-07-03 06:02] VITALS: BP 121/67
[2019-07-03 16:24] VITALS: BP 104/60
[2019-07-03] MEDS: OLANZapine INTRAMUSCULAR 10 MG VIAL (S0166) IM SCH (21:00)
[2019-07-03] MEDS: PALIPERIDONE 3 MG ER TAB (INVEGA) PO SCH (22:04)
[2019-07-04 05:59] VITALS: BP 105/64
[2019-07-04 16:13] VITALS: BP 100/60
[2019-07-04] MEDS: PALIPERIDONE 3 MG ER TAB (INVEGA) PO SCH (21:00)
[2019-07-04] MEDS: OLANZapine INTRAMUSCULAR 10 MG VIAL (S0166) IM SCH (21:43)
--- NOTE | 2019-07-05 08:55 | MHDS ---
DATE OF ADMISSION: 05/21/2019 DATE OF DISCHARGE: VITAL SIGNS: Temperature 98.3, pulse 60, respirations 16, blood pressure 100/60. LABORATORIES: CBC and differential within normal limits except for elevated WBC at 16.5. Serum chemistry within normal limits except for a total protein at 8.3. Urine toxicology screen was negative for alcohol. Urine drug toxicology screen was negative. Diagnosis: Schizophrenia, multiple episodes, current acute DISCHARGE MEDS: Invega 6mg PO QHS CHIEF COMPLAINT: The patient was referred by his sister for being aggressive. She was afraid for her own safety. HISTORY OF PRESENT ILLNESS: This is a 48-year-old white male with a history of chronic schizophrenia, who was hospitalized last year in inpatient mental health unit with a similar presentation. During his last hospitalization, he was sent to [facility] for a long period of time, until January 2019. At that time, he was released to live with his sister. The patient did poorly upon discharge. He stopped taking his medications. He would not go to psychiatric appointments. He started to become aggressive. Attention to activities of daily living was poor. He was not showering. He showed bizarre behavior frightening to his sister. PROGRESS ON THE UNIT: The patient was uncooperative. The patient was seen by Dr. Powell and then Dr. Sam and finally by myself over the past week. The patient's behavior continued to be bizarre. He has disregard for bowel and bladder control. The patient appears apathetic with little attention to activities of daily living. The patient stares inappropriately at females making them feel uncomfortable. He has required one-on-one sitters, as he was wandering into other patient's rooms and emptying his bladder. The patient did not become involved in the milieu therapy program. There were no behavioral outbursts during his hospitalization. The patient initially refused medication. He was taken to court for treatment over objection. He was maintained on Invega 6 mg by mouth at night by Dr. Sam. The night before transfer it was found that he had been cheeking his Invega medication. Multiple doses were found in his wastebasket. Zyprexa 10 mg dosage was ordered as backup when he refuses the oral Invega. THe patient has been accepted at [facility]. They request that a stat discharge summary be done. The patient clearly can benefit from detention psychiatric care due to his treatment resistant psychosis. MENTAL STATUS EXAMINATION: The patient is alert and oriented times three. He volunteers little. Eye contact is poor. He appears to be responding to internal stimuli. He appears guarded. Grooming and hygiene are quite poor. The patient admits to feeling sad but not depressed. He denies being homicidal or suicidal. Insight and judgment appear quite impaired. No signs of organicity. ASSESSMENT: The patient clearly can benefit from detention care for his treatment resistant psychosis. PLAN: Discharge today with transfer to [facility]. JIM
== END 2019-07-05 14:15 | DRG 885 ==
LOC: M ED 12:54 → M ED INP 18:38 → M PSY 21:15
PROVIDERS: ADMIT Psychiatry & Neurology Psychiatry; ATTEND Psychiatry & Neurology Psychiatry
DX: F23 Brief psychotic disorder (principal); Z91.14 Patient's other noncompliance with medication regimen; B35.1 Tinea unguium; R41.9 Unspecified symptoms and signs involving cognitive functions and awareness; Z88.0 Allergy status to penicillin; B35.3 Tinea pedis

== ENCOUNTER 2020-02-01 14:20 | Inpatient (IN) | payer MEDICARE, MEDICAID ==
[~2020-02-01] VITALS: Ht 175.3 cm; Wt 105.1 kg
[~2020-02-01 14:20] MED LIST changes: +PALIPERIDONE PALMITATE 234MG/1.5ML INJ (INVEGA)(FREE PSY INPT ONLY) IM SCH
[2020-02-01] MEDS ORDERED: ZYPR10TA PO (14:32)
[2020-02-01] MEDS ORDERED: LASI40TA9 PO (14:32)
[2020-02-01] MEDS ORDERED: INVE234I IM (14:32)
[2020-02-01] MEDS ORDERED: ATIV1TAB10 PO (14:32)
[2020-02-01] MEDS ORDERED: COLA100C5 PO (14:32)
[2020-02-01] MEDS ORDERED: XARE20TA PO (14:32)
[2020-02-01] MEDS ORDERED: TRAZ-252 PO (14:32)
[2020-02-01 15:10] LABS: HEMATOCRIT 47.7 % (42.0-52.0); HEMOGLOBIN 15.8 g/dl (13.5-17.5); MEAN CORPUSCULAR HEMOGLOBIN 30.2 pg (27.0-33.0); MEAN CORPUSCULAR HGB CONC 33.1 g/dl (32.0-36.5); MEAN CORPUSCULAR VOLUME 91.2 fl (80.0-96.0); PLATELET COUNT, AUTOMATED 270 10^3/uL (150-450); RED BLOOD COUNT 5.23 10^6/uL (4.30-6.10); WHITE BLOOD COUNT 10.7 10^3/uL (4.0-10.0)
[2020-02-01 15:30] LABS: AMPHETAMINES LEVEL URINE NEGATIVE (NEGATIVE); BARBITURATES URINE NEGATIVE (NEGATIVE); BENZODIAZEPINES URINE NEGATIVE (NEGATIVE); CANNABINOIDS URINE NEGATIVE (NEGATIVE); COCAINE METABOLITE URINE NEGATIVE (NEGATIVE); METHADONE URINE NEGATIVE (NEGATIVE); OPIATES URINE NEGATIVE (NEGATIVE); PHENCYCLIDINE URINE NEGATIVE (NEGATIVE)
[2020-02-01 15:45] LABS: ACETAMINOPHEN LEVEL < 2.0 UG/ML (10.0-30.0); ALT/SGPT 64 U/L (12-78); BILIRUBIN,DIRECT 0.1 MG/DL (0.0-0.2); BILIRUBIN,TOTAL 0.4 MG/DL (0.2-1.0); BLOOD UREA NITROGEN 14 MG/DL (7-18); CALCIUM LEVEL 9.8 MG/DL (8.5-10.1); CARBON DIOXIDE LEVEL 26 MEQ/L (21-32); CHLORIDE LEVEL 108 MEQ/L (98-107); CREATININE FOR GFR 1.04 MG/DL (0.70-1.30); ETHYL ALCOHOL (ETHANOL) < 0.003 % (0.000-0.010); GLOMERULAR FILTRATION RATE > 60.0 (>56); GLUCOSE, FASTING 85 MG/DL (70-100); POTASSIUM SERUM 3.8 MEQ/L (3.5-5.1); SALICYLATE LEVEL 2.6 MG/DL (5.0-30.0); SODIUM LEVEL 141 MEQ/L (136-145); THYROID STIMULATING HORMONE 0.705 uIU/ML (0.358-3.740); TOTAL PROTEIN 8.2 GM/DL (6.4-8.2)
[2020-02-01] MEDS ORDERED: traZODone 50 MG TAB PO PRN (17:00)
[2020-02-01] MEDS ORDERED: MOM 30ML SUSPENSION UDC PO PRN (17:00)
[2020-02-01] MEDS ORDERED: IBUPROFEN 400 MG TAB PO PRN (17:00)
[2020-02-01] MEDS ORDERED: MAALOX 30 ML SUSP *UDC PO PRN (17:00)
[2020-02-01] MEDS ORDERED: OLANZapine ORAL DISINTEGRATING TAB 5MG PO PRN (17:30)
[2020-02-01] MEDS: LORazepam 0.5 MG TAB PO SCH (21:00)
[2020-02-01] MEDS: DOCUSATE SODIUM 100 MG CAP PO SCH (21:00)
[2020-02-01] MEDS: OLANZapine 10 MG TAB PO SCH (21:00)
[2020-02-01] MEDS: traZODone 50 MG TAB PO SCH (21:00)
[2020-02-01 21:35] VITALS: BP 148/96
[2020-02-02 05:12] VITALS: BP 138/97
[2020-02-02 06:48] VITALS: BP 138/97
[2020-02-02] MEDS: LORazepam 0.5 MG TAB PO SCH ×2 (08:07→21:03)
[2020-02-02] MEDS: FUROSEMIDE 40 MG TAB PO SCH (08:08)
[2020-02-02] MEDS: RIVAROXABAN 20 MG TAB (XARELTO) PO SCH (08:08)
[2020-02-02] MEDS: DOCUSATE SODIUM 100 MG CAP PO SCH ×2 (08:08→21:12)
[2020-02-02] MEDS: NICOTINE 21MG/24HR 1 EA TRANSDERMAL TD SCH (08:09)
[2020-02-02] MEDS ORDERED: PALIPERIDONE PALMITATE 234MG/1.5ML INJ (INVEGA)(FREE PSY INPT ONLY) IM SCH (09:00)
--- NOTE | 2020-02-02 10:31 | MHHPEPDOC ---
[facility] History & Physical History and Physical DATE OF ADMISSION: Feb 01, 2020 at 16:49 Rajni Sparrow presents today for concerns regarding his medication. He is low on his medications. His family member notes he wasnt taking his medications and had to be admitted to the hospital. His family member mentions his side effects include swelling and numbness in his head. PsychHx: AOT currently, no other changes Fmhx: uncelar Sochx: no changes known. ROS Neurological: +Numbness (in ), +Numbness (in head) Musculoskeletal: +Swelling (of ) Psychiatric: Normal Objective Appearance: Poor hygiene. Well nourished. Behavior: Minimally interactive. Speech: Speech is sparse and without much production. Cognition: Generally unengaged and appearas to be looking at other stimuli. Assessment F20.9 Schizophrenia, unspecified Plan Patient is likely decompensating. Restart medications. Medical staff will examine patient to determine if he needs anymore judicious t reatment for management of side effects. However, noncompliance is likely posing a major problem for him right now. PROBLEM LIST: 1. Altered thoughts 2. Non-compliant INITIAL TREATMENT PLAN: 1. Patient was admitted on a 9.39 2. Complete history was obtained. 3. With patients permission, family will be contacted and database will be expanded. 4. Patients medication regimen will be reviewed and changed accordingly. 5. Patient will be provided with protected environment. 6. Patient will be treated with individual, group, and milieu therapies. 7. Patient will receive supportive psych-education. 8. Discharge planning will commence immediately. 9. Outpatient follow-up treatment will be strongly recommended. ESTIMATED LENGTH OF STAY: 2-7 DAYS. TIME SPENT COUNSELING AND COORDINATING INITIAL CARE: 20 minutes. Vital Signs Vital Signs Date Time Temp Pulse Resp B/P (MAP) Pulse Ox O2 Delivery O2 Flow Rate FiO2 02/02/20 06:48 96.1 105 16 138/97 (111) 96 Room Air Laboratory Data 24H Labs Laboratory Tests 2 02/01/20 14:50: Nucleated Red Blood Cells % (auto) 0.0, Anion Gap 7L, Glomerular Filtration Rate > 60.0, Calcium Level 9.8, Total Bilirubin 0.4, Direct Bilirubin 0.1, Aspartate Amino Transf (AST/SGOT) 24, Alanine Aminotransferase (ALT/SGPT) 64, Alkaline Phosphatase 67, Total Protein 8.2, Albumin 4.0, Albumin/Globulin Ratio 1.0, Thyroid Stimulating Hormone (TSH) 0.705, Salicylates Level 2.6L, Urine Opiates Screen NEGATIVE, Urine Methadone Screen NEGATIVE, Acetaminophen Level < 2.0L, Urine Barbiturates Screen NEGATIVE, Urine Phencyclidine Screen NEGATIVE, Urine Amphetamines Screen NEGATIVE, Urine Benzodiazepines Screen NEGATIVE, Urine Cocaine Metabolite Screen NEGATIVE, Urine Cannabinoids Screen NEGATIVE, Ethyl Alcohol Level < 0.003 CBC/BMP Laboratory Tests 02/01/20 14:50 Medications Scheduled Docusate Sodium (Colace) 100 Mg Capsule, 1 CAP PO BID, (Reported) Furosemide (Lasix) 40 Mg Tablet, 1 TAB PO DAILY, (Reported) Lorazepam (Ativan) 0.5 Mg Tablet, 0.5 MG PO BID, (Reported) Olanzapine (Zyprexa) 10 Mg Tablet, 10 MG PO QPM, (Reported) Paliperidone Palmitate (Invega Sustenna) 234 Mg/1.5 Ml Syringe, 234 MG IM Q30D, (Reported) PT STATES ON 02/01/20 MAY HAVE RECEIVED A WEEK AGO Rivaroxaban (Xarelto) 20 Mg Tablet, 20 MG PO DAILY, (Reported) with food Trazodone HCl (Trazodone HCl) 50 Mg Tablet, 50 MG PO QPM, (Reported) Allergies Coded Allergies: Penicillins (Verified Allergy, Severe, hives, 05/21/19) RAMIRO VANN DO Feb 02, 2020 10:31
--- NOTE | 2020-02-02 17:36 | HPEPDOC ---
General Date of Admission Feb 01, 2020 at 16:49 Date of Service: Feb 02, 2020 Chief Complaint The patient is a 49-year-old male admitted with a reason for visit of Schizophrenia. Source: Patient, Old records Exam Limitations: Clinical conditions Timing/Duration: Unsure Severity: Moderate History of Present Illness This is a 49-year-old man who sees Jose C Carmona in [place] reveals this with her sister has some long documented history of schizophrenia. Was referred by court decision to emergency room after was noted he had stopped taking his medication. Otherwise patient denies weight loss, hair loss, headache, visual changes, chest pain, shortness of breath, cough, nausea, vomiting, diarrhea, abdominal pain, muscle aches, worsening arthritis, change in mood Home Medications Scheduled Docusate Sodium (Colace) 100 Mg Capsule, 1 CAP PO BID, (Reported) Furosemide (Lasix) 40 Mg Tablet, 1 TAB PO DAILY, (Reported) Lorazepam (Ativan) 0.5 Mg Tablet, 0.5 MG PO BID, (Reported) Olanzapine (Zyprexa) 10 Mg Tablet, 10 MG PO QPM, (Reported) Paliperidone Palmitate (Invega Sustenna) 234 Mg/1.5 Ml Syringe, 234 MG IM Q30D, (Reported) PT STATES ON 02/01/20 MAY HAVE RECEIVED A WEEK AGO Rivaroxaban (Xarelto) 20 Mg Tablet, 20 MG PO DAILY, (Reported) with food Trazodone HCl (Trazodone HCl) 50 Mg Tablet, 50 MG PO QPM, (Reported) Allergies Coded Allergies: Penicillins (Verified Allergy, Severe, hives, 05/21/19) Past Medical History Medical History 1. Schizophrenia. 2. Anxiety depression. 3. Bipolar disorder 4. Psychosis. Family History Personally reviewed family history and found not pertinent Social History * Smoker: current smoker Alcohol: Denies Drugs: denies A-FIB/CHADSVASC A-FIB History Current/History of A-Fib/PAF?: No Current PO Anticoag Therapy: No Review of Systems Constitutional: Denies: Chills Eyes: Denies: Pain, Vision change ENT: Denies: Head Aches Skin: Denies: Rash, Lesions Pulmonary: Denies: Dyspnea Cardiovascular: Denies: Chest Pain Gastrointestinal: Denies: Nausea Genitourinary: Denies: Dysuria, Frequency Endocrine: Denies: Polydipsia Musculoskeletal: Denies: Neck Pain Neurological: Denies: Weakness Psych: Reports: Depression Physical Examination General Exam: Positive: Alert, Mild Distress Eye Exam: Positive: PERRLA ENT Exam: Positive: Atraumatic Neck Exam: Positive: Supple; Negative: JVD Heart Exam: Positive: Rate Normal Abdomen Exam: Positive: Normal bowel sounds Extremity Exam: Positive: Clubbing Skin Exam: Positive: Nl turgor and temperature, Other skin issue (onychomycosis of nails of barber and legs) Neuro Exam: Positive: Normal Gait Psych Exam: Positive: Anxiety; Negative: Mental status NL Vital Signs Vital Signs Date Time Temp Pulse Resp B/P (MAP) Pulse Ox O2 Delivery O2 Flow Rate FiO2 02/02/20 06:48 96.1 105 16 138/97 (111) 96 Room Air Assessment/Plan This is a 49-year-old man who sees Jose C Carmona in [place] reveals this with her sister has some long documented history of schizophrenia. Was referred by court decision to emergency room after was noted he had stopped taking his medication. Otherwise patient denies weight loss, hair loss, headache, visual changes, chest pain, shortness of breath, cough, nausea, vomiting, diarrhea, abdominal pain, muscle aches, worsening arthritis, change in mood Problems (1) Psychotic disorder Status: Acute Problem Text: Management as per psychiatry. (2) Onychomycosis Status: Chronic Problem Text: Patient was previously noncompliant to treatment Follow-up with PCP in the outpatient settings for treatment Plan / VTE VTE Prophylaxis Ordered?: No VTE Exclusion Mechanical Proph: Low Risk for VTE NUNU ROLDAN DO Feb 02, 2020 17:36
[2020-02-02] MEDS ORDERED: MIRALAX *UNIT DOSE* 17GM PACKET PO PRN (18:45)
[2020-02-02 20:00] VITALS: BP 150/75
--- NOTE | 2020-02-02 20:59 | REPVR ---
PROCEDURE INFORMATION: Exam: US Duplex Right Lower Extremity Veins, Limited Exam date and time: 02/02/2020 8:08 PM Age: 49 years old Clinical indication: Pain; Leg, lower; Right; Additional info: Dvt TECHNIQUE: Imaging protocol: Real-time Duplex ultrasound of the Right Lower Extremity with 2-D mace scale, color Doppler flow and spectral waveform analysis with image documentation. Limited exam was focused on the right lower extremity veins. COMPARISON: No relevant prior studies available. FINDINGS: Right deep veins: Unremarkable. The common femoral, femoral, proximal profunda femoral and popliteal veins are patent without thrombus. Normal Doppler waveforms. Normal compressibility and/or augmentation response. Right superficial veins: Unremarkable. Saphenofemoral junction is patent without thrombus. Soft tissues: Unremarkable. IMPRESSION: No DVT of the right lower extremity veins. Electronically signed by: Dipesh Leon On 02/02/2020 20:58:51 PM
[2020-02-02] MEDS: OLANZapine 10 MG TAB PO SCH (21:03)
[2020-02-02] MEDS: traZODone 50 MG TAB PO SCH (21:03)
[2020-02-03] MEDS: NICOTINE 21MG/24HR 1 EA TRANSDERMAL TD SCH (08:59)
[2020-02-03] MEDS: FUROSEMIDE 40 MG TAB PO SCH (09:12)
[2020-02-03] MEDS: LORazepam 0.5 MG TAB PO SCH ×2 (09:12→21:52)
[2020-02-03] MEDS: DOCUSATE SODIUM 100 MG CAP PO SCH ×2 (09:12→21:52)
[2020-02-03] MEDS: RIVAROXABAN 20 MG TAB (XARELTO) PO SCH (09:12)
--- NOTE | 2020-02-03 09:25 | MHIPNPDOC ---
[facility] Progress Note Progress Note Unable to see patient as telehealth couldn't be arranged after multiple attempts to reach unit, discussed with rubber stamps and dies supervisor, unable to complete assessment. Vital Signs Vital Signs Date Time Temp Pulse Resp B/P (MAP) Pulse Ox O2 Delivery O2 Flow Rate FiO2 02/02/20 20:00 97.8 83 20 150/75 (100) 02/02/20 06:48 96 Room Air Current Medications Current Medications Medications (Trade) Dose Ordered Sig/Ana Route PRN Reason Start Time Stop Time Status Last Admin Dose Admin Al Hydrox/Mg Hydrox/Simethicone (Mylanta) 30 ml Q4HP PRN PO HEARTBURN/INDIGESTION 02/01/20 17:00 Docusate Sodium (Colace) 100 mg BID PO 02/01/20 21:00 02/03/20 09:12 Furosemide (Lasix) 40 mg DAILY PO 02/02/20 09:00 02/03/20 09:12 Home Med (Med Rec Complete!) ASDIRECTED XX 02/01/20 18:15 02/01/20 18:17 DC Ibuprofen (Advil) 400 mg Q6HP PRN PO PAIN 02/01/20 17:00 Lorazepam (Ativan) 0.5 mg BID PO 02/01/20 21:00 02/03/20 09:12 Magnesium Hydroxide (Milk Of Magnesia) 30 ml DAILYPRN PRN PO CONSTIPATION 02/01/20 17:00 Nicotine (Nicoderm Cq 21mg) 1 patch DAILY TD 02/02/20 09:00 Olanzapine (ZyPREXA ZYDIS) 5 mg Q4HP PRN PO ANXIETY/AGITATION 02/01/20 17:30 Olanzapine (ZyPREXA) 10 mg QHS PO 02/01/20 21:00 02/02/20 21:03 Paliperidone Palmitate (Invega Sustenna) 234 mg Q30D IM 02/01/20 09:00 Cancel Paliperidone Palmitate (Invega Sustenna) 234 mg Q30D IM 02/02/20 09:00 02/02/20 07:43 Polyethylene Glycol (Miralax) 1 pkt DAILYPRN PRN PO CONSTIPATION 02/02/20 18:45 Rivaroxaban (Xarelto) 20 mg DAILY@0800 PO 02/02/20 08:00 02/03/20 09:12 Trazodone HCl (Desyrel) 50 mg QHS PO 02/01/20 21:00 02/02/20 21:03 Trazodone HCl (Desyrel) 50 mg QHSP PRN PO INSOMNIA 02/01/20 17:00 02/01/20 17:41 DC Allergies Coded Allergies: Penicillins (Verified Allergy, Severe, hives, 05/21/19) RAMIRO VANN DO Feb 03, 2020 09:25
[2020-02-03 17:20] VITALS: BP 135/61
[2020-02-03] MEDS: traZODone 50 MG TAB PO SCH (21:52)
[2020-02-03] MEDS: OLANZapine 10 MG TAB PO SCH (21:52)
[2020-02-04 06:59] VITALS: BP 127/77
[2020-02-04] MEDS: NICOTINE 21MG/24HR 1 EA TRANSDERMAL TD SCH (09:00)
[2020-02-04] MEDS: LORazepam 0.5 MG TAB PO SCH ×2 (09:51→20:11)
[2020-02-04] MEDS: RIVAROXABAN 20 MG TAB (XARELTO) PO SCH (09:51)
[2020-02-04] MEDS: DOCUSATE SODIUM 100 MG CAP PO SCH ×2 (09:51→20:11)
[2020-02-04] MEDS: FUROSEMIDE 40 MG TAB PO SCH (09:51)
--- NOTE | 2020-02-04 10:03 | MHIPNPDOC ---
[facility] Progress Note Progress Note The patient was seen on 02/04/20. HPI: Efren does not present today. Patient refuses to meet with provider today. He is still quite psychotic, although he smiles more at times. Patient has been generally non-compliant with his treatment. Objective Assessment F20.9 Schizophrenia, unspecified Plan Continue current medications at home. Patient will hopefully resolve better as non-compliance is the primary reason for his presentation and likely coming off medications for a short time. Coordinate with assisted outpatient treatment team to determine ultimate disposition. Vital Signs Vital Signs Date Time Temp Pulse Resp B/P (MAP) Pulse Ox O2 Delivery O2 Flow Rate FiO2 02/04/20 06:59 98.5 56 14 127/77 (94) 95 Room Air Current Medications Current Medications Medications (Trade) Dose Ordered Sig/Ana Route PRN Reason Start Time Stop Time Status Last Admin Dose Admin Al Hydrox/Mg Hydrox/Simethicone (Mylanta) 30 ml Q4HP PRN PO HEARTBURN/INDIGESTION 02/01/20 17:00 Docusate Sodium (Colace) 100 mg BID PO 02/01/20 21:00 02/04/20 09:51 Furosemide (Lasix) 40 mg DAILY PO 02/02/20 09:00 02/04/20 09:51 Home Med (Med Rec Complete!) ASDIRECTED XX 02/01/20 18:15 02/01/20 18:17 DC Ibuprofen (Advil) 400 mg Q6HP PRN PO PAIN 02/01/20 17:00 Lorazepam (Ativan) 0.5 mg BID PO 02/01/20 21:00 02/04/20 09:51 Magnesium Hydroxide (Milk Of Magnesia) 30 ml DAILYPRN PRN PO CONSTIPATION 02/01/20 17:00 Nicotine (Nicoderm Cq 21mg) 1 patch DAILY TD 02/02/20 09:00 Olanzapine (ZyPREXA ZYDIS) 5 mg Q4HP PRN PO ANXIETY/AGITATION 02/01/20 17:30 Olanzapine (ZyPREXA) 10 mg QHS PO 02/01/20 21:00 02/03/20 21:52 Paliperidone Palmitate (Invega Sustenna) 234 mg Q30D IM 02/01/20 09:00 Cancel Paliperidone Palmitate (Invega Sustenna) 234 mg Q30D IM 02/02/20 09:00 02/02/20 07:43 Polyethylene Glycol (Miralax) 1 pkt DAILYPRN PRN PO CONSTIPATION 02/02/20 18:45 Rivaroxaban (Xarelto) 20 mg DAILY@0800 PO 02/02/20 08:00 02/04/20 09:51 Trazodone HCl (Desyrel) 50 mg QHS PO 02/01/20 21:00 02/03/20 21:52 Trazodone HCl (Desyrel) 50 mg QHSP PRN PO INSOMNIA 02/01/20 17:00 02/01/20 17:41 DC Allergies Coded Allergies: Penicillins (Verified Allergy, Severe, hives, 05/21/19) RAMIRO VANN DO Feb 04, 2020 10:03
[2020-02-04 15:47] VITALS: BP 116/72
[2020-02-04] MEDS: OLANZapine 10 MG TAB PO SCH (20:11)
[2020-02-04] MEDS: traZODone 50 MG TAB PO SCH (20:11)
[2020-02-05 06:34] VITALS: BP 120/70
[2020-02-05] MEDS: RIVAROXABAN 20 MG TAB (XARELTO) PO SCH (07:51)
[2020-02-05] MEDS: LORazepam 0.5 MG TAB PO SCH ×2 (08:44→22:04)
[2020-02-05] MEDS: DOCUSATE SODIUM 100 MG CAP PO SCH ×2 (08:44→22:04)
[2020-02-05] MEDS: FUROSEMIDE 40 MG TAB PO SCH (08:45)
[2020-02-05] MEDS: NICOTINE 21MG/24HR 1 EA TRANSDERMAL TD SCH (08:50)
[2020-02-05 15:34] VITALS: BP 115/69
[2020-02-05] MEDS: traZODone 50 MG TAB PO SCH (22:04)
[2020-02-05] MEDS: OLANZapine 10 MG TAB PO SCH (22:04)
[2020-02-06 06:11] VITALS: BP 121/64
[2020-02-06] MEDS: NICOTINE 21MG/24HR 1 EA TRANSDERMAL TD SCH (08:21)
[2020-02-06] MEDS: DOCUSATE SODIUM 100 MG CAP PO SCH ×2 (08:23→21:00)
[2020-02-06] MEDS: FUROSEMIDE 40 MG TAB PO SCH (08:23)
[2020-02-06] MEDS: LORazepam 0.5 MG TAB PO SCH ×2 (08:23→21:00)
[2020-02-06] MEDS: RIVAROXABAN 20 MG TAB (XARELTO) PO SCH (08:23)
--- NOTE | 2020-02-06 09:30 | MHIPN ---
DATE: 02/05/2020 At this point, the patient refused to see me today and so I am not able to complete any evaluation.
[2020-02-06 15:46] VITALS: BP 113/58
[2020-02-06] MEDS: traZODone 50 MG TAB PO SCH (21:00)
[2020-02-06] MEDS: OLANZapine 10 MG TAB PO SCH (21:00)
[2020-02-07 06:00] VITALS: BP 130/79
[2020-02-07] MEDS: NICOTINE 21MG/24HR 1 EA TRANSDERMAL TD SCH (09:00)
[2020-02-07] MEDS: DOCUSATE SODIUM 100 MG CAP PO SCH ×2 (09:28→21:28)
[2020-02-07] MEDS: LORazepam 0.5 MG TAB PO SCH ×2 (09:28→21:28)
[2020-02-07] MEDS: RIVAROXABAN 20 MG TAB (XARELTO) PO SCH (09:28)
[2020-02-07] MEDS: FUROSEMIDE 40 MG TAB PO SCH (09:28)
[2020-02-07 16:43] VITALS: BP 117/71
[2020-02-07] MEDS: traZODone 50 MG TAB PO SCH (21:28)
[2020-02-07] MEDS: OLANZapine 10 MG TAB PO SCH (21:28)
--- NOTE | 2020-02-07 23:16 | MHIPN ---
DATE: 02/07/2020 The patient is seen via telepsychiatry due to the current coronavirus crisis. The patient had refused to see me on Friday, so today is the first time that I am seeing him. When I asked him how he was doing, the patient stated, "I'm doing." Other than that, he really had nothing more to say. He responded with a short yes or no when I asked him whether he slept; he said that he did. I asked him if he had suicidal or homicidal thoughts, and he said that he did not. He is not caring for his activities of daily living (ADLs). MENTAL STATUS EXAM: The patient is alert and oriented to person and place. The patient has pretty severe paucity of thoughts, as I have noted above. There is no formal thought disorder noted. He says his mood is fine, affect is flat. I did not elicit any suicidal or homicidal ideations. Insight and judgment is poor. Concentration is poor. DIAGNOSES: Schizophrenia. TREATMENT PLAN: At this point, we will continue to monitor this patient for what I suspect is underlying ongoing psychotic symptoms, which he is very guarded about. And we will continue to titrate his medications as indicated.
[2020-02-08 06:33] VITALS: BP 111/71
[2020-02-08] MEDS: RIVAROXABAN 20 MG TAB (XARELTO) PO SCH (07:43)
[2020-02-08] MEDS: DOCUSATE SODIUM 100 MG CAP PO SCH ×2 (08:07→21:31)
[2020-02-08] MEDS: FUROSEMIDE 40 MG TAB PO SCH (08:07)
[2020-02-08] MEDS: LORazepam 0.5 MG TAB PO SCH ×2 (08:07→21:31)
[2020-02-08] MEDS: NICOTINE 21MG/24HR 1 EA TRANSDERMAL TD SCH (08:08)
[2020-02-08 16:38] VITALS: BP 114/81
[2020-02-08] MEDS: traZODone 50 MG TAB PO SCH (21:31)
[2020-02-08] MEDS: OLANZapine 10 MG TAB PO SCH (21:31)
[2020-02-09 06:33] VITALS: BP 123/76
[2020-02-09] MEDS: RIVAROXABAN 20 MG TAB (XARELTO) PO SCH (07:48)
[2020-02-09] MEDS: LORazepam 0.5 MG TAB PO SCH ×2 (08:01→21:52)
[2020-02-09] MEDS: NICOTINE 21MG/24HR 1 EA TRANSDERMAL TD SCH (08:01)
[2020-02-09] MEDS: FUROSEMIDE 40 MG TAB PO SCH (08:01)
[2020-02-09] MEDS: DOCUSATE SODIUM 100 MG CAP PO SCH ×2 (08:01→21:52)
--- NOTE | 2020-02-09 09:25 | MHIPNPDOC ---
[facility] Progress Note Progress Note DATE OF SERVICE: 02/09/20 HPI: Efren presents today for concerns regarding his mental health. He has not been showering lately, and he has no explanation as to why. MEDICATIONS: He denies any problems with his medications. Objective Appearance: Poor hygiene. Mildly disheveled. Speech: Sparse speech. Cognition: Slowed. Thought Form: Thought process is concrete. thought Content: Psychotic processes still appear present. Judgement: Slowed. Insight: Poor. Assessment F20.9 Schizophrenia, unspecified Plan We will continue his current medications. We will encourage showering. It is unclear if rukhsana need long-term or whether he can return to [facility]. Likely, he appears to be making improvement quickly. Secondary to early intervention when he stopped taking his medications. Vital Signs Vital Signs Date Time Temp Pulse Resp B/P (MAP) Pulse Ox O2 Delivery O2 Flow Rate FiO2 02/09/20 06:33 97.4 81 14 123/76 (92) Room Air 02/08/20 06:33 94 Current Medications Current Medications Medications (Trade) Dose Ordered Sig/Ana Route PRN Reason Start Time Stop Time Status Last Admin Dose Admin Al Hydrox/Mg Hydrox/Simethicone (Mylanta) 30 ml Q4HP PRN PO HEARTBURN/INDIGESTION 02/01/20 17:00 Docusate Sodium (Colace) 100 mg BID PO 02/01/20 21:00 02/09/20 08:01 Furosemide (Lasix) 40 mg DAILY PO 02/02/20 09:00 02/09/20 08:01 Home Med (Med Rec Complete!) ASDIRECTED XX 02/01/20 18:15 02/01/20 18:17 DC Ibuprofen (Advil) 400 mg Q6HP PRN PO PAIN 02/01/20 17:00 Lorazepam (Ativan) 0.5 mg BID PO 02/01/20 21:00 02/09/20 08:01 Magnesium Hydroxide (Milk Of Magnesia) 30 ml DAILYPRN PRN PO CONSTIPATION 02/01/20 17:00 Nicotine (Nicoderm Cq 21mg) 1 patch DAILY TD 02/02/20 09:00 Olanzapine (ZyPREXA ZYDIS) 5 mg Q4HP PRN PO ANXIETY/AGITATION 02/01/20 17:30 Olanzapine (ZyPREXA) 10 mg QHS PO 02/01/20 21:00 02/08/20 21:31 Paliperidone Palmitate (Invega Sustenna) 234 mg Q30D IM 02/01/20 09:00 Cancel Paliperidone Palmitate (Invega Sustenna) 234 mg Q30D IM 02/02/20 09:00 02/02/20 07:43 Polyethylene Glycol (Miralax) 1 pkt DAILYPRN PRN PO CONSTIPATION 02/02/20 18:45 Rivaroxaban (Xarelto) 20 mg DAILY@0800 PO 02/02/20 08:00 02/09/20 07:48 Trazodone HCl (Desyrel) 50 mg QHS PO 02/01/20 21:00 02/08/20 21:31 Trazodone HCl (Desyrel) 50 mg QHSP PRN PO INSOMNIA 02/01/20 17:00 02/01/20 17:41 DC Allergies Coded Allergies: Penicillins (Verified Allergy, Severe, hives, 05/21/19) RAMIRO VANN DO Feb 09, 2020 09:25
--- NOTE | 2020-02-09 15:34 | MHIPN ---
DATE: 02/08/2020 Patient is seen via telepsychiatry due to the current coronavirus crisis. The patient today states "I'm the best that I'm gonna get;" however, he is isolative, not caring for his activities of daily living (ADLs), and has not even taken a bath since he came into the hospital. MENTAL STATUS EXAMINATION: This patient is alert and oriented times three. Eye contact is poor. Psychomotor activity is decreased. He is very guarded. There is no formal thought disorder noted. He says his mood is fine. Affect is flat. He denies being suicidal or homicidal. I am not eliciting any gross psychotic symptoms. Concentration is fair. Insight and judgment are poor. DIAGNOSIS: Schizophrenia. TREATMENT PLAN: At this point, we will continue to monitor the patient for what I suspect is currently underlying psychotic symptoms, and we will continue to titrate the medications as indicated. He has been compliant with taking his medicines.
[2020-02-09 16:31] VITALS: BP 108/62
[2020-02-09] MEDS: traZODone 50 MG TAB PO SCH (21:52)
[2020-02-09] MEDS: OLANZapine 10 MG TAB PO SCH (21:52)
[2020-02-10 06:25] VITALS: BP 119/75
[2020-02-10] MEDS: NICOTINE 21MG/24HR 1 EA TRANSDERMAL TD SCH (09:00)
--- NOTE | 2020-02-10 09:49 | MHIPNPDOC ---
[facility] Progress Note Progress Note DATE OF SERVICE: 02/10/20 Efren presents today for a follow up. He states he is doing well and is talking more than usual. He denies any suicidal thoughts, homicidal thoughts, and nguyen ucinations. MEDICATIONS: He is taking all medications are prescribed and denies any side effects. Objective Appearance: Baseline hygiene is poor, which appears to be chronic. Affect: Generally flat. More talkative than usual. Cognition: Appears slowed. Perception: No perceptual abnormalities noted. Judgement: Limited. Insight: Limited. Assessment F20.9 Schizophrenia, unspecified Plan Continue current medications. Will arrange for meeting with AOT coordinator and TLS for a discharge back to their services. He has not showered, although that does not make a strong argument for involuntary commitment and he does appear, per staff report, to be doing quite well and be more expressive than he has been on many previous admissions. group home will be unlikely to be necessary at this time. Vital Signs Vital Signs Date Time Temp Pulse Resp B/P (MAP) Pulse Ox O2 Delivery O2 Flow Rate FiO2 02/10/20 06:25 97.8 87 14 119/75 (90) Room Air 02/08/20 06:33 94 Current Medications Current Medications Medications (Trade) Dose Ordered Sig/Ana Route PRN Reason Start Time Stop Time Status Last Admin Dose Admin Al Hydrox/Mg Hydrox/Simethicone (Mylanta) 30 ml Q4HP PRN PO HEARTBURN/INDIGESTION 02/01/20 17:00 Docusate Sodium (Colace) 100 mg BID PO 02/01/20 21:00 02/09/20 21:52 Furosemide (Lasix) 40 mg DAILY PO 02/02/20 09:00 02/09/20 08:01 Home Med (Med Rec Complete!) ASDIRECTED XX 02/01/20 18:15 02/01/20 18:17 DC Ibuprofen (Advil) 400 mg Q6HP PRN PO PAIN 02/01/20 17:00 Lorazepam (Ativan) 0.5 mg BID PO 02/01/20 21:00 02/09/20 21:52 Magnesium Hydroxide (Milk Of Magnesia) 30 ml DAILYPRN PRN PO CONSTIPATION 02/01/20 17:00 Nicotine (Nicoderm Cq 21mg) 1 patch DAILY TD 02/02/20 09:00 Olanzapine (ZyPREXA ZYDIS) 5 mg Q4HP PRN PO ANXIETY/AGITATION 02/01/20 17:30 Olanzapine (ZyPREXA) 10 mg QHS PO 02/01/20 21:00 02/09/20 21:52 Paliperidone Palmitate (Invega Sustenna) 234 mg Q30D IM 02/01/20 09:00 Cancel Paliperidone Palmitate (Invega Sustenna) 234 mg Q30D IM 02/02/20 09:00 02/02/20 07:43 Polyethylene Glycol (Miralax) 1 pkt DAILYPRN PRN PO CONSTIPATION 02/02/20 18:45 Rivaroxaban (Xarelto) 20 mg DAILY@0800 PO 02/02/20 08:00 02/09/20 07:48 Trazodone HCl (Desyrel) 50 mg QHS PO 02/01/20 21:00 02/09/20 21:52 Trazodone HCl (Desyrel) 50 mg QHSP PRN PO INSOMNIA 02/01/20 17:00 02/01/20 17:41 DC Allergies Coded Allergies: Penicillins (Verified Allergy, Severe, hives, 05/21/19) RAMIRO VANN DO Feb 10, 2020 09:49
[2020-02-10] MEDS: DOCUSATE SODIUM 100 MG CAP PO SCH ×2 (10:11→20:52)
[2020-02-10] MEDS: RIVAROXABAN 20 MG TAB (XARELTO) PO SCH (10:11)
[2020-02-10] MEDS: FUROSEMIDE 40 MG TAB PO SCH (10:11)
[2020-02-10] MEDS: LORazepam 0.5 MG TAB PO SCH ×2 (10:11→20:52)
[2020-02-10 17:44] VITALS: BP 105/65
[2020-02-10] MEDS: traZODone 50 MG TAB PO SCH (20:52)
[2020-02-10] MEDS: OLANZapine 10 MG TAB PO SCH (20:52)
[2020-02-11 06:49] VITALS: BP 117/77
[2020-02-11] MEDS: RIVAROXABAN 20 MG TAB (XARELTO) PO SCH (08:31)
[2020-02-11] MEDS: LORazepam 0.5 MG TAB PO SCH ×2 (08:31→21:04)
[2020-02-11] MEDS: DOCUSATE SODIUM 100 MG CAP PO SCH ×2 (08:31→21:03)
[2020-02-11] MEDS: FUROSEMIDE 40 MG TAB PO SCH (08:31)
[2020-02-11] MEDS: NICOTINE 21MG/24HR 1 EA TRANSDERMAL TD SCH (08:31)
--- NOTE | 2020-02-11 09:26 | MHIPNPDOC ---
[facility] Progress Note Progress Note DATE OF SERVICE: 02/11/20 HPI: Andrews declines to meet with providers today. Per staff, he is actually doing quite well but still somewhat psychotic at baseline. Meeting with transitional living services and AOT went will. He is doing better than previous as he is more talkative and engaged. Objective Objective exam was unable to be performed due to Efren declining meeting today. Assessment F20.9 Schizophrenia, unspecified Plan Plan is for dischage on Friday which we will planned and relayed information on sign out to oncoming provider to check patient to make sure no further decompensation and the patient is stable enough to be going back to transitional living services as he will not be seen over the weekend being over 5 days. Hell need to be ascertained as to whether hes appropriate for discharge at that t [facility]. Vital Signs Vital Signs Date Time Temp Pulse Resp B/P (MAP) Pulse Ox O2 Delivery O2 Flow Rate FiO2 02/11/20 06:49 98.4 79 14 117/77 (90) Room Air 02/10/20 17:44 96 Current Medications Current Medications Medications (Trade) Dose Ordered Sig/Ana Route PRN Reason Start Time Stop Time Status Last Admin Dose Admin Al Hydrox/Mg Hydrox/Simethicone (Mylanta) 30 ml Q4HP PRN PO HEARTBURN/INDIGESTION 02/01/20 17:00 Docusate Sodium (Colace) 100 mg BID PO 02/01/20 21:00 02/11/20 08:31 Furosemide (Lasix) 40 mg DAILY PO 02/02/20 09:00 02/11/20 08:31 Home Med (Med Rec Complete!) ASDIRECTED XX 02/01/20 18:15 02/01/20 18:17 DC Ibuprofen (Advil) 400 mg Q6HP PRN PO PAIN 02/01/20 17:00 Lorazepam (Ativan) 0.5 mg BID PO 02/01/20 21:00 02/11/20 08:31 Magnesium Hydroxide (Milk Of Magnesia) 30 ml DAILYPRN PRN PO CONSTIPATION 02/01/20 17:00 Nicotine (Nicoderm Cq 21mg) 1 patch DAILY TD 02/02/20 09:00 Olanzapine (ZyPREXA ZYDIS) 5 mg Q4HP PRN PO ANXIETY/AGITATION 02/01/20 17:30 Olanzapine (ZyPREXA) 10 mg QHS PO 02/01/20 21:00 02/10/20 20:52 Paliperidone Palmitate (Invega Sustenna) 234 mg Q30D IM 02/01/20 09:00 Cancel Paliperidone Palmitate (Invega Sustenna) 234 mg Q30D IM 02/02/20 09:00 02/02/20 07:43 Polyethylene Glycol (Miralax) 1 pkt DAILYPRN PRN PO CONSTIPATION 02/02/20 18:45 Rivaroxaban (Xarelto) 20 mg DAILY@0800 PO 02/02/20 08:00 02/11/20 08:31 Trazodone HCl (Desyrel) 50 mg QHS PO 02/01/20 21:00 02/10/20 20:52 Trazodone HCl (Desyrel) 50 mg QHSP PRN PO INSOMNIA 02/01/20 17:00 02/01/20 17:41 DC Allergies Coded Allergies: Penicillins (Verified Allergy, Severe, hives, 05/21/19) RAMIRO VANN DO Feb 11, 2020 09:26
[2020-02-11 16:09] VITALS: BP 106/59
[2020-02-11] MEDS: OLANZapine 10 MG TAB PO SCH (21:04)
[2020-02-11] MEDS: traZODone 50 MG TAB PO SCH (21:04)
[2020-02-12 06:26] VITALS: BP 120/63
[2020-02-12] MEDS: DOCUSATE SODIUM 100 MG CAP PO SCH (08:00)
[2020-02-12] MEDS: LORazepam 0.5 MG TAB PO SCH (08:01)
[2020-02-12] MEDS: RIVAROXABAN 20 MG TAB (XARELTO) PO SCH (08:01)
[2020-02-12] MEDS: FUROSEMIDE 40 MG TAB PO SCH (08:01)
[2020-02-12] MEDS: NICOTINE 21MG/24HR 1 EA TRANSDERMAL TD SCH (08:03)
[2020-02-12 16:58] VITALS: BP 110/60
[2020-02-13] MEDS: LORazepam 0.5 MG TAB PO SCH ×3 (04:43→21:05)
[2020-02-13] MEDS: traZODone 50 MG TAB PO SCH ×2 (04:43→21:05)
[2020-02-13] MEDS: DOCUSATE SODIUM 100 MG CAP PO SCH ×3 (04:43→21:05)
[2020-02-13] MEDS: OLANZapine 10 MG TAB PO SCH ×2 (04:43→21:05)
[2020-02-13 06:25] VITALS: BP 118/76
[2020-02-13] MEDS: RIVAROXABAN 20 MG TAB (XARELTO) PO SCH (07:37)
[2020-02-13] MEDS: FUROSEMIDE 40 MG TAB PO SCH (08:06)
[2020-02-13] MEDS: NICOTINE 21MG/24HR 1 EA TRANSDERMAL TD SCH (08:07)
[2020-02-13 16:23] VITALS: BP 96/60
[2020-02-14 06:28] VITALS: BP 168/78
[2020-02-14] MEDS: NICOTINE 21MG/24HR 1 EA TRANSDERMAL TD SCH (07:21)
[2020-02-14] MEDS: FUROSEMIDE 40 MG TAB PO SCH (08:11)
[2020-02-14] MEDS: DOCUSATE SODIUM 100 MG CAP PO SCH (08:11)
[2020-02-14] MEDS: LORazepam 0.5 MG TAB PO SCH (08:11)
[2020-02-14] MEDS: RIVAROXABAN 20 MG TAB (XARELTO) PO SCH (08:11)
[2020-02-14] MEDS ORDERED: OLAN10TA2 PO (13:54)
[2020-02-14] MEDS ORDERED: TRAZ-252 PO (13:54)
[2020-02-14] MEDS ORDERED: ATIV1TAB10 PO (13:54)
[2020-02-14] MEDS ORDERED: XARE20TA PO (13:54)
--- NOTE | 2020-02-21 13:30 | MHDSPDOC ---
[facility] Discharge Summary Discharge Summary DATE OF ADMISSION: Feb 01, 2020 at 16:49 DATE OF DISCHARGE: Feb 14, 2020 at 14:54 DISCHARGE DIAGNOSES: 1. .Unspecified schizophrenia 2. . Efren is a 49-year-old male who suffers from chronic schizophrenia who was admitted in stay on our inpatient psychiatric unit for 2 weeks He stabilized without any kind of complication --- he was seen for the initial evaluation/psychiatric consultation at hand at that point noted to have undifferentiated schizophrenia His course in the hospital was unremarkable--he responded well to the medication and to the milieu treatment--he was discharged back to the transitional living setting where he had previously lived Final mental status upon discharge MENTAL STATUS EXAM Level of consciousness--patient was alert and oriented to time place person Appearance-normal posture, normal dress, no prominent physical abnormalities, alert, cooperative Behavior--like to good, no psychomotor agitation or retardation, no abnormal movements, no tremor Speech--normal rate and rhythm--normal volume Mood--euthymic Affect--normal range and consistent with mood--stable Thought processes--logical and linear , goal directed and coherent--no thought blocking or flight of ideas, no loose associations, no tangential thinking, no word salad, no thought blocking, no circumstantiality Thought content--no ideas of reference no auditory or visual hallucinations, no delusional thinking, no thoughts of derealization or depersonalization, no obsessive thinking, no expressed phobias, Cognition--patient was alert and able to focus-sustained appropriate mental attention-memory immediate and short-term memory intact-abstract thinking present, Insight---fair Judgment or the ability to anticipate consequences of behavior intact Patient denied any suicidal ideation or impulses Patient denied any homicidal impulses or ideation Final medication on discharge included olanzapine 10 mg at bedtime Patient is also maintained on Invega Sustenna 234 mg every 30 days--his last shot before coming into the hospital was on January 31 While in the hospital patient also received and was discharged on trazodone 50 mg at bedtime 30 minutes spent in discharge process After care was arranged Medications reconciled The safety contract was instructed Emergency procedures were explained Medications Scheduled Docusate Sodium (Colace) 100 Mg Capsule, 1 CAP PO BID for 30 Days, #60 (Reported) Furosemide (Lasix) 40 Mg Tablet, 1 TAB PO DAILY for 30 Days, #30 (Reported) Lorazepam (Ativan) 0.5 Mg Tablet, 0.5 MG PO BID for 30 Days, #60 (Reported) Lorazepam (Ativan) 0.5 Mg Tablet, 0.5 MG PO BID for general anxiety for 30 Days, #60 Olanzapine (Zyprexa) 10 Mg Tablet, 10 MG PO QPM, (Reported) Olanzapine (Olanzapine) 10 Mg Tablet, 10 MG PO QHS for psychosis for 30 Days, #30 Paliperidone Palmitate (Invega Sustenna) 234 Mg/1.5 Ml Syringe, 234 MG IM Q30D, (Reported) PT STATES ON 02/01/20 MAY HAVE RECEIVED A WEEK AGO Rivaroxaban (Xarelto) 20 Mg Tablet, 20 MG PO DAILY, (Reported) with food Rivaroxaban (Xarelto) 20 Mg Tablet, 20 MG PO DAILY@0800 for blood coag issue for 30 Days, #30 Trazodone HCl (Trazodone HCl) 50 Mg Tablet, 50 MG PO QPM, (Reported) Trazodone HCl (Trazodone HCl) 50 Mg Tablet, 50 MG PO QHS for sleep for 30 Days, #30 Allergies Coded Allergies: Penicillins (Verified Allergy, Severe, hives, 05/21/19) Arron Solano MD Feb 21, 2020 13:30
== END 2020-02-14 14:54 | disposition home or self-care (01) | DRG 885 ==
LOC: M ED 14:20 → M ED INP 16:49 → M PSY 21:07
PROVIDERS: ADMIT Psychiatry & Neurology Psychiatry; ATTEND Psychiatry & Neurology Psychiatry
DX: F20.3 Undifferentiated schizophrenia (principal); Z88.0 Allergy status to penicillin; Z79.899 Other long term (current) drug therapy; K59.00 Constipation, unspecified; Z91.14 Patient's other noncompliance with medication regimen; B35.1 Tinea unguium

== ENCOUNTER → 2020-04-27 | Outpatient (CLI) | payer MEDICARE, MEDICAID ==
[~2020-04-27] MED LIST changes: +ATIV1TAB10 PO; +COLA100C5 PO; +INVE234I IM; +LASI40TA9 PO; +OLAN10TA2 PO; -PALIPERIDONE PALMITATE 234MG/1.5ML INJ (INVEGA)(FREE PSY INPT ONLY) IM SCH; +TRAZ-252 PO; +XARE20TA PO; +ZYPR10TA PO
[2020-04-27 15:39] LABS: BASO % 0.6 % (0.0-1.0); EOS # 0.2 10^3/uL (0.0-0.5); EOS % 2.4 % (0.0-3.0); HEMATOCRIT 43.8 % (42.0-52.0); HEMOGLOBIN 14.2 g/dl (13.5-17.5); LYMPH # 2.4 10^3/uL (1.5-5.0); LYMPH % 32.9 % (24.0-44.0); MEAN CORPUSCULAR HEMOGLOBIN 30.3 pg (27.0-33.0); MEAN CORPUSCULAR HGB CONC 32.4 g/dl (32.0-36.5); MEAN CORPUSCULAR VOLUME 93.6 fl (80.0-96.0); MONO # 0.5 10^3/uL (0.0-0.8); MONO % 7.6 % (0.0-5.0); NEUTROPHILS % 56.2 % (36.0-66.0); PLATELET COUNT, AUTOMATED 201 10^3/uL (150-450); RED BLOOD COUNT 4.68 10^6/uL (4.30-6.10); WHITE BLOOD COUNT 7.2 10^3/uL (4.0-10.0)
[2020-04-27 15:43] LABS: BLOOD UREA NITROGEN 14 MG/DL (7-18); CARBON DIOXIDE LEVEL 27 MEQ/L (21-32); CHLORIDE LEVEL 111 MEQ/L (98-107); CREATININE FOR GFR 0.83 MG/DL (0.70-1.30); GLOMERULAR FILTRATION RATE > 60.0 (>56); GLUCOSE, FASTING 93 MG/DL (70-100); POTASSIUM SERUM 4.1 MEQ/L (3.5-5.1); SODIUM LEVEL 140 MEQ/L (136-145)
== END ==
LOC: M WUC 10:06
PROVIDERS: ATTEND Physician Assistant
DX: R60.9 Edema, unspecified (principal)

== ENCOUNTER 2020-12-06 13:10 | Emergency (ER) | payer MEDICARE, MEDICAID ==
[~2020-12-06] VITALS: Ht 175.3 cm; Wt 100.0 kg
--- NOTE | 2020-12-06 14:00 | REP ---
INDICATION: DYSPNEA/COUGH. COMPARISON: 01/03/2018 a two view exam. TECHNIQUE: Portable FINDINGS: The technique utilized in obtaining the radiograph has magnified the cardiac silhouette and accentuated the interstitial markings. The superior mediastinal structures are midline. The cardiac silhouette is unremarkable in size, shape, and position. The diaphragmatic surfaces of the lungs are regular, and the costophrenic angles are clear. The pulmonary carranza are with the exception of stable calcified granulomas.. The imaged osseous structures are intact. IMPRESSION: There is no acute cardiopulmonary disease. <Electronically signed by Vin Chaudhry > 12/06/20 [id number]
[2020-12-06 14:13] LABS: BASO % 0.2 % (0.0-1.0); EOS % 0.4 % (0.0-3.0); HEMATOCRIT 48.5 % (42.0-52.0); HEMOGLOBIN 16.2 g/dl (13.5-17.5); LYMPH % 21.4 % (24.0-44.0); MEAN CORPUSCULAR HEMOGLOBIN 30.4 pg (27.0-33.0); MEAN CORPUSCULAR HGB CONC 33.4 g/dl (32.0-36.5); MONO # 0.9 10^3/uL (0.0-0.8); MONO % 10.2 % (2.0-8.0); NEUTROPHILS # 6.2 10^3/uL (1.5-8.5); NEUTROPHILS % 67.7 % (36.0-66.0); PLATELET COUNT, AUTOMATED 248 10^3/uL (150-450); RED BLOOD COUNT 5.33 10^6/uL (4.30-6.10); WHITE BLOOD COUNT 9.2 10^3/uL (4.0-10.0)
[2020-12-06 14:40] LABS: ALBUMIN 4.2 GM/DL (3.2-5.2); ALT/SGPT 34 U/L (12-78); BILIRUBIN,DIRECT 0.1 MG/DL (0.0-0.2); BILIRUBIN,TOTAL 0.5 MG/DL (0.2-1.0); CK-MB VALUE MASS < 1.0 NG/ML (<3.6); CPK CREATINE PHOSPHOKINASE 77 U/L (39-308); NT-PRO BNP 103 PG/ML (<125); THYROXINE (T4) 9.8 UG/DL (4.5-12.0); TOTAL PROTEIN 8.2 GM/DL (6.4-8.2); TROPONIN I < 0.02 NG/ML (< 0.10)
[2020-12-06 15:11] LABS: ABG HCO3 22.6 MEQ/L (22.0-26.0); ABG O2 SATURATION 99.5 % (95.0-99.0); ABG PARTIAL PRESSURE CO2 31.5 mmHg (35.0-45.0); ABG PARTIAL PRESSURE O2 228.1 mmHg (75.0-100.0); ABG STANDARD HCO3 24.6 MEQ/L (22.0-26.0); ABG TOTAL CO2 23.6 MEQ/L (22.0-29.0)
[2020-12-06 15:13] LABS: ABG pH (ARTERIAL) 7.474 UNITS (7.350-7.450)
[2020-12-06 16:00] LABS: RSV AMPLIFICATION NEGATIVE (NEGATIVE)
--- NOTE | 2020-12-06 16:34 | REP ---
INDICATION: ams. COMPARISON: None. TECHNIQUE: Axial CT images with multiplanar reformations. FINDINGS: No acute bleed or acute large vessel territorial infarct. Ventricles, cisterns and sulci are within normal limits. No mass effect or midline shift. No abnormal fluid collections. Paranasal sinuses and mastoid air cells are clear. IMPRESSION: No acute findings. <Electronically signed by Destin Hernandez > 12/06/20 [id number]
[2020-12-06 17:15] VITALS: BP 121/84
--- NOTE | 2020-12-07 12:55 | ECGEPIP ---
[facility] - ED Test Date: 2020-12-06 Pat Name: VAL CONTRERAS Department: Room: - Gender: Male [employer] Tool [employer]: gareth : 1970 Requested By: Kiley Mayes Order Number: [id number] Reading MD: Kiley Mayes Measurements Intervals [place] Rate: 96 P: 31 UT: 150 QRS: -6 QRSD: 82 T: 20 QT: 332 QTc: 419 Interpretive Statements Normal sinus rhythm irbbb early r progression increased rate 05/24/19 Electronically Signed on 12-07-2020 12:55:14 EDT by Kiley Mayes
== END 2020-12-06 17:45 | disposition home or self-care (01) ==
LOC: M ED 13:10
DX: F33.9 Major depressive disorder, recurrent, unspecified (principal); R06.02 Shortness of breath; I25.10 Atherosclerotic heart disease of native coronary artery without angina pectoris; Z86.718 Personal history of other venous thrombosis and embolism; Z79.899 Other long term (current) drug therapy; Z88.0 Allergy status to penicillin; F17.210 Nicotine dependence, cigarettes, uncomplicated

== ENCOUNTER 2021-04-04 15:34 | Emergency (ER) | payer MEDICARE, MEDICAID ==
[~2021-04-04] VITALS: Ht 175.3 cm; Wt 112.3 kg
[~2021-04-04 15:34] MED LIST changes: -OLAN10TA2 PO; +OLAN1TAB20 PO
[2021-04-04 15:35] VITALS: BP 158/91
[2021-04-04] MEDS ORDERED: GOOD81CH3 PO (15:48)
[2021-04-04] MEDS ORDERED: MIRT1TAB (15:48)
== END 2021-04-04 17:59 | disposition left against medical advice (07) ==
LOC: M ED 15:34
DX: Z53.29 Procedure and treatment not carried out because of patient's decision for other reasons (principal)

== ENCOUNTER 2022-03-21 13:48 | Inpatient (IN) | payer MEDICARE, MEDICAID ==
[~2022-03-21] VITALS: Ht 175.3 cm; Wt 97.9 kg
[~2022-03-21 13:48] MED LIST changes: +GOOD81CH3 PO; +MIRT1TAB
[2022-03-21] MEDS ORDERED: ASPIRIN 81 MG CHEW TABLET PO ONE (14:35)
[2022-03-21 14:54] LABS: BASO % 0.3 % (0.0-1.0); EOS # 0.1 10^3/uL (0.0-0.5); EOS % 0.8 % (0.0-3.0); HEMATOCRIT 48.3 % (42.0-52.0); LYMPH % 22.4 % (24.0-44.0); MEAN CORPUSCULAR HEMOGLOBIN 30.7 pg (27.0-33.0); MEAN CORPUSCULAR HGB CONC 33.1 g/dl (32.0-36.5); MEAN CORPUSCULAR VOLUME 92.5 fl (80.0-96.0); MONO # 0.8 10^3/uL (0.0-0.8); NEUTROPHILS % 67.2 % (36.0-66.0); PLATELET COUNT, AUTOMATED 240 10^3/uL (150-450); RED BLOOD COUNT 5.22 10^6/uL (4.30-6.10); WHITE BLOOD COUNT 8.9 10^3/uL (4.0-10.0)
[2022-03-21 15:09] LABS: INR 0.95; PROTHROMBIN TIME 13.1 SECONDS (12.7-14.5)
[2022-03-21 15:10] LABS: PARTIAL THROMBOPLASTIN TIME 29.6 SECONDS (25.9-37.0)
[2022-03-21 15:22] LABS: BLOOD UREA NITROGEN 10 MG/DL (7-18); CALCIUM LEVEL 9.5 MG/DL (8.5-10.1); CARBON DIOXIDE LEVEL 25 MEQ/L (21-32); CHLORIDE LEVEL 105 MEQ/L (98-107); GLOMERULAR FILTRATION RATE > 60.0 (>56); GLUCOSE, FASTING 99 MG/DL (70-100); POTASSIUM SERUM 4.1 MEQ/L (3.5-5.1); SODIUM LEVEL 138 MEQ/L (136-145)
[2022-03-21 15:27] LABS: CK-MB VALUE MASS < 1.0 NG/ML (<3.6); CPK CREATINE PHOSPHOKINASE 125 U/L (39-308)
[2022-03-21 15:36] LABS: RSV AMPLIFICATION NEGATIVE (NEGATIVE)
[2022-03-21] MEDS ORDERED: ACETAMINOPHEN TAB 650MG DOSE (2X325MG) PO PRN (18:10)
[2022-03-21] MEDS ORDERED: MOM 30ML SUSPENSION UDC PO PRN (18:10)
[2022-03-21] MEDS ORDERED: MAALOX 30 ML SUSP *UDC PO PRN (18:10)
[2022-03-21] MEDS ORDERED: DIPH25CA32 PO (18:52)
[2022-03-21] MEDS ORDERED: ASPI81TA26 PO (18:52)
[2022-03-21] MEDS ORDERED: HOME MED LIST COMPLETE! XX SCH (18:55)
[2022-03-21 19:36] LABS: CK-MB VALUE MASS < 1.0 NG/ML (<3.6); CPK CREATINE PHOSPHOKINASE 117 U/L (39-308); MB/CK RELATIVE INDEX 0.85 (< OR =4)
[2022-03-21 19:58] VITALS: BP 110/70
[2022-03-21 22:00] VITALS: BP 112/72
[2022-03-22 00:37] LABS: CK-MB VALUE MASS < 1.0 NG/ML (<3.6); CPK CREATINE PHOSPHOKINASE 138 U/L (39-308); MB/CK RELATIVE INDEX 0.72 (< OR =4)
[2022-03-22 04:00] VITALS: BP 115/77
[2022-03-22 06:40] LABS: BASO # 0.1 10^3/uL (0.0-0.2); BASO % 0.6 % (0.0-1.0); EOS # 0.3 10^3/uL (0.0-0.5); EOS % 2.9 % (0.0-3.0); HEMATOCRIT 46.4 % (42.0-52.0); LYMPH # 2.9 10^3/uL (1.5-5.0); MEAN CORPUSCULAR HEMOGLOBIN 30.1 pg (27.0-33.0); MEAN CORPUSCULAR HGB CONC 32.3 g/dl (32.0-36.5); MEAN CORPUSCULAR VOLUME 93.2 fl (80.0-96.0); MONO # 0.8 10^3/uL (0.0-0.8); MONO % 9.1 % (2.0-8.0); NEUTROPHILS # 4.7 10^3/uL (1.5-8.5); NEUTROPHILS % 54.2 % (36.0-66.0); PLATELET COUNT, AUTOMATED 216 10^3/uL (150-450); RED BLOOD COUNT 4.98 10^6/uL (4.30-6.10); WHITE BLOOD COUNT 8.7 10^3/uL (4.0-10.0)
[2022-03-22 07:20] LABS: ALBUMIN 3.6 GM/DL (3.2-5.2); ALT/SGPT 40 U/L (12-78); BILIRUBIN,TOTAL 0.7 MG/DL (0.2-1.0); BLOOD UREA NITROGEN 10 MG/DL (7-18); CALCIUM LEVEL 9.3 MG/DL (8.5-10.1); CARBON DIOXIDE LEVEL 25 MEQ/L (21-32); CHLORIDE LEVEL 106 MEQ/L (98-107); CHOLESTEROL LEVEL 233 MG/DL (<200); CREATININE FOR GFR 0.87 MG/DL (0.70-1.30); GLOMERULAR FILTRATION RATE > 60.0 (>56); GLUCOSE, FASTING 82 MG/DL (70-100); HDL CHOLESTEROL 52 MG/DL (>40); LDL CHOLESTEROL 161 MG/DL (<100); MAGNESIUM LEVEL 2.4 MG/DL (1.8-2.4); NON-HDL-C 181 MG/DL; POTASSIUM SERUM 3.7 MEQ/L (3.5-5.1); SODIUM LEVEL 138 MEQ/L (136-145); TOTAL PROTEIN 6.9 GM/DL (6.4-8.2); TRIGLYCERIDES LEVEL 99 MG/DL (<150)
[2022-03-22 08:35] LABS: HEMOGLOBIN A1c 5.3 %
[2022-03-22] MEDS: ENOXAPARIN 40MG/0.4ML SYRINGE (J1650 PER 10MG) SC SCH (09:47)
[2022-03-22 10:00] VITALS: BP_SYST 104; BP_SYST 105; BP_SYST 98; BP_DIAS 41; BP_DIAS 64; BP_DIAS 65
[2022-03-22 10:26] LABS: MB/CK RELATIVE INDEX 0.66 (< OR =4)
[2022-03-22] MEDS ORDERED: diphenhydrAMINE 25MG CAP PO PRN (10:30)
[2022-03-22] MEDS ORDERED: ISOVUE-370 76% 100ML VIAL As Ordered ONE (10:30)
[2022-03-22 11:37] LABS: CARBOXYHEMOGLOBIN 1.9 % (0.0-1.5); METHEMOGLOBIN 0.3 % (0.0-2.0)
[2022-03-22 12:00] VITALS: BP 120/74
[2022-03-22] MEDS ORDERED: GLYCERIN ADULT SUPP PR ONE (12:00)
[2022-03-22] MEDS: ASPIRIN 81MG ENTERIC TABLET PO SCH (12:18)
[2022-03-22] MEDS: FUROSEMIDE 40 MG TAB PO SCH (12:18)
[2022-03-22] MEDS: DOCUSATE SODIUM 100MG CAPSULE PO SCH ×2 (12:18→20:01)
[2022-03-22] MEDS: MIRALAX *UNIT DOSE* 17GM PACKET PO SCH (12:18)
[2022-03-22] MEDS: IPRATROPIUM 0.5MG/ALBUTEROL 2.5MG INH SOL UD 3ML (DUONEB) NEB SCH ×2 (14:17→15:17)
[2022-03-22 15:17] VITALS: O2SAT 93
[2022-03-22] MEDS ORDERED: IPRATROPIUM 0.5MG/ALBUTEROL 2.5MG INH SOL UD 3ML (DUONEB) NEB PRN (15:55)
[2022-03-22 18:00] VITALS: BP_SYST 118; BP_SYST 130; BP_SYST 134; BP_DIAS 67; BP_DIAS 77; BP_DIAS 79
[2022-03-22] MEDS ORDERED: OLANZapine 10 MG TAB PO SCH (18:00)
[2022-03-22 20:00] VITALS: BP 96/52
[2022-03-23 04:00] VITALS: BP 103/70
[2022-03-23 07:12] LABS: BASO # 0.1 10^3/uL (0.0-0.2); BASO % 0.6 % (0.0-1.0); EOS # 0.3 10^3/uL (0.0-0.5); EOS % 3.7 % (0.0-3.0); HEMOGLOBIN 14.9 g/dl (13.5-17.5); LYMPH # 2.4 10^3/uL (1.5-5.0); LYMPH % 29.9 % (24.0-44.0); MEAN CORPUSCULAR HEMOGLOBIN 30.8 pg (27.0-33.0); MEAN CORPUSCULAR HGB CONC 33.1 g/dl (32.0-36.5); MEAN CORPUSCULAR VOLUME 93.2 fl (80.0-96.0); MONO # 0.8 10^3/uL (0.0-0.8); MONO % 10.3 % (2.0-8.0); NEUTROPHILS # 4.4 10^3/uL (1.5-8.5); NEUTROPHILS % 55.2 % (36.0-66.0); PLATELET COUNT, AUTOMATED 210 10^3/uL (150-450); RED BLOOD COUNT 4.83 10^6/uL (4.30-6.10); WHITE BLOOD COUNT 7.9 10^3/uL (4.0-10.0)
[2022-03-23 08:02] LABS: ALBUMIN 3.4 GM/DL (3.2-5.2); ALT/SGPT 49 U/L (12-78); BILIRUBIN,TOTAL 0.4 MG/DL (0.2-1.0); BLOOD UREA NITROGEN 17 MG/DL (7-18); CALCIUM LEVEL 9.1 MG/DL (8.5-10.1); CARBON DIOXIDE LEVEL 26 MEQ/L (21-32); CHLORIDE LEVEL 109 MEQ/L (98-107); CREATININE FOR GFR 0.88 MG/DL (0.70-1.30); GLOMERULAR FILTRATION RATE > 60.0 (>56); GLUCOSE, FASTING 87 MG/DL (70-100); MAGNESIUM LEVEL 2.4 MG/DL (1.8-2.4); POTASSIUM SERUM 3.9 MEQ/L (3.5-5.1); SODIUM LEVEL 141 MEQ/L (136-145); TOTAL PROTEIN 6.8 GM/DL (6.4-8.2)
[2022-03-23] MEDS: DOCUSATE SODIUM 100MG CAPSULE PO SCH (09:00)
[2022-03-23] MEDS: MIRALAX *UNIT DOSE* 17GM PACKET PO SCH (09:00)
[2022-03-23] MEDS: FUROSEMIDE 40 MG TAB PO SCH (09:48)
[2022-03-23] MEDS: ASPIRIN 81MG ENTERIC TABLET PO SCH (09:48)
[2022-03-23] MEDS: ENOXAPARIN 40MG/0.4ML SYRINGE (J1650 PER 10MG) SC SCH (09:49)
[2022-03-23] MEDS ORDERED: MIRA1POW3 PO (11:34)
[2022-03-23 12:00] VITALS: BP 124/71
== END 2022-03-23 14:26 | disposition home or self-care (01) | DRG 312 ==
LOC: M ED 13:48 → M 4MAIN 18:08 → ENRESERV 18:19
PROVIDERS: ADMIT Family Medicine; ATTEND Family Medicine
DX: R55 Syncope and collapse (principal); F25.9 Schizoaffective disorder, unspecified; F32.A Depression, unspecified; F41.9 Anxiety disorder, unspecified; K59.00 Constipation, unspecified; R94.31 Abnormal electrocardiogram [ECG] [EKG]; I50.9 Heart failure, unspecified; J84.10 Pulmonary fibrosis, unspecified; F17.200 Nicotine dependence, unspecified, uncomplicated; I27.20 Pulmonary hypertension, unspecified; Z87.81 Personal history of (healed) traumatic fracture; Z86.73 Personal history of transient ischemic attack (TIA), and cerebral infarction without residual deficits; Z79.82 Long term (current) use of aspirin; Z79.899 Other long term (current) drug therapy; Z87.442 Personal history of urinary calculi; Z88.0 Allergy status to penicillin

== ENCOUNTER 2022-04-16 08:48 | Emergency (ER) | payer MEDICARE, MEDICAID ==
[~2022-04-16] VITALS: Ht 175.3 cm; Wt 102.3 kg
[~2022-04-16 08:48] MED LIST changes: +ASPI81TA26 PO; +DIPH25CA32 PO; +MIRA1POW3 PO
[2022-04-16 09:28] LABS: BASO % 0.3 % (0.0-1.0); EOS # 0.1 10^3/uL (0.0-0.5); EOS % 0.5 % (0.0-3.0); HEMATOCRIT 47.3 % (42.0-52.0); HEMOGLOBIN 16.2 g/dl (13.5-17.5); LYMPH # 1.8 10^3/uL (1.5-5.0); LYMPH % 14.6 % (24.0-44.0); MEAN CORPUSCULAR HEMOGLOBIN 31.4 pg (27.0-33.0); MEAN CORPUSCULAR HGB CONC 34.2 g/dl (32.0-36.5); MEAN CORPUSCULAR VOLUME 91.7 fl (80.0-96.0); MONO # 0.5 10^3/uL (0.0-0.8); MONO % 4.2 % (2.0-8.0); NEUTROPHILS # 9.6 10^3/uL (1.5-8.5); PLATELET COUNT, AUTOMATED 264 10^3/uL (150-450); RED BLOOD COUNT 5.16 10^6/uL (4.30-6.10)
[2022-04-16 09:54] LABS: ABG BASE EXCESS -1.4 (-2.0-2.0); ABG HCO3 20.8 MEQ/L (22.0-26.0); ABG PARTIAL PRESSURE CO2 28.8 mmHg (35.0-45.0); ABG PARTIAL PRESSURE O2 88.8 mmHg (75.0-100.0); ABG STANDARD HCO3 23.3 MEQ/L (22.0-26.0); ABG TOTAL CO2 21.7 MEQ/L (22.0-29.0); ABG pH (ARTERIAL) 7.476 UNITS (7.350-7.450)
[2022-04-16 10:03] LABS: ALBUMIN 3.8 GM/DL (3.2-5.2); ALT/SGPT 40 U/L (12-78); BILIRUBIN,DIRECT 0.1 MG/DL (0.0-0.2); BILIRUBIN,TOTAL 0.4 MG/DL (0.2-1.0); BLOOD UREA NITROGEN 8 MG/DL (7-18); CALCIUM LEVEL 9.3 MG/DL (8.5-10.1); CARBON DIOXIDE LEVEL 23 MEQ/L (21-32); CHLORIDE LEVEL 106 MEQ/L (98-107); CREATININE FOR GFR 0.93 MG/DL (0.70-1.30); GLOMERULAR FILTRATION RATE > 60.0 (>56); GLUCOSE, FASTING 140 MG/DL (70-100); NT-PRO BNP 79 PG/ML (<125); POTASSIUM SERUM 4.1 MEQ/L (3.5-5.1); SODIUM LEVEL 137 MEQ/L (136-145); TOTAL PROTEIN 7.8 GM/DL (6.4-8.2)
[2022-04-16 10:14] LABS: CK-MB VALUE MASS 2.4 NG/ML (<3.6); MB/CK RELATIVE INDEX 2.16 (< OR =4)
[2022-04-16] MEDS ORDERED: ISOVUE-370 76% 100ML VIAL As Ordered ONE (10:35)
[2022-04-16] MEDS ORDERED: APIXABAN 5 MG TAB (ELIQUIS) PO ONE (12:30)
[2022-04-16] MEDS ORDERED: NAPR-837 PO (12:37)
[2022-04-16 13:02] LABS: INR 0.95; PARTIAL THROMBOPLASTIN TIME 29.1 SECONDS (25.9-37.0); PROTHROMBIN TIME 13.1 SECONDS (12.7-14.5)
[2022-04-16 15:15] VITALS: BP 125/82
[2022-04-16] MEDS ORDERED: ELIQ5TAB PO (21:06)
[2022-04-18 08:24] LABS: DRVV SCREEN 36.6 SEC
[2022-04-19 15:08] LABS: ANTI THROMBIN 3 ANTIGEN IMMUNO 99 % (72-124); ANTI THROMBIN 3 FUNCT ACTIVITY 148 % (75-135); PROTEIN C FUNCTIONAL ACTIVITY 189 % (73-180); PROTEIN S FUNCTIONAL ACTIVITY 118 % (63-140)
[2022-04-23 13:07] LABS: CARDIOLIPIN IGA ANTIBODY <9 APL U/mL (0-11); CARDIOLIPIN IGG ANTIBODY <9 GPL U/mL (0-14); CARDIOLIPIN IGM ANTIBODY 13 MPL U/mL (0-12); PHOSPHOLIPIDS LEVEL 261 mg/dL (127-261)
== END 2022-04-16 15:28 | disposition home or self-care (01) ==
LOC: EDBD 08:48 → M ED 08:48
DX: I82.612 Acute embolism and thrombosis of superficial veins of left upper extremity (principal); F31.9 Bipolar disorder, unspecified; F25.9 Schizoaffective disorder, unspecified; Z86.73 Personal history of transient ischemic attack (TIA), and cerebral infarction without residual deficits; Z87.442 Personal history of urinary calculi; Z79.899 Other long term (current) drug therapy; Z79.82 Long term (current) use of aspirin; Z79.01 Long term (current) use of anticoagulants; Z88.0 Allergy status to penicillin; F17.200 Nicotine dependence, unspecified, uncomplicated

== ENCOUNTER 2022-04-16 16:32 | Emergency (ER) | payer MEDICARE, MEDICAID ==
[~2022-04-16] VITALS: Ht 175.3 cm; Wt 102.3 kg
[~2022-04-16 16:32] MED LIST changes: +NAPR-837 PO
[2022-04-16] MEDS ORDERED: ISOVUE-370 76% 100ML VIAL As Ordered ONE (19:13)
[2022-04-16] MEDS ORDERED: APIXABAN 5 MG TAB (ELIQUIS) PO ONE (20:35)
[2022-04-16 20:58] LABS: ABG BASE EXCESS 0.5 (-2.0-2.0); ABG HCO3 24.3 MEQ/L (22.0-26.0); ABG STANDARD HCO3 24.9 MEQ/L (22.0-26.0); ABG TOTAL CO2 25.5 MEQ/L (22.0-29.0); ABG pH (ARTERIAL) 7.436 UNITS (7.350-7.450)
[2022-04-16] MEDS ORDERED: ELIQ5TAB PO (21:06)
[2022-04-16 21:15] VITALS: BP 113/72
== END 2022-04-16 21:38 | disposition home or self-care (01) ==
LOC: M ED 16:32 → EDBD 16:32 → M ED 21:38
DX: I26.99 Other pulmonary embolism without acute cor pulmonale (principal); I10 Essential (primary) hypertension; Z88.0 Allergy status to penicillin; F17.200 Nicotine dependence, unspecified, uncomplicated

== ENCOUNTER 2022-04-19 16:15 | Emergency (ER) | payer MEDICARE, MEDICAID ==
[~2022-04-19] VITALS: Ht 175.3 cm; Wt 104.1 kg
[~2022-04-19 16:15] MED LIST changes: +ELIQ5TAB PO
[2022-04-19 18:00] LABS: HEMATOCRIT 44.6 % (42.0-52.0); HEMOGLOBIN 15.1 g/dl (13.5-17.5); MEAN CORPUSCULAR HEMOGLOBIN 31.6 pg (27.0-33.0); MEAN CORPUSCULAR HGB CONC 33.9 g/dl (32.0-36.5); MEAN CORPUSCULAR VOLUME 93.3 fl (80.0-96.0); PLATELET COUNT, AUTOMATED 244 10^3/uL (150-450); RED BLOOD COUNT 4.78 10^6/uL (4.30-6.10); WHITE BLOOD COUNT 10.4 10^3/uL (4.0-10.0)
[2022-04-19 18:34] LABS: RSV AMPLIFICATION NEGATIVE (NEGATIVE)
[2022-04-19] MEDS ORDERED: ELIQ5TAB PO (18:36)
[2022-04-19] MEDS ORDERED: MIRA3350 PO (18:36)
[2022-04-19] MEDS ORDERED: NAPR-885 PO (18:36)
[2022-04-19] MEDS ORDERED: HOME MED LIST COMPLETE! XX SCH (18:40)
[2022-04-19 18:45] LABS: ALBUMIN 3.7 GM/DL (3.2-5.2); ALT/SGPT 46 U/L (12-78); BILIRUBIN,DIRECT 0.2 MG/DL (0.0-0.2); BILIRUBIN,TOTAL 0.3 MG/DL (0.2-1.0); BLOOD UREA NITROGEN 14 MG/DL (7-18); CALCIUM LEVEL 8.9 MG/DL (8.5-10.1); CARBON DIOXIDE LEVEL 24 MEQ/L (21-32); CHLORIDE LEVEL 107 MEQ/L (98-107); CREATININE FOR GFR 0.86 MG/DL (0.70-1.30); ETHYL ALCOHOL (ETHANOL) < 0.003 % (0.000-0.010); GLOMERULAR FILTRATION RATE > 60.0 (>56); GLUCOSE, FASTING 85 MG/DL (70-100); SALICYLATE LEVEL 3.3 MG/DL (5.0-30.0); SODIUM LEVEL 137 MEQ/L (136-145)
[2022-04-19 18:46] LABS: ACETAMINOPHEN LEVEL < 2.0 UG/ML (10.0-30.0)
[2022-04-19 19:06] LABS: AMPHETAMINES LEVEL URINE NEGATIVE (NEGATIVE); BARBITURATES URINE NEGATIVE (NEGATIVE); BENZODIAZEPINES URINE NEGATIVE (NEGATIVE); CANNABINOIDS URINE NEGATIVE (NEGATIVE); COCAINE METABOLITE URINE NEGATIVE (NEGATIVE); METHADONE URINE NEGATIVE (NEGATIVE); OPIATES URINE NEGATIVE (NEGATIVE); PHENCYCLIDINE URINE NEGATIVE (NEGATIVE)
[2022-04-19] MEDS ORDERED: diphenhydrAMINE 25MG CAP PO PRN (19:50)
[2022-04-19] MEDS ORDERED: OLANZapine 10 MG TAB PO SCH (21:00)
[2022-04-19] MEDS ORDERED: APIXABAN 5 MG TAB (ELIQUIS) PO SCH (21:00)
[2022-04-19] MEDS ORDERED: PALIPERIDONE PAL 234MG/1.5ML INJ (INVEGA)(FREE PSY INPT ONLY) IM ONE (22:00)
[2022-04-19] MEDS ORDERED: PALIPERIDONE PALMITATE 234 MG/1.5 ML ONE (22:00)
[2022-04-19 22:02] VITALS: BP 108/77
[2022-04-20] MEDS ORDERED: FUROSEMIDE 40 MG TAB PO SCH (09:00)
[2022-04-20] MEDS ORDERED: NAPROXEN 250 MG TAB PO SCH (09:00)
[2022-04-20] MEDS ORDERED: ASPIRIN 81 MG CHEW TABLET PO SCH (09:00)
[2022-04-20] MEDS ORDERED: DOCUSATE SODIUM 100MG CAPSULE PO SCH (09:00)
== END 2022-04-19 23:14 | disposition home or self-care (01) ==
LOC: M ED 16:15
DX: F25.9 Schizoaffective disorder, unspecified (principal); Z91.19 Patient's noncompliance with other medical treatment and regimen; F32.A Depression, unspecified; F41.9 Anxiety disorder, unspecified; Z86.718 Personal history of other venous thrombosis and embolism; Z86.73 Personal history of transient ischemic attack (TIA), and cerebral infarction without residual deficits; Z87.442 Personal history of urinary calculi; Z88.0 Allergy status to penicillin; Z79.899 Other long term (current) drug therapy; Z79.82 Long term (current) use of aspirin; Z79.01 Long term (current) use of anticoagulants; F17.200 Nicotine dependence, unspecified, uncomplicated
CPT/HCPCS: 36415; 80048; 80076; 80143; 80307; 82077; 84443; 85027; 87631; 93005; 96372; 99284; J2426

== ENCOUNTER 2022-04-26 11:15 | Emergency (ER) | payer MEDICARE, MEDICAID ==
[~2022-04-26] VITALS: Ht 175.3 cm; Wt 102.3 kg
[~2022-04-26 11:15] MED LIST changes: +MIRA3350 PO; +NAPR-885 PO
[2022-04-26 13:01] LABS: ABG HCO3 22.6 MEQ/L (22.0-26.0); ABG PARTIAL PRESSURE CO2 34.7 mmHg (35.0-45.0); ABG PARTIAL PRESSURE O2 68.2 mmHg (75.0-100.0); ABG STANDARD HCO3 23.6 MEQ/L (22.0-26.0); ABG TOTAL CO2 23.6 MEQ/L (22.0-29.0); ABG pH (ARTERIAL) 7.431 UNITS (7.350-7.450)
[2022-04-26 13:20] LABS: BASO % 0.4 % (0.0-1.0); EOS % 0.4 % (0.0-3.0); HEMATOCRIT 46.8 % (42.0-52.0); HEMOGLOBIN 15.7 g/dl (13.5-17.5); LYMPH # 2.2 10^3/uL (1.5-5.0); LYMPH % 22.1 % (24.0-44.0); MEAN CORPUSCULAR HEMOGLOBIN 31.3 pg (27.0-33.0); MEAN CORPUSCULAR HGB CONC 33.5 g/dl (32.0-36.5); MEAN CORPUSCULAR VOLUME 93.2 fl (80.0-96.0); MONO # 0.8 10^3/uL (0.0-0.8); MONO % 7.8 % (2.0-8.0); NEUTROPHILS # 6.7 10^3/uL (1.5-8.5); PLATELET COUNT, AUTOMATED 274 10^3/uL (150-450); RED BLOOD COUNT 5.02 10^6/uL (4.30-6.10); WHITE BLOOD COUNT 9.7 10^3/uL (4.0-10.0)
[2022-04-26 13:48] LABS: CK-MB VALUE MASS 1.2 NG/ML (<3.6); MB/CK RELATIVE INDEX 1.2 (< OR =4)
[2022-04-26 13:54] LABS: ALBUMIN 4.2 GM/DL (3.2-5.2); ALT/SGPT 32 U/L (12-78); BILIRUBIN,DIRECT 0.2 MG/DL (0.0-0.2); BILIRUBIN,TOTAL 0.6 MG/DL (0.2-1.0); BLOOD UREA NITROGEN 16 MG/DL (7-18); CALCIUM LEVEL 9.5 MG/DL (8.5-10.1); CARBON DIOXIDE LEVEL 23 MEQ/L (21-32); CHLORIDE LEVEL 105 MEQ/L (98-107); CREATININE FOR GFR 1.03 MG/DL (0.70-1.30); GLOMERULAR FILTRATION RATE > 60.0 (>56); GLUCOSE, FASTING 92 MG/DL (70-100); NT-PRO BNP 77 PG/ML (<125); SODIUM LEVEL 136 MEQ/L (136-145); TOTAL PROTEIN 7.7 GM/DL (6.4-8.2)
[2022-04-26] MEDS ORDERED: ISOVUE-370 76% 100ML VIAL As Ordered ONE (14:14)
[2022-04-26] MEDS ORDERED: ALBUTEROL SULFATE 2.5 MG/0.5 ML INH NEB SOLN NEB PRN (16:30)
[2022-04-26] MEDS ORDERED: NICOTINE 21MG/24HR 1 EA TRANSDERMAL TD ONE (16:40)
[2022-04-26 17:00] VITALS: BP 125/82
[2022-04-26] MEDS ORDERED: IPRATROPIUM 0.5MG/ALBUTEROL 2.5MG INH SOL UD 3ML (DUONEB) NEB ONE (17:15)
[2022-04-26 17:17] VITALS: O2SAT 96
[2022-04-26] MEDS ORDERED: APIXABAN 5 MG TAB (ELIQUIS) PO SCH (21:00)
== END 2022-04-26 17:47 | disposition left against medical advice (07) ==
LOC: EDBD 11:15 → M ED 11:15
DX: R06.02 Shortness of breath (principal); J98.11 Atelectasis; F31.9 Bipolar disorder, unspecified; F25.9 Schizoaffective disorder, unspecified; Z86.711 Personal history of pulmonary embolism; Z86.73 Personal history of transient ischemic attack (TIA), and cerebral infarction without residual deficits; Z87.442 Personal history of urinary calculi; Z79.899 Other long term (current) drug therapy; Z79.82 Long term (current) use of aspirin; Z79.01 Long term (current) use of anticoagulants; Z88.0 Allergy status to penicillin; F17.200 Nicotine dependence, unspecified, uncomplicated
CPT/HCPCS: 36415; 36600; 71045; 71275; 80047; 80048; 80076; 82550; 82553; 82803; 83880; 84443; 84484; 85025; 87040; 87077; 87186; 87486; 87581; 87633; 87798; 93005; 93041; 94640; 94760; 99285; Q9967

== ENCOUNTER 2022-11-27 10:30 | Emergency (ER) | payer MEDICARE, MEDICAID ==
[~2022-11-27] VITALS: Ht 175.3 cm; Wt 109.1 kg
[~2022-11-27 10:30] MED LIST changes: +DIPH-435 PO; -DIPH25CA32 PO
[2022-11-27] MEDS ORDERED: IPRATROPIUM 0.5MG/ALBUTEROL 2.5MG INH SOL UD 3ML (DUONEB) NEB ONE (10:40)
[2022-11-27 11:07] LABS: VENOUS BASE EXCESS -1.7 (-2.0-2.0); VENOUS HCO3 22.9 MEQ/L (23.0-27.0); VENOUS O2 SATURATION 88.6 % (60.0-80.0); VENOUS PARTIAL PRESSURE CO2 38.6 mmHg (38.0-50.0); VENOUS PARTIAL PRESSURE O2 49.5 mmHg (30.0-50.0); VENOUS PH 7.391 UNITS (7.330-7.430); VENOUS STANDARD HCO3 22.8 MEQ/L; VENOUS TOTAL CO2 24.1 MEQ/L (24.0-28.0)
[2022-11-27 11:10] LABS: BASO % 0.3 % (0.0-1.0); EOS % 0.3 % (0.0-3.0); HEMATOCRIT 47.9 % (42.0-52.0); HEMOGLOBIN 16.1 g/dl (13.5-17.5); LYMPH # 1.6 10^3/uL (1.5-5.0); LYMPH % 13.4 % (24.0-44.0); MEAN CORPUSCULAR HEMOGLOBIN 31.4 pg (27.0-33.0); MEAN CORPUSCULAR HGB CONC 33.6 g/dl (32.0-36.5); MEAN CORPUSCULAR VOLUME 93.6 fl (80.0-96.0); MONO # 0.6 10^3/uL (0.0-0.8); MONO % 4.9 % (2.0-8.0); NEUTROPHILS # 9.4 10^3/uL (1.5-8.5); NEUTROPHILS % 80.8 % (36.0-66.0); PLATELET COUNT, AUTOMATED 230 10^3/uL (150-450); RED BLOOD COUNT 5.12 10^6/uL (4.30-6.10); WHITE BLOOD COUNT 11.6 10^3/uL (4.0-10.0)
[2022-11-27 11:33] LABS: CK-MB VALUE MASS < 1.0 NG/ML (<3.6)
[2022-11-27 11:35] LABS: ALBUMIN 4.1 G/DL (3.2-5.2); ALKALINE PHOSPHATASE 77 U/L (46-116); ALT/SGPT 46 U/L (7.0-40); AST/SGOT 21 U/L (<34); BILIRUBIN,DIRECT 0.2 MG/DL (<0.4); BILIRUBIN,TOTAL 0.6 MG/DL (0.3-1.2); BLOOD UREA NITROGEN 11 MG/DL (9-23); CALCIUM LEVEL 9.3 MG/DL (8.5-10.1); CARBON DIOXIDE LEVEL 23 MMOL/L (20-31); CHLORIDE LEVEL 106 MMOL/L (98-107); CPK CREATINE PHOSPHOKINASE 86 U/L (46-171); CREATININE FOR GFR 0.81 MG/DL (0.70-1.30); GLOMERULAR FILTRATION RATE > 60.0 (>56); GLUCOSE, FASTING 100 MG/DL (60-100); MB/CK RELATIVE INDEX 1.16 (< OR =4); POTASSIUM SERUM 3.8 MMOL/L (3.5-5.1); SODIUM LEVEL 136 MMOL/L (136-145); TOTAL PROTEIN 7.5 G/DL (5.7-8.2)
[2022-11-27 11:38] LABS: THYROID STIMULATING HORMONE 0.887 uIU/ML (0.55-4.78)
[2022-11-27] MEDS ORDERED: ISOVUE-370 76% 100ML VIAL As Ordered ONE (12:14)
[2022-11-27 13:22] VITALS: O2SAT 99
[2022-11-27 15:00] VITALS: BP 132/69
== END 2022-11-27 16:00 | disposition home or self-care (01) ==
LOC: EDBD 10:30 → M ED 10:30
DX: R06.00 Dyspnea, unspecified (principal); E78.5 Hyperlipidemia, unspecified; I50.20 Unspecified systolic (congestive) heart failure; F20.9 Schizophrenia, unspecified; Z86.711 Personal history of pulmonary embolism; Z86.73 Personal history of transient ischemic attack (TIA), and cerebral infarction without residual deficits; F40.00 Agoraphobia, unspecified; Z79.01 Long term (current) use of anticoagulants; Z79.899 Other long term (current) drug therapy; Z88.0 Allergy status to penicillin; Z79.82 Long term (current) use of aspirin
CPT/HCPCS: 36415; 71045; 71275; 80048; 80076; 82550; 82553; 82803; 83880; 84443; 84484; 85025; 87040; 87486; 87581; 87633; 87798; 93005; 93041; 94640; 94760; 99285; Q9967

== ENCOUNTER 2022-12-24 11:06 | Emergency (ER) | payer MEDICARE, MEDICAID ==
[~2022-12-24] VITALS: Ht 175.3 cm; Wt 104.5 kg
[2022-12-24 11:46] LABS: VENOUS BASE EXCESS -1.8 (-2.0-2.0); VENOUS O2 SATURATION 93.6 % (60.0-80.0); VENOUS PARTIAL PRESSURE CO2 35.2 mmHg (38.0-50.0); VENOUS PARTIAL PRESSURE O2 63.8 mmHg (30.0-50.0); VENOUS PH 7.414 UNITS (7.330-7.430); VENOUS STANDARD HCO3 22.9 MMOL/L; VENOUS TOTAL CO2 23.1 MMOL/L (24.0-28.0)
[2022-12-24 11:55] LABS: BASO % 0.4 % (0.0-1.0); EOS % 0.4 % (0.0-3.0); HEMATOCRIT 49.1 % (42.0-52.0); HEMOGLOBIN 16.5 g/dl (13.5-17.5); LYMPH # 2.2 10^3/uL (1.5-5.0); LYMPH % 22.9 % (24.0-44.0); MEAN CORPUSCULAR HEMOGLOBIN 31.1 pg (27.0-33.0); MEAN CORPUSCULAR HGB CONC 33.6 g/dl (32.0-36.5); MEAN CORPUSCULAR VOLUME 92.6 fl (80.0-96.0); MONO # 0.7 10^3/uL (0.0-0.8); MONO % 7.7 % (2.0-8.0); NEUTROPHILS # 6.4 10^3/uL (1.5-8.5); NEUTROPHILS % 68.3 % (36.0-66.0); PLATELET COUNT, AUTOMATED 244 10^3/uL (150-450); WHITE BLOOD COUNT 9.4 10^3/uL (4.0-10.0)
[2022-12-24 13:39] LABS: ALKALINE PHOSPHATASE 70 U/L (46-116); ALT/SGPT 48 U/L (7.0-40); AST/SGOT 51 U/L (<34); BILIRUBIN,DIRECT 0.2 MG/DL (<0.4); BILIRUBIN,TOTAL 0.8 MG/DL (0.3-1.2); BLOOD UREA NITROGEN 17 MG/DL (9-23); CALCIUM LEVEL 9.2 MG/DL (8.5-10.1); CARBON DIOXIDE LEVEL 24 MMOL/L (20-31); CHLORIDE LEVEL 103 MMOL/L (98-107); CREATININE FOR GFR 0.95 MG/DL (0.70-1.30); GLOMERULAR FILTRATION RATE > 60.0 (>56); GLUCOSE, FASTING 93 MG/DL (60-100); POTASSIUM SERUM 5.4 MMOL/L (3.5-5.1); SODIUM LEVEL 138 MMOL/L (136-145); THYROID STIMULATING HORMONE 1.307 uIU/ML (0.55-4.78); THYROXINE (T4) 10.9 UG/DL (4.5-10.9); TOTAL PROTEIN 7.8 G/DL (5.7-8.2)
[2022-12-24] MEDS ORDERED: ISOVUE-370 76% 100ML VIAL As Ordered ONE (14:04)
[2022-12-24 14:42] LABS: CK-MB VALUE MASS < 1.0 NG/ML (<3.6)
[2022-12-24 14:43] LABS: CPK CREATINE PHOSPHOKINASE 128 U/L (46-171); MB/CK RELATIVE INDEX 0.78 (< OR =4)
[2022-12-24 15:18] LABS: CK-MB VALUE MASS < 1.0 NG/ML (<3.6); CPK CREATINE PHOSPHOKINASE 160 U/L (46-171); MB/CK RELATIVE INDEX 0.62 (< OR =4)
[2022-12-24] MEDS ORDERED: PRED10TA2 PO (15:43)
[2022-12-24] MEDS ORDERED: VENTAER INH (15:43)
[2022-12-24 16:20] VITALS: BP 123/91
== END 2022-12-24 16:27 | disposition home or self-care (01) ==
LOC: EDBD 11:06 → M ED 11:06
DX: J44.1 Chronic obstructive pulmonary disease with (acute) exacerbation (principal); F25.9 Schizoaffective disorder, unspecified; F31.9 Bipolar disorder, unspecified; Z86.73 Personal history of transient ischemic attack (TIA), and cerebral infarction without residual deficits; Z86.718 Personal history of other venous thrombosis and embolism; Z88.0 Allergy status to penicillin; Z79.899 Other long term (current) drug therapy; Z79.82 Long term (current) use of aspirin
CPT/HCPCS: 36415; 71045; 71275; 80048; 80076; 82550; 82553; 82803; 83605; 83880; 84436; 84443; 84484; 85025; 87040; 87486; 87581; 87633; 87798; 93005; 93041; 94760; 99285; Q9967